=== PATIENT | male | born 1980 | race Caucasian/White ===

== ENCOUNTER 2017-04-15 05:59 | Inpatient (IN) | payer OTHER ==
[~2017-04-15] VITALS: Ht 167.6 cm; Wt 103.4 kg
[2017-04-15] MEDS ORDERED: MAGNESIUM/ALUMINUM HYDROXIDE/SIMETHICONE 30ML UDC PO STA (06:27)
[2017-04-15] MEDS ORDERED: ONDANSETRON HCL 4MG/2ML VIAL IV STA (06:27)
[2017-04-15] MEDS ORDERED: SODIUM CHLORIDE 0.9% 1,000 ML IV ONE ×2 (06:27→07:45)
[2017-04-15] MEDS ORDERED: FAMOTIDINE 20MG/2ML VIAL IV STA (06:27)
[2017-04-15 06:41] LABS: BASOPHILS % 0.5 % (0.0-2.0); EOSINOPHILS % 1.6 % (0.0-5.0); HEMATOCRIT. 51.6 % (42.0-52.0); HEMOGLOBIN. 17.6 g/dL (14.0-18.0); LYMPHOCYTES % 18.1 % (20.0-50.0); MEAN CORPUSCULAR HEMOGLOBIN 28.1 pg (28.0-32.0); MEAN CORPUSCULAR VOLUME 82.2 fL (80.0-94.0); MEAN PLATELET VOLUME 9.5 fl (7.4-10.4); NEUTROPHILS % 73.8 % (40.0-76.0); PLATELET 166 x1000/uL (130-400); RED BLOOD CELL COUNT 6.27 mill/uL (4.7-6.1); RED CELL DISTRIBUTION WIDTH 13.3 % (11.6-14.6)
[2017-04-15 06:47] LABS: INR 1.1; PROTHROMBIN TIME 11.1 sec (9.4-11.6)
[2017-04-15 06:57] LABS: CARBON DIOXIDE 24 mEq/L (21-32); CHLORIDE 101 mEq/L (98-107); ETHANOL BLOOD < 10 mg/dL; TROPONIN I < 0.02 ng/mL (0.00-0.04)
[2017-04-15] MEDS ORDERED: FENTANYL CITRATE/PF 50MCG/ML 2ML VIAL IV ONE (08:30)
[2017-04-15 08:34] LABS: GLUCOSE URINE 3+ (NEGATIVE); KETONES URINE TRACE (NEGATIVE); LEUKOCYTE ESTERASE URINE NEGATIVE (NEGATIVE); NITRITE URINE NEGATIVE (NEGATIVE); OCCULT BLOOD URINE NEGATIVE (NEGATIVE); PH URINE 5.5 (4.5-8.0); PROTEIN URINE TRACE (NEGATIVE); SPECIFIC GRAVITY URINE 1.039 (1.005-1.030); UROBILINOGEN URINE 0.2 E.U./dL (0.2-1.0)
[2017-04-15 08:36] LABS: CLARITY URINE CLEAR (CLEAR); COLOR URINE YELLOW (YELLOW)
[2017-04-15 09:09] LABS: *AMPHETAMINES SCREEN URINE NEGATIVE (NEGATIVE); *BARBITURATES SCREEN URINE NEGATIVE (NEGATIVE); *BENZODIAZEPINES SCREEN URINE NEGATIVE (NEGATIVE); *COCAINE SCREEN URINE NEGATIVE (NEGATIVE); CANNABINOID URINE SCREEN PRESUMTIVE POSITIVE (NEGATIVE); METHADONE URINE SCREEN NEGATIVE (NEGATIVE); OPIATES URINE SCREEN NEGATIVE (NEGATIVE); PHENCYCLIDINE URINE SCREEN NEGATIVE (NEGATIVE)
[2017-04-15 12:00] VITALS: BP 105/59
[2017-04-15] MEDS ORDERED: INSASP SUBCUT (13:33)
[2017-04-15] MEDS ORDERED: HYDR25TA (13:33)
[2017-04-15 13:38] VITALS: BP 105/59
[2017-04-15] MEDS ORDERED: IPRATROPIUM/ALBUTEROL 0.5-3(2.5)MG/3ML NEB INH PRN ×2 (15:45→16:30)
[2017-04-15] MEDS ORDERED: DEXTROSE 50% WATER 50ML SYRINGE IV PRN ×2 (15:45→16:00)
[2017-04-15] MEDS ORDERED: ONDANSETRON HCL 4MG/2ML VIAL IV PRN ×2 (15:45→16:30)
[2017-04-15] MEDS ORDERED: ACETAMINOPHEN 325MG TABLET PO PRN (15:45)
[2017-04-15] MEDS ORDERED: DIPHENHYDRAMINE 50MG/ML VIAL IV PRN (15:45)
[2017-04-15] MEDS ORDERED: CLONIDINE 0.1MG TABLET PO PRN (15:45)
[2017-04-15 16:00] VITALS: BP 123/71
[2017-04-15] MEDS ORDERED: SODIUM CHLORIDE 0.9% 1,000 ML IV SCH (16:08)
[2017-04-15] MEDS: HYDROCODONE/ACETAMINOPHEN 5/325MG TABLET PO PRN ×2 (16:14→20:28)
[2017-04-15] MEDS ORDERED: DOCUSATE SODIUM 100MG CAPSULE PO PRN (16:30)
[2017-04-15] MEDS: BLOOD SUGAR DIAGNOSTIC STRIP TEST SCH ×2 (17:16→20:29)
[2017-04-15] MEDS: ENOXAPARIN 30MG/0.3ML SYR SUBCUT SCH (17:18)
[2017-04-15] MEDS ORDERED: BLOOD SUGAR DIAGNOSTIC STRIP TEST SCH (17:20)
[2017-04-15] MEDS ORDERED: INSULIN LISPRO 100 UNITS/ML SUBCUT SCH (17:50)
[2017-04-15] MEDS ORDERED: MVI, ADULT NO.1 10 ML, FOLIC ACID 1 MG, THIAMINE HCL 100 MG in SODIUM CHLORIDE 0.9% 1,0... IV NR ×4 (18:00)
[2017-04-15] MEDS: INSULIN LISPRO 100 UNITS/ML SUBCUT SCH ×2 (18:20→23:13)
[2017-04-15 20:00] VITALS: BP 119/76
[2017-04-15] MEDS ORDERED: MAGNESIUM 1 G PREMIX 100 ML IV NR (21:00)
[2017-04-15 23:48] LABS: CREATINE KINASE 44 IU/L (39-308); CREATINE KINASE MB FRACTION < 0.5 ng/mL (0.5-3.6); TROPONIN I < 0.02 ng/mL (0.00-0.04)
[2017-04-16] VITALS: BP 116/63
[2017-04-16] MEDS ORDERED: SODIUM CHLORIDE 0.9% 1,000 ML IV SCH (02:00)
[2017-04-16] MEDS: HYDROCODONE/ACETAMINOPHEN 5/325MG TABLET PO PRN ×3 (03:14→13:13)
[2017-04-16 04:00] VITALS: BP 116/66
[2017-04-16 06:25] LABS: BASOPHILS % 0.3 % (0.0-2.0); EOSINOPHILS % 1.9 % (0.0-5.0); HEMATOCRIT. 45.9 % (42.0-52.0); HEMOGLOBIN. 15.7 g/dL (14.0-18.0); LYMPHOCYTES % 29.2 % (20.0-50.0); MEAN CORPUSCULAR HEMOGLOBIN 28.4 pg (28.0-32.0); NEUTROPHILS % 61.6 % (40.0-76.0); RED BLOOD CELL COUNT 5.53 mill/uL (4.7-6.1); RED CELL DISTRIBUTION WIDTH 13.4 % (11.6-14.6)
[2017-04-16] MEDS: BLOOD SUGAR DIAGNOSTIC STRIP TEST SCH ×2 (06:51→12:24)
[2017-04-16] MEDS: ENOXAPARIN 30MG/0.3ML SYR SUBCUT SCH (06:51)
[2017-04-16] MEDS: INSULIN LISPRO 100 UNITS/ML SUBCUT SCH ×2 (06:57→13:16)
[2017-04-16 07:27] LABS: CLARITY URINE CLEAR (CLEAR); COLOR URINE DARK YELLOW (YELLOW); GLUCOSE URINE 3+ (NEGATIVE); KETONES URINE NEGATIVE (NEGATIVE); LEUKOCYTE ESTERASE URINE NEGATIVE (NEGATIVE); NITRITE URINE NEGATIVE (NEGATIVE); OCCULT BLOOD URINE NEGATIVE (NEGATIVE); PH URINE 5.5 (4.5-8.0); PROTEIN URINE 1+ (NEGATIVE); SPECIFIC GRAVITY URINE 1.038 (1.005-1.030)
[2017-04-16 07:44] LABS: CARBON DIOXIDE 26 mEq/L (21-32); CHLORIDE 101 mEq/L (98-107)
[2017-04-16 07:56] LABS: HDL CHOLESTEROL 25 mg/dL (40-59); LDL CHOLESTEROL 81 mg/dL (5-100)
[2017-04-16 08:00] VITALS: BP 135/80
[2017-04-16] MEDS ORDERED: THIAMINE HCL 100MG TABLET PO SCH (09:00)
[2017-04-16] MEDS ORDERED: FOLIC ACID 1MG TABLET PO SCH (09:00)
[2017-04-16] MEDS ORDERED: MULTIVITAMINS,THER W-MINERALS TABLET PO SCH (09:00)
[2017-04-16 10:54] LABS: PLATELET 147 x1000/uL (130-400)
[2017-04-16 12:00] VITALS: BP 131/84
[2017-04-16 15:38] VITALS: BP 131/84
== END 2017-04-16 16:20 | disposition home or self-care (01) | DRG 282 ==
LOC: ER 05:59 → 6EST 07:42 → EDBEDREQ 07:52 → EDBEDREQTM 07:52 → ENRESERV 11:48
PROVIDERS: ADMIT Internal Medicine; ATTEND Internal Medicine
DX: K85.20 Alcohol induced acute pancreatitis without necrosis or infection (principal); E10.65 Type 1 diabetes mellitus with hyperglycemia; K70.30 Alcoholic cirrhosis of liver without ascites; F17.210 Nicotine dependence, cigarettes, uncomplicated; Z79.4 Long term (current) use of insulin
CPT/HCPCS: 36415; 71010; 76700; 80053; 80061; 80305; 81001; 82550; 82553; 82962; 83036; 83690; 83735; 84443; 84484; 85025; 85610; 87040; 87086; 93005; 93970; 96361; 96374; 96375; 99285; G0482; J1650; J1815; J2405; J3010; J3411; J3475; J3490; J7030

== ENCOUNTER 2019-02-10 07:27 | Emergency (ER) | payer SELFPAY ==
[~2019-02-10] VITALS: Ht 167.6 cm; Wt 100.0 kg
[~2019-02-10 07:27] MED LIST: HYDR25TA; INSASP SUBCUT
[2019-02-10] MEDS ORDERED: METOCLOPRAMIDE HCL 10MG/2ML VIAL IV STA (08:38)
[2019-02-10] MEDS ORDERED: MORPHINE SULFATE 4 MG/ML CPJ (NOT FOR IM USE) IV STA (08:38)
[2019-02-10] MEDS ORDERED: ONDANSETRON HCL 4MG/2ML INJ IV STA (08:38)
[2019-02-10] MEDS ORDERED: SODIUM CHLORIDE 0.9% 1,000 ML IV ONE (08:38)
[2019-02-10 09:07] LABS: BASOPHILS % 0.4 % (0.0-2.0); EOSINOPHILS % 1.2 % (0.0-5.0); LYMPHOCYTES % 18.4 % (20.0-50.0); MEAN CORPUSCULAR HEMOGLOBIN 28.4 pg (28.0-32.0); MEAN CORPUSCULAR VOLUME 83.6 fL (80.0-94.0); MEAN PLATELET VOLUME 9.6 fl (7.4-10.4); PLATELET 158 x1000/uL (130-400); RED BLOOD CELL COUNT 5.98 mill/uL (4.7-6.1); RED CELL DISTRIBUTION WIDTH 13.7 % (11.6-14.6)
[2019-02-10 09:11] LABS: CHLORIDE 103 mEq/L (98-107)
[2019-02-10 09:12] LABS: PROTHROMBIN TIME 10.6 sec (9.6-11.0)
[2019-02-10 09:15] LABS: ETHANOL BLOOD < 10 mg/dL
[2019-02-10 11:15] VITALS: BP 145/98
[2019-02-10] MEDS ORDERED: IOHEXOL-300 100 ML BOTTLE ONE (13:47)
== END 2019-02-10 13:15 | disposition home or self-care (01) ==
LOC: ER 07:27 → CANBEDREQ 19:16
DX: R10.12 Left upper quadrant pain (principal); R11.2 Nausea with vomiting, unspecified; R10.84 Generalized abdominal pain; E11.65 Type 2 diabetes mellitus with hyperglycemia; F12.10 Cannabis abuse, uncomplicated; F17.200 Nicotine dependence, unspecified, uncomplicated; Z79.4 Long term (current) use of insulin; Z86.19 Personal history of other infectious and parasitic diseases
CPT/HCPCS: 36415; 71045; 74177; 80053; 80320; 82962; 83690; 84484; 85025; 85610; 93005; 96361; 96374; 96375; 99284; J2270; J2405; J2765; J7030; Q9967; G0480

== ENCOUNTER 2019-02-18 15:48 | Emergency (ER) | payer SELFPAY ==
[~2019-02-18] VITALS: Ht 170.2 cm; Wt 94.5 kg
[2019-02-18] MEDS ORDERED: SODIUM CHLORIDE 0.9% 1,000 ML IV ONE (15:55)
[2019-02-18 16:20] LABS: BASOPHILS % 0.4 % (0.0-2.0); EOSINOPHILS % 0.2 % (0.0-5.0); HEMATOCRIT. 52.4 % (42.0-52.0); HEMOGLOBIN. 17.7 g/dL (14.0-18.0); LYMPHOCYTES % 11.2 % (20.0-50.0); MEAN CORPUSCULAR HEMOGLOBIN 28.3 pg (28.0-32.0); MEAN PLATELET VOLUME 9.7 fl (7.4-10.4); MONOCYTES % 4.3 % (2.0-8.0); NEUTROPHILS % 83.9 % (40.0-76.0); PLATELET 224 x1000/uL (130-400); RED BLOOD CELL COUNT 6.24 mill/uL (4.7-6.1); RED CELL DISTRIBUTION WIDTH 13.8 % (11.6-14.6)
[2019-02-18 16:22] LABS: CHLORIDE 99 mEq/L (98-107)
[2019-02-18 16:23] LABS: INR 1.1
[2019-02-18 19:19] LABS: CLARITY URINE CLEAR (CLEAR); COLOR URINE YELLOW (YELLOW); KETONES URINE 1+ (NEGATIVE); LEUKOCYTE ESTERASE URINE NEGATIVE (NEGATIVE); NITRITE URINE NEGATIVE (NEGATIVE); OCCULT BLOOD URINE NEGATIVE (NEGATIVE); PROTEIN URINE 2+ (NEGATIVE); SPECIFIC GRAVITY URINE 1.048 (1.005-1.030)
[2019-02-18 20:55] VITALS: BP 136/81
== END 2019-02-18 20:58 | disposition home or self-care (01) ==
LOC: ER 15:48
DX: R56.9 Unspecified convulsions (principal); R10.9 Unspecified abdominal pain; E11.9 Type 2 diabetes mellitus without complications; Z79.4 Long term (current) use of insulin
CPT/HCPCS: 36415; 71045; 74176; 80053; 81003; 82962; 83690; 85025; 85610; 99284; J7030

== ENCOUNTER 2019-02-20 13:20 | Emergency (ER) | payer MEDICAID ==
[~2019-02-20] VITALS: Ht 175.3 cm; Wt 95.0 kg
[2019-02-20 15:39] VITALS: BP 154/87
== END 2019-02-20 16:23 | disposition left against medical advice (07) ==
LOC: ER 13:20
DX: R10.9 Unspecified abdominal pain (principal); F12.10 Cannabis abuse, uncomplicated; E11.9 Type 2 diabetes mellitus without complications; I10 Essential (primary) hypertension
CPT/HCPCS: 99283

== ENCOUNTER 2019-04-16 09:22 | Emergency (ER) | payer SELFPAY ==
[~2019-04-16] VITALS: Ht 182.9 cm; Wt 90.0 kg
[2019-04-16] MEDS ORDERED: MORPHINE SULFATE 4 MG/ML CPJ (NOT FOR IM USE) IV STA (10:05)
[2019-04-16] MEDS ORDERED: SODIUM CHLORIDE 0.9% 1,000 ML IV ONE (10:05)
[2019-04-16] MEDS ORDERED: FAMOTIDINE 20MG/2ML VIAL IV STA (10:05)
[2019-04-16] MEDS ORDERED: METOCLOPRAMIDE HCL 10MG/2ML VIAL IV ONE (10:15)
[2019-04-16 10:21] LABS: BASOPHILS % 0.3 % (0.0-2.0); EOSINOPHILS % 0.6 % (0.0-5.0); HEMATOCRIT. 48.5 % (42.0-52.0); HEMOGLOBIN. 16.4 g/dL (14.0-18.0); LYMPHOCYTES % 18.7 % (20.0-50.0); MEAN CORPUSCULAR HEMOGLOBIN 28.3 pg (28.0-32.0); MEAN CORPUSCULAR VOLUME 83.6 fL (80.0-94.0); MEAN PLATELET VOLUME 9.8 fl (7.4-10.4); MONOCYTES % 6.3 % (2.0-8.0); NEUTROPHILS % 74.1 % (40.0-76.0); PLATELET 187 x1000/uL (130-400); RED CELL DISTRIBUTION WIDTH 13.7 % (11.6-14.6)
[2019-04-16 10:25] LABS: CHLORIDE 101 mEq/L (98-107)
[2019-04-16 10:26] LABS: INR 1.1; PROTHROMBIN TIME 11.4 sec (9.6-11.0)
[2019-04-16 12:44] VITALS: BP 112/82
[2019-04-16 12:54] LABS: CLARITY URINE CLEAR (CLEAR); COLOR URINE YELLOW (YELLOW); KETONES URINE 1+ (NEGATIVE); LEUKOCYTE ESTERASE URINE NEGATIVE (NEGATIVE); NITRITE URINE NEGATIVE (NEGATIVE); OCCULT BLOOD URINE NEGATIVE (NEGATIVE); PH URINE 6.5 (4.5-8.0); PROTEIN URINE 2+ (NEGATIVE); SPECIFIC GRAVITY URINE 1.035 (1.005-1.030)
== END 2019-04-16 12:47 | disposition home or self-care (01) ==
LOC: ER 09:22
DX: K31.84 Gastroparesis (principal); R56.9 Unspecified convulsions; E11.9 Type 2 diabetes mellitus without complications; I10 Essential (primary) hypertension; F17.200 Nicotine dependence, unspecified, uncomplicated; Z71.6 Tobacco abuse counseling; Z79.4 Long term (current) use of insulin
CPT/HCPCS: 36415; 70450; 80053; 81003; 83690; 85025; 85610; 96361; 96374; 96375; 99284; 99406; J2270; J2765; J3490; J7030

== ENCOUNTER 2019-04-22 21:28 | Emergency (ER) | payer SELFPAY ==
[~2019-04-22] VITALS: Ht 172.7 cm; Wt 82.0 kg
[2019-04-22] MEDS ORDERED: LORAZEPAM 2MG/ML CPJ ONE (21:58)
[2019-04-22] MEDS ORDERED: SODIUM CHLORIDE 0.9% 1,000 ML IV ONE (22:12)
[2019-04-22] MEDS ORDERED: METOCLOPRAMIDE HCL 10MG/2ML VIAL IV STA (22:12)
[2019-04-22 22:36] LABS: BASOPHILS % 0.3 % (0.0-2.0); EOSINOPHILS % 1.1 % (0.0-5.0); HEMATOCRIT. 48.6 % (42.0-52.0); HEMOGLOBIN. 16.2 g/dL (14.0-18.0); LYMPHOCYTES % 23.6 % (20.0-50.0); MEAN CORPUSCULAR HEMOGLOBIN 27.9 pg (28.0-32.0); MEAN CORPUSCULAR VOLUME 83.7 fL (80.0-94.0); MEAN PLATELET VOLUME 9.2 fl (7.4-10.4); MONOCYTES % 6.8 % (2.0-8.0); NEUTROPHILS % 68.2 % (40.0-76.0); PLATELET 200 x1000/uL (130-400); RED BLOOD CELL COUNT 5.81 mill/uL (4.7-6.1); RED CELL DISTRIBUTION WIDTH 13.9 % (11.6-14.6)
[2019-04-22 22:39] LABS: CHLORIDE 103 mEq/L (98-107)
[2019-04-22 22:43] LABS: ETHANOL BLOOD < 10 mg/dL
[2019-04-23 05:10] LABS: CLARITY URINE CLEAR (CLEAR); COLOR URINE DARK YELLOW (YELLOW); KETONES URINE 1+ (NEGATIVE); LEUKOCYTE ESTERASE URINE NEGATIVE (NEGATIVE); NITRITE URINE NEGATIVE (NEGATIVE); OCCULT BLOOD URINE NEGATIVE (NEGATIVE); PH URINE 6.5 (4.5-8.0); PROTEIN URINE 2+ (NEGATIVE); SPECIFIC GRAVITY URINE 1.025 (1.005-1.030)
[2019-04-23 05:40] VITALS: BP 130/75
[2019-04-23 05:46] LABS: *COCAINE SCREEN URINE NEGATIVE (NEGATIVE)
[2019-04-23 05:47] LABS: *AMPHETAMINES SCREEN URINE NEGATIVE (NEGATIVE); *BARBITURATES SCREEN URINE NEGATIVE (NEGATIVE); CANNABINOID URINE SCREEN PRESUMTIVE POSITIVE (NEGATIVE); METHADONE URINE SCREEN NEGATIVE (NEGATIVE); OPIATES URINE SCREEN NEGATIVE (NEGATIVE); PHENCYCLIDINE URINE SCREEN NEGATIVE (NEGATIVE)
[2019-04-23 05:48] LABS: *BENZODIAZEPINES SCREEN URINE NEGATIVE (NEGATIVE)
== END 2019-04-23 05:40 | disposition home or self-care (01) ==
LOC: ER 21:28
DX: R10.9 Unspecified abdominal pain (principal); G89.29 Other chronic pain; E11.43 Type 2 diabetes mellitus with diabetic autonomic (poly)neuropathy; K31.84 Gastroparesis; I10 Essential (primary) hypertension; F17.200 Nicotine dependence, unspecified, uncomplicated; Z79.4 Long term (current) use of insulin
CPT/HCPCS: 36415; 70450; 71045; 74176; 80053; 80305; 80320; 81003; 83690; 85025; 93005; 96374; 99284; J2060; J2765; J7030; G0480

== ENCOUNTER 2019-06-02 23:59 | Emergency (ER) | payer SELFPAY ==
[~2019-06-02] VITALS: Ht 177.8 cm; Wt 113.0 kg
[2019-06-03 00:06] VITALS: BP 131/76
== END 2019-06-03 01:16 | disposition left against medical advice (07) ==
LOC: ER 23:59
DX: R11.0 Nausea (principal); Z53.21 Procedure and treatment not carried out due to patient leaving prior to being seen by health care provider

== ENCOUNTER 2019-06-04 13:48 | Inpatient (IN) | payer SELFPAY ==
[~2019-06-04] VITALS: Ht 167.6 cm; Wt 103.0 kg
[2019-06-04] MEDS ORDERED: SODIUM CHLORIDE 0.9% 1,000 ML IV ONE ×2 (14:12→15:38)
[2019-06-04] MEDS ORDERED: ACTIVATED CHARCOAL 50 G/240 ML TUBE PO ONE (14:45)
[2019-06-04] MEDS ORDERED: ONDANSETRON HCL 4MG/2ML INJ IV ONE ×3 (14:45→16:15)
[2019-06-04] MEDS ORDERED: ONDANSETRON HCL 4MG/2ML INJ ONE (14:53)
[2019-06-04 15:00] LABS: BASOPHILS % 0.7 % (0.0-2.0); EOSINOPHILS % 0.2 % (0.0-5.0); HEMOGLOBIN. 17.7 g/dL (14.0-18.0); MEAN CORPUSCULAR HEMOGLOBIN 28.1 pg (28.0-32.0); MEAN CORPUSCULAR VOLUME 84.3 fL (80.0-94.0); NEUTROPHILS % 72.1 % (40.0-76.0); PLATELET 273 x1000/uL (130-400); RED BLOOD CELL COUNT 6.29 mill/uL (4.7-6.1); RED CELL DISTRIBUTION WIDTH 14.1 % (11.6-14.6)
[2019-06-04 15:06] LABS: CHLORIDE 102 mEq/L (98-107)
[2019-06-04 15:10] LABS: ETHANOL BLOOD < 10 mg/dL
[2019-06-04 15:18] LABS: BG BASE EXCESS -6.9 mmol/L (-2.0-2.0); BG CARBOXYHEMOGLOBIN 2.5 % (0.5-1.5); BG DEOXYHEMOGLOBIN 2.5 % (0.0-5.0); BG FRACTION INSPIRED OXYGEN 21; BG HCO3 ACT 15.9 mmol/L (22.0-26.0); BG METHEMOGLOBIN 0.3 % (0.0-1.5); BG OXYGEN SATURATION 97.4 % (92.0-98.5); BG OXYHEMOGLOBIN 94.7 % (94.0-97.0); BG PCO2 26.6 mmHg (35.0-45.0); BG PH 7.394 (7.350-7.450); BG PO2 94.3 mmHg (75.0-100.0); BG SAMPLE SITE RIGHT RADIAL; BG TOTAL HEMOGLOBIN 17.4 g/dL (12.0-18.0); BG VENT MODE ROOM AIR
[2019-06-04] MEDS ORDERED: LORAZEPAM 2MG/ML CPJ IV ONE (16:15)
[2019-06-04] MEDS ORDERED: LEVETIRACETAM 500MG PREMIX 100 ML IV ONE (16:15)
[2019-06-04 17:18] LABS: BG BASE EXCESS -3.5 mmol/L (-2.0-2.0); BG CARBOXYHEMOGLOBIN 2.1 % (0.5-1.5); BG DEOXYHEMOGLOBIN 3.6 % (0.0-5.0); BG FRACTION INSPIRED OXYGEN 21; BG HCO3 ACT 20.5 mmol/L (22.0-26.0); BG METHEMOGLOBIN 0.2 % (0.0-1.5); BG OXYGEN SATURATION 96.3 % (92.0-98.5); BG OXYHEMOGLOBIN 94.1 % (94.0-97.0); BG PCO2 34.3 mmHg (35.0-45.0); BG PH 7.394 (7.350-7.450); BG PO2 84.4 mmHg (75.0-100.0); BG SAMPLE SITE RIGHT RADIAL; BG TOTAL HEMOGLOBIN 16.4 g/dL (12.0-18.0); BG VENT MODE ROOM AIR
[2019-06-04 19:48] LABS: CLARITY URINE CLEAR (CLEAR); COLOR URINE YELLOW (YELLOW); KETONES URINE 1+ (NEGATIVE); LEUKOCYTE ESTERASE URINE NEGATIVE (NEGATIVE); NITRITE URINE NEGATIVE (NEGATIVE); OCCULT BLOOD URINE TRACE (NEGATIVE); PROTEIN URINE 3+ (NEGATIVE); SPECIFIC GRAVITY URINE 1.021 (1.005-1.030)
[2019-06-04 20:22] LABS: *AMPHETAMINES SCREEN URINE NEGATIVE (NEGATIVE)
[2019-06-04 20:23] LABS: *BARBITURATES SCREEN URINE NEGATIVE (NEGATIVE); *BENZODIAZEPINES SCREEN URINE NEGATIVE (NEGATIVE); *COCAINE SCREEN URINE NEGATIVE (NEGATIVE); METHADONE URINE SCREEN NEGATIVE (NEGATIVE); OPIATES URINE SCREEN NEGATIVE (NEGATIVE); PHENCYCLIDINE URINE SCREEN NEGATIVE (NEGATIVE)
[2019-06-04 20:24] LABS: CANNABINOID URINE SCREEN PRESUMTIVE POSITIVE (NEGATIVE)
[2019-06-04] MEDS ORDERED: ACETAMINOPHEN 325MG TABLET PO PRN (22:45)
[2019-06-04] MEDS ORDERED: DIPHENHYDRAMINE 50MG/ML VIAL IV PRN (22:45)
[2019-06-04] MEDS ORDERED: DEXTROSE 50% WATER 50ML SYRINGE IV PRN (22:45)
[2019-06-04] MEDS ORDERED: MAGNESIUM/ALUMINUM HYDROXIDE/SIMETHICONE 30ML UDC PO PRN (22:45)
[2019-06-04] MEDS ORDERED: LORAZEPAM 2MG/ML CPJ IV PRN (22:45)
[2019-06-04 23:32] LABS: CHLORIDE 104 mEq/L (98-107)
[2019-06-05] VITALS (8 sets, daily range): BP systolic 106–135; BP diastolic 71–90
[2019-06-05] MEDS: ONDANSETRON HCL 4MG/2ML INJ IV PRN ×4 (03:33→13:36)
[2019-06-05 05:20] LABS: BASOPHILS % 0.4 % (0.0-2.0); EOSINOPHILS % 0.4 % (0.0-5.0); HEMATOCRIT. 43.5 % (42.0-52.0); HEMOGLOBIN. 14.6 g/dL (14.0-18.0); LYMPHOCYTES % 25.6 % (20.0-50.0); MEAN CORPUSCULAR HEMOGLOBIN 28.2 pg (28.0-32.0); MEAN CORPUSCULAR VOLUME 84.2 fL (80.0-94.0); MEAN PLATELET VOLUME 8.7 fl (7.4-10.4); MONOCYTES % 7.6 % (2.0-8.0); PLATELET 183 x1000/uL (130-400); RED BLOOD CELL COUNT 5.17 mill/uL (4.7-6.1)
[2019-06-05 05:27] LABS: CHLORIDE 103 mEq/L (98-107)
[2019-06-05 05:33] LABS: PHOSPHORUS 3.1 mg/dL (2.5-4.9)
[2019-06-05] MEDS: DEXT 5%/0.9% NACL 1,000 ML IV SCH ×3 (07:30→21:42)
[2019-06-05] MEDS ORDERED: METOCLOPRAMIDE HCL 10MG/2ML VIAL IV PRN (07:30)
[2019-06-05] MEDS ORDERED: LEVETIRACETAM 500MG PREMIX 100 ML IV NR (07:30)
[2019-06-05] MEDS ORDERED: PANTOPRAZOLE SODIUM 40 MG/VIAL IV NR (07:30)
[2019-06-05] MEDS: INSULIN LISPRO 100 UNITS/ML SUBCUT SCH ×4 (08:20→21:40)
[2019-06-05] MEDS: BLOOD SUGAR DIAGNOSTIC STRIP TEST SCH ×4 (09:00→21:29)
[2019-06-05] MEDS: SUCRALFATE 1 G/10 ML UDC PO SCH ×2 (18:05→21:29)
[2019-06-05] MEDS ORDERED: LEVETIRACETAM 500 MG in SODIUM CHLORIDE 0.9% 100 ML IV SCH (21:00)
[2019-06-05] MEDS: LEVETIRACETAM 1,000 MG in SODIUM CHLORIDE 0.9% 100 ML IV SCH (21:29)
[2019-06-05] MEDS: PANTOPRAZOLE SODIUM 40 MG/VIAL IV SCH (21:29)
[2019-06-06] VITALS (11 sets, daily range): BP systolic 108–150; BP diastolic 60–91
[2019-06-06] MEDS: SUCRALFATE 1 G/10 ML UDC PO SCH ×3 (07:44→18:21)
[2019-06-06] MEDS: BLOOD SUGAR DIAGNOSTIC STRIP TEST SCH ×3 (07:45→17:30)
[2019-06-06] MEDS: INSULIN LISPRO 100 UNITS/ML SUBCUT SCH ×3 (07:45→18:00)
[2019-06-06] MEDS: LEVETIRACETAM 1,000 MG in SODIUM CHLORIDE 0.9% 100 ML IV SCH (09:55)
[2019-06-06] MEDS: PANTOPRAZOLE SODIUM 40 MG/VIAL IV SCH (09:55)
[2019-06-06] MEDS: DEXT 5%/0.9% NACL 1,000 ML IV SCH ×3 (10:00→15:54)
[2019-06-06] MEDS ORDERED: INFLUENZA VIRUS VACCINE(AFLURIA) 0.5ML SYR IM ONE (15:30)
== END 2019-06-06 23:45 | disposition home or self-care (01) | DRG 812 ==
LOC: ER 13:48 → 5EST 17:45 → EDBEDREQSVC 17:48 → EDBEDREQTM 22:11 → ENRESERV 06-05 07:28
PROVIDERS: ADMIT Internal Medicine; ATTEND Internal Medicine
DX: T38.3X2A Poisoning by insulin and oral hypoglycemic [antidiabetic] drugs, intentional self-harm, initial encounter (principal); E87.2 Acidosis; K31.84 Gastroparesis; E11.43 Type 2 diabetes mellitus with diabetic autonomic (poly)neuropathy; I10 Essential (primary) hypertension; R45.851 Suicidal ideations; G40.909 Epilepsy, unspecified, not intractable, without status epilepticus; Y92.89 Other specified places as the place of occurrence of the external cause; Z83.3 Family history of diabetes mellitus
CPT/HCPCS: 36415; 36600; 71045; 80048; 80305; 80307; 80320; 80329; 81003; 82375; 82805; 82962; 83605; 83735; 84100; 90686; 93005; 99291; C9113; J1200; J1815; J1953; J2060; J2405; J7030; J7042; J7050; G0480

== ENCOUNTER 2019-07-18 03:07 | Emergency (ER) | payer SELFPAY ==
[~2019-07-18] VITALS: Ht 177.8 cm; Wt 80.0 kg
[2019-07-18] MEDS ORDERED: METOCLOPRAMIDE HCL 10MG/2ML VIAL IV STA (06:59)
[2019-07-18] MEDS ORDERED: SODIUM CHLORIDE 0.9% 1,000 ML IV ONE ×2 (06:59→08:00)
[2019-07-18 07:12] LABS: BASOPHILS % 0.4 % (0.0-2.0); EOSINOPHILS % 0.5 % (0.0-5.0); HEMATOCRIT. 45.6 % (42.0-52.0); HEMOGLOBIN. 15.3 g/dL (14.0-18.0); MEAN CORPUSCULAR HEMOGLOBIN 27.9 pg (28.0-32.0); MEAN CORPUSCULAR VOLUME 83.3 fL (80.0-94.0); MEAN PLATELET VOLUME 9.5 fl (7.4-10.4); NEUTROPHILS % 77.1 % (40.0-76.0); PLATELET 220 x1000/uL (130-400); RED BLOOD CELL COUNT 5.47 mill/uL (4.7-6.1); RED CELL DISTRIBUTION WIDTH 14.3 % (11.6-14.6)
[2019-07-18 07:32] LABS: CHLORIDE 102 mEq/L (98-107)
[2019-07-18 08:00] LABS: CLARITY URINE CLEAR (CLEAR); COLOR URINE DK YELLOW (YELLOW); KETONES URINE 2+ (NEGATIVE); LEUKOCYTE ESTERASE URINE NEGATIVE (NEGATIVE); NITRITE URINE NEGATIVE (NEGATIVE); OCCULT BLOOD URINE NEGATIVE (NEGATIVE); PROTEIN URINE 2+ (NEGATIVE); SPECIFIC GRAVITY URINE 1.028 (1.005-1.030)
[2019-07-18] MEDS ORDERED: MORPHINE SULFATE 4 MG/ML CPJ (NOT FOR IM USE) IV ONE (08:00)
[2019-07-18] MEDS ORDERED: ONDANSETRON HCL 4MG/2ML INJ IV ONE (08:00)
[2019-07-18] MEDS ORDERED: IOHEXOL-300 100 ML BOTTLE ONE (12:32)
[2019-07-18 12:46] VITALS: BP 126/73
== END 2019-07-18 13:32 | disposition home or self-care (01) ==
LOC: ER 03:07
DX: R10.9 Unspecified abdominal pain (principal); E11.43 Type 2 diabetes mellitus with diabetic autonomic (poly)neuropathy; K31.84 Gastroparesis; I10 Essential (primary) hypertension; F17.200 Nicotine dependence, unspecified, uncomplicated; Z79.4 Long term (current) use of insulin
CPT/HCPCS: 36415; 74177; 80053; 81003; 83690; 85025; 93005; 96361; 96374; 96375; 99284; J2270; J2405; J2765; J7030; Q9967; Z7610

== ENCOUNTER 2019-07-21 13:22 | Inpatient (IN) | payer MEDICAID, OTHER ==
[~2019-07-21] VITALS: Ht 167.6 cm; Wt 87.1 kg
[2019-07-21] MEDS ORDERED: SODIUM CHLORIDE 0.9% 1,000 ML IV ONE (14:20)
[2019-07-21 14:45] LABS: BASOPHILS % 0.6 % (0.0-2.0); EOSINOPHILS % 1.5 % (0.0-5.0); HEMATOCRIT. 46.6 % (42.0-52.0); HEMOGLOBIN. 15.7 g/dL (14.0-18.0); MEAN CORPUSCULAR VOLUME 83.2 fL (80.0-94.0); MEAN PLATELET VOLUME 8.7 fl (7.4-10.4); MONOCYTES % 6.4 % (2.0-8.0); NEUTROPHILS % 72.5 % (40.0-76.0); PLATELET 209 x1000/uL (130-400)
[2019-07-21 14:50] LABS: INR 1.2; PROTHROMBIN TIME 11.9 sec (9.6-11.0)
[2019-07-21 14:51] LABS: CHLORIDE 106 mEq/L (98-107)
[2019-07-21 14:55] LABS: ETHANOL BLOOD < 10 mg/dL
[2019-07-21 17:32] LABS: CLARITY URINE CLEAR (CLEAR); COLOR URINE YELLOW (YELLOW); KETONES URINE 1+ (NEGATIVE); LEUKOCYTE ESTERASE URINE NEGATIVE (NEGATIVE); NITRITE URINE NEGATIVE (NEGATIVE); OCCULT BLOOD URINE NEGATIVE (NEGATIVE); PH URINE 6.5 (4.5-8.0); PROTEIN URINE 2+ (NEGATIVE); SPECIFIC GRAVITY URINE 1.019 (1.005-1.030)
[2019-07-21 17:43] LABS: *AMPHETAMINES SCREEN URINE NEGATIVE (NEGATIVE); *BARBITURATES SCREEN URINE NEGATIVE (NEGATIVE); *BENZODIAZEPINES SCREEN URINE NEGATIVE (NEGATIVE); *COCAINE SCREEN URINE NEGATIVE (NEGATIVE); METHADONE URINE SCREEN NEGATIVE (NEGATIVE); OPIATES URINE SCREEN NEGATIVE (NEGATIVE)
[2019-07-21 17:44] LABS: CANNABINOID URINE SCREEN PRESUMTIVE POSITIVE (NEGATIVE); PHENCYCLIDINE URINE SCREEN NEGATIVE (NEGATIVE)
[2019-07-21] MEDS: SODIUM CHLORIDE 0.9% 1,000 ML IV SCH (19:07)
[2019-07-21] MEDS: ONDANSETRON HCL 4MG/2ML INJ IV PRN (19:43)
[2019-07-21] MEDS: ACETAMINOPHEN 325MG TABLET PO PRN (19:44)
[2019-07-22] MEDS: FAMOTIDINE 20MG/2ML VIAL IV SCH ×2 (03:20→15:21)
[2019-07-22] MEDS: ACETAMINOPHEN 325MG TABLET PO PRN ×2 (03:20→14:20)
[2019-07-22 06:18] LABS: EOSINOPHILS % 2.8 % (0.0-5.0); HEMATOCRIT. 44.3 % (42.0-52.0); HEMOGLOBIN. 14.7 g/dL (14.0-18.0); LYMPHOCYTES % 30.4 % (20.0-50.0); MEAN CORPUSCULAR HEMOGLOBIN 27.9 pg (28.0-32.0); MEAN CORPUSCULAR VOLUME 84.1 fL (80.0-94.0); MEAN PLATELET VOLUME 8.7 fl (7.4-10.4); MONOCYTES % 7.2 % (2.0-8.0); NEUTROPHILS % 58.6 % (40.0-76.0); PLATELET 181 x1000/uL (130-400); RED BLOOD CELL COUNT 5.28 mill/uL (4.7-6.1); RED CELL DISTRIBUTION WIDTH 13.9 % (11.6-14.6)
[2019-07-22 06:34] LABS: CHLORIDE 107 mEq/L (98-107)
[2019-07-22 08:50] VITALS: BP 140/82
[2019-07-22 09:00] VITALS: BP 140/82
[2019-07-22] MEDS ORDERED: HEPARIN 5000 UNITS/ML VIAL SUBCUT SCH (09:00)
[2019-07-22 09:12] VITALS: BP 123/76
[2019-07-22] MEDS: SODIUM CHLORIDE 0.9% 1,000 ML IV SCH (10:11)
[2019-07-22] MEDS ORDERED: FAMO20TA8 MT (12:03)
[2019-07-22 12:50] VITALS: BP 134/74
[2019-07-22] MEDS: ONDANSETRON HCL 4MG/2ML INJ IV PRN (14:20)
[2019-07-22 16:58] VITALS: BP 150/86
[2019-07-22 17:30] VITALS: BP 145/96
== END 2019-07-22 18:02 | disposition home or self-care (01) | DRG 812 ==
LOC: ER 13:28 → 7WST 17:58 → ENRESERV 07-22 07:15
PROVIDERS: ADMIT Family Medicine Adult Medicine; ATTEND Family Medicine Adult Medicine
DX: T42.6X1A Poisoning by other antiepileptic and sedative-hypnotic drugs, accidental (unintentional), initial encounter (principal); G93.41 Metabolic encephalopathy; I10 Essential (primary) hypertension; E11.65 Type 2 diabetes mellitus with hyperglycemia; F17.200 Nicotine dependence, unspecified, uncomplicated; F32.9 Major depressive disorder, single episode, unspecified; F41.9 Anxiety disorder, unspecified; Z91.5 Personal history of self-harm; Y92.89 Other specified places as the place of occurrence of the external cause
CPT/HCPCS: 36415; 71045; 80053; 80305; 80307; 80320; 80329; 81003; 82962; 83036; 83735; 85025; 93005; 96361; 96372; 96374; 96375; 97161; 99291; J1644; J2405; J3490; J7030; G0480

== ENCOUNTER 2019-08-30 15:19 | Emergency (ER) | payer SELFPAY ==
[~2019-08-30] VITALS: Ht 167.6 cm; Wt 92.0 kg
[~2019-08-30 15:19] MED LIST changes: +FAMO20TA8 MT
[2019-08-30 16:00] VITALS: BP 125/76
== END 2019-08-30 17:32 | disposition left against medical advice (07) ==
LOC: ER 15:19
DX: R10.10 Upper abdominal pain, unspecified (principal); Z53.21 Procedure and treatment not carried out due to patient leaving prior to being seen by health care provider

== ENCOUNTER 2019-09-01 14:33 | Inpatient (IN) | payer MEDICAID, OTHER ==
[~2019-09-01] VITALS: Ht 167.6 cm; Wt 91.2 kg
[2019-09-01] MEDS ORDERED: SODIUM CHLORIDE 0.9% 1,000 ML IV ONE ×2 (15:00→18:17)
[2019-09-01] MEDS ORDERED: KETOROLAC 30MG/ML VIAL IV STA (15:00)
[2019-09-01 15:13] LABS: CHLORIDE 105 mEq/L (98-107)
[2019-09-01 15:16] LABS: BASOPHILS % 0.3 % (0.0-2.0); EOSINOPHILS % 1.1 % (0.0-5.0); HEMOGLOBIN. 16.1 g/dL (14.0-18.0); LYMPHOCYTES % 22.7 % (20.0-50.0); MEAN CORPUSCULAR HEMOGLOBIN 27.9 pg (28.0-32.0); MEAN CORPUSCULAR VOLUME 84.8 fL (80.0-94.0); MEAN PLATELET VOLUME 9.5 fl (7.4-10.4); MONOCYTES % 6.8 % (2.0-8.0); NEUTROPHILS % 69.1 % (40.0-76.0); PLATELET 203 x1000/uL (130-400); RED BLOOD CELL COUNT 5.77 mill/uL (4.7-6.1); RED CELL DISTRIBUTION WIDTH 15.1 % (11.6-14.6)
[2019-09-01 15:20] LABS: ETHANOL BLOOD < 10 mg/dL
[2019-09-01] MEDS ORDERED: LEVETIRACETAM 500MG PREMIX 100 ML IV ONE (16:00)
[2019-09-01 16:50] LABS: CLARITY URINE CLEAR (CLEAR); COLOR URINE YELLOW (YELLOW); KETONES URINE TRACE (NEGATIVE); LEUKOCYTE ESTERASE URINE NEGATIVE (NEGATIVE); NITRITE URINE NEGATIVE (NEGATIVE); OCCULT BLOOD URINE NEGATIVE (NEGATIVE); PH URINE 7.5 (4.5-8.0); PROTEIN URINE 1+ (NEGATIVE); SPECIFIC GRAVITY URINE 1.019 (1.005-1.030)
[2019-09-01 17:18] LABS: *AMPHETAMINES SCREEN URINE NEGATIVE (NEGATIVE); *BARBITURATES SCREEN URINE NEGATIVE (NEGATIVE); *BENZODIAZEPINES SCREEN URINE NEGATIVE (NEGATIVE); *COCAINE SCREEN URINE NEGATIVE (NEGATIVE); CANNABINOID URINE SCREEN PRESUMTIVE POSITIVE (NEGATIVE); METHADONE URINE SCREEN NEGATIVE (NEGATIVE); OPIATES URINE SCREEN NEGATIVE (NEGATIVE); PHENCYCLIDINE URINE SCREEN NEGATIVE (NEGATIVE)
[2019-09-01] MEDS ORDERED: MORPHINE SULFATE 2 MG/ML CPJ (NOT FOR IM USE) IV ONE (18:15)
[2019-09-01] MEDS ORDERED: METRONIDAZOLE 500 MG PREMIX 100 ML IV ONE (18:30)
[2019-09-01] MEDS ORDERED: LEVOFLOXACIN 500MG PREMIX 100 ML IV ONE (18:30)
[2019-09-01] MEDS ORDERED: IOHEXOL-300 100 ML BOTTLE ONE (18:51)
[2019-09-01] MEDS ORDERED: IPRATROPIUM/ALBUTEROL 0.5-3(2.5)MG/3ML NEB NEB PRN (19:15)
[2019-09-01] MEDS ORDERED: LORAZEPAM 2MG/ML CPJ IV PRN (19:15)
[2019-09-01] MEDS ORDERED: DOCUSATE SODIUM 100MG CAPSULE PO PRN (19:15)
[2019-09-01] MEDS ORDERED: ACETAMINOPHEN 325MG TABLET PO PRN (19:15)
[2019-09-01] MEDS ORDERED: CLONIDINE 0.1MG TABLET PO PRN (19:15)
[2019-09-01] MEDS ORDERED: DEXTROSE 50% WATER 50ML SYRINGE IV PRN (19:15)
[2019-09-01] MEDS ORDERED: NA PHOS,M-B/NA PHOS,DI-BA ENEMA 118ML PR PRN (19:15)
[2019-09-01] MEDS ORDERED: HYDRALAZINE 20MG/ML VIAL IV PRN (19:15)
[2019-09-01] MEDS ORDERED: DIPHENHYDRAMINE 50MG/ML VIAL IV PRN (19:15)
[2019-09-01] MEDS ORDERED: GUAIFENESIN 200MG/10ML SUGAR FREE UDC PO PRN (19:15)
[2019-09-01] MEDS ORDERED: MAGNESIUM/ALUMINUM HYDROXIDE/SIMETHICONE 30ML UDC PO PRN (19:15)
[2019-09-01] MEDS ORDERED: HYDROCODONE/ACETAMINOPHEN 10/325MG TABLET PO PRN (19:15)
[2019-09-01 22:30] VITALS: BP 113/72
[2019-09-01] MEDS: INSULIN LISPRO 100 UNITS/ML SUBCUT SCH (22:30)
[2019-09-01] MEDS: BLOOD SUGAR DIAGNOSTIC STRIP TEST SCH (22:59)
[2019-09-01] MEDS: SODIUM CHLORIDE 0.9% INJ 3ML FLUSH IVF SCH (22:59)
[2019-09-01] MEDS: SODIUM CHLORIDE 0.45% 1,000 ML IV SCH (23:46)
[2019-09-01] MEDS: ENOXAPARIN 40MG/0.4ML SYR SUBCUT SCH (23:46)
[2019-09-02] VITALS: BP_SYST 113; BP_SYST 131; BP_DIAS 72; BP_DIAS 81
[2019-09-02] MEDS: ONDANSETRON HCL 4MG/2ML INJ IV PRN ×4 (00:39→21:03)
[2019-09-02] MEDS: MORPHINE SULFATE 2 MG/ML CPJ (NOT FOR IM USE) IV PRN ×5 (00:45→21:01)
[2019-09-02] MEDS ORDERED: TOPUD MT (01:42)
[2019-09-02 01:44] LABS: CREATINE KINASE 48 IU/L (39-308)
[2019-09-02 01:45] LABS: CREATINE KINASE MB FRACTION < 1.0 ng/mL (0.5-3.6)
[2019-09-02 04:00] VITALS: BP 131/79
[2019-09-02] MEDS: METRONIDAZOLE 500 MG PREMIX 100 ML IV SCH ×2 (05:54→13:14)
[2019-09-02] MEDS: SODIUM CHLORIDE 0.9% INJ 3ML FLUSH IVF SCH ×3 (05:54→21:24)
[2019-09-02] MEDS: BLOOD SUGAR DIAGNOSTIC STRIP TEST SCH ×4 (05:55→21:00)
[2019-09-02] MEDS: INSULIN LISPRO 100 UNITS/ML SUBCUT SCH ×4 (05:55→21:25)
[2019-09-02 07:57] LABS: BASOPHILS % 0.6 % (0.0-2.0); EOSINOPHILS % 1.7 % (0.0-5.0); HEMATOCRIT. 41.2 % (42.0-52.0); HEMOGLOBIN. 14.2 g/dL (14.0-18.0); MEAN CORPUSCULAR VOLUME 84.2 fL (80.0-94.0); MEAN PLATELET VOLUME 9.4 fl (7.4-10.4); MONOCYTES % 7.6 % (2.0-8.0); NEUTROPHILS % 54.1 % (40.0-76.0); PLATELET 155 x1000/uL (130-400); RED BLOOD CELL COUNT 4.89 mill/uL (4.7-6.1); RED CELL DISTRIBUTION WIDTH 14.4 % (11.6-14.6)
[2019-09-02 08:00] VITALS: BP 123/84
[2019-09-02 08:13] LABS: CHLORIDE 109 mEq/L (98-107)
[2019-09-02] MEDS: SODIUM CHLORIDE 0.45% 1,000 ML IV SCH ×2 (08:21→21:24)
[2019-09-02 08:31] LABS: CREATINE KINASE MB FRACTION < 1.0 ng/mL (0.5-3.6)
[2019-09-02 11:41] VITALS: BP 131/84
[2019-09-02 16:00] VITALS: BP 132/84
[2019-09-02] MEDS: ENOXAPARIN 40MG/0.4ML SYR SUBCUT SCH (16:39)
[2019-09-02] MEDS ORDERED: LEVOFLOXACIN 500MG PREMIX 100 ML IV SCH (18:00)
[2019-09-02 20:00] VITALS: BP 123/83
[2019-09-02] MEDS: LEVETIRACETAM 500MG TABLET PO SCH (21:24)
[2019-09-03] VITALS: BP 116/86
[2019-09-03] MEDS: METRONIDAZOLE 500 MG PREMIX 100 ML IV SCH ×2 (00:20→08:36)
[2019-09-03] MEDS: INSULIN LISPRO 100 UNITS/ML SUBCUT SCH (06:33)
[2019-09-03] MEDS: BLOOD SUGAR DIAGNOSTIC STRIP TEST SCH (06:33)
[2019-09-03] MEDS: SODIUM CHLORIDE 0.9% INJ 3ML FLUSH IVF SCH (06:34)
[2019-09-03 08:00] VITALS: BP 120/77
[2019-09-03] MEDS: LEVETIRACETAM 500MG TABLET PO SCH (08:36)
[2019-09-03] MEDS: ONDANSETRON HCL 4MG/2ML INJ IV PRN (08:36)
[2019-09-03] MEDS: MORPHINE SULFATE 2 MG/ML CPJ (NOT FOR IM USE) IV PRN (08:37)
[2019-09-03 10:27] VITALS: BP 120/77
== END 2019-09-03 10:55 | disposition home or self-care (01) | DRG 249 ==
LOC: ER 14:33 → 5WST 18:43 → ENRESERV 21:20 → 5WST 09-02 04:20
PROVIDERS: ADMIT Internal Medicine; ATTEND Internal Medicine
DX: K52.9 Noninfective gastroenteritis and colitis, unspecified (principal); K31.84 Gastroparesis; E11.43 Type 2 diabetes mellitus with diabetic autonomic (poly)neuropathy; K76.0 Fatty (change of) liver, not elsewhere classified; F17.210 Nicotine dependence, cigarettes, uncomplicated; I10 Essential (primary) hypertension; Z91.19 Patient's noncompliance with other medical treatment and regimen; Z79.899 Other long term (current) drug therapy; G40.909 Epilepsy, unspecified, not intractable, without status epilepticus
CPT/HCPCS: 36415; 74177; 80053; 80305; 80320; 81003; 82550; 82553; 82962; 83036; 84484; 85025; 93005; 93970; 96365; 99285; J1650; J1815; J1885; J1953; J1956; J2270; J2405; J3490; J7030; Q9967; G0480

== ENCOUNTER 2019-09-06 19:47 | Inpatient (IN) | payer MEDICAID, OTHER ==
[~2019-09-06] VITALS: Ht 167.6 cm; Wt 85.8 kg
[~2019-09-06 19:47] MED LIST changes: +TOPUD MT
[2019-09-06] MEDS ORDERED: ONDANSETRON HCL 4MG/2ML INJ IV STA (20:03)
[2019-09-06] MEDS ORDERED: SODIUM CHLORIDE 0.9% 1,000 ML IV ONE (20:03)
[2019-09-06 20:38] LABS: CHLORIDE 106 mEq/L (98-107)
[2019-09-06 20:42] LABS: ETHANOL BLOOD < 10 mg/dL
[2019-09-06] MEDS ORDERED: LORAZEPAM 2MG/ML CPJ IV ONE (20:45)
[2019-09-06 20:52] LABS: BASOPHILS % 0.4 % (0.0-2.0); EOSINOPHILS % 1.5 % (0.0-5.0); HEMATOCRIT. 50.5 % (42.0-52.0); HEMOGLOBIN. 16.5 g/dL (14.0-18.0); LYMPHOCYTES % 27.8 % (20.0-50.0); MEAN CORPUSCULAR HEMOGLOBIN 28.1 pg (28.0-32.0); MEAN CORPUSCULAR VOLUME 85.8 fL (80.0-94.0); MEAN PLATELET VOLUME 9.7 fl (7.4-10.4); MONOCYTES % 8.5 % (2.0-8.0); NEUTROPHILS % 61.8 % (40.0-76.0); PLATELET 205 x1000/uL (130-400); RED BLOOD CELL COUNT 5.89 mill/uL (4.7-6.1); RED CELL DISTRIBUTION WIDTH 14.9 % (11.6-14.6)
[2019-09-06] MEDS ORDERED: LEVETIRACETAM 1000MG/100ML 100 ML IV ONE (21:00)
[2019-09-06 21:44] LABS: CLARITY URINE CLEAR (CLEAR); COLOR URINE YELLOW (YELLOW); KETONES URINE NEGATIVE (NEGATIVE); LEUKOCYTE ESTERASE URINE NEGATIVE (NEGATIVE); NITRITE URINE NEGATIVE (NEGATIVE); OCCULT BLOOD URINE TRACE (NEGATIVE); PROTEIN URINE 2+ (NEGATIVE); UROBILINOGEN URINE 0.2 E.U./dL (0.2-1.0)
[2019-09-06 21:55] LABS: *BARBITURATES SCREEN URINE NEGATIVE (NEGATIVE)
[2019-09-06 21:56] LABS: *AMPHETAMINES SCREEN URINE NEGATIVE (NEGATIVE); *BENZODIAZEPINES SCREEN URINE NEGATIVE (NEGATIVE); *COCAINE SCREEN URINE NEGATIVE (NEGATIVE); METHADONE URINE SCREEN NEGATIVE (NEGATIVE); PHENCYCLIDINE URINE SCREEN NEGATIVE (NEGATIVE)
[2019-09-06 21:57] LABS: CANNABINOID URINE SCREEN PRESUMTIVE POSITIVE (NEGATIVE)
[2019-09-06] MEDS ORDERED: KETOROLAC 30MG/ML VIAL IV ONE (22:30)
[2019-09-07] MEDS ORDERED: ACETAMINOPHEN 325MG TABLET PO PRN (08:45)
[2019-09-07] MEDS: LEVETIRACETAM 500MG TABLET PO SCH ×2 (09:57→20:58)
[2019-09-07] MEDS: ONDANSETRON HCL 4MG/2ML INJ IV PRN (10:10)
[2019-09-07] MEDS: LORAZEPAM 2MG/ML CPJ IV PRN (10:33)
[2019-09-07] MEDS ORDERED: AMLODIPINE 5MG TABLET PO SCH (12:00)
[2019-09-07] MEDS ORDERED: METOCLOPRAMIDE HCL 5MG TABLET PO SCH (12:00)
[2019-09-07 19:00] LABS: OPIATES URINE SCREEN NEGATIVE (NEGATIVE)
[2019-09-07] MEDS ORDERED: HYDRALAZINE 20MG/ML VIAL IV PRN (19:00)
[2019-09-07 20:00] VITALS: BP 120/70
[2019-09-07] MEDS ORDERED: DEXTROSE 50% WATER 50ML SYRINGE IV PRN (20:30)
[2019-09-07] MEDS ORDERED: MORPHINE SULFATE 2 MG/ML CPJ (NOT FOR IM USE) IV PRN (20:30)
[2019-09-07] MEDS: BLOOD SUGAR DIAGNOSTIC STRIP TEST SCH (20:49)
[2019-09-07] MEDS: INSULIN LISPRO 100 UNITS/ML SUBCUT SCH (20:49)
[2019-09-07] MEDS: METOCLOPRAMIDE HCL 5MG TABLET PO SCH (20:58)
[2019-09-07] MEDS: AMLODIPINE 5MG TABLET PO SCH (20:58)
[2019-09-07 23:31] VITALS: BP 120/70
[2019-09-08] VITALS: BP 110/62
[2019-09-08] MEDS: METOCLOPRAMIDE HCL 5MG TABLET PO SCH ×5 (00:24→23:24)
[2019-09-08] MEDS: KETOROLAC 30MG/ML VIAL IV PRN ×4 (02:33→23:24)
[2019-09-08 04:00] VITALS: BP 115/60
[2019-09-08] MEDS: BLOOD SUGAR DIAGNOSTIC STRIP TEST SCH ×4 (05:47→20:13)
[2019-09-08] MEDS: INSULIN LISPRO 100 UNITS/ML SUBCUT SCH ×4 (06:50→20:14)
[2019-09-08 08:00] VITALS: BP 123/87
[2019-09-08 08:01] LABS: HEMATOCRIT 43.9 % (42.0-52.0); HEMOGLOBIN 14.9 g/dL (14.0-18.0); MEAN CORPUSCULAR HEMOGLOBIN 28.5 pg (28.0-32.0); RED BLOOD CELL COUNT 5.23 mill/uL (4.7-6.1); RED CELL DISTRIBUTION WIDTH 14.7 % (11.6-14.6)
[2019-09-08 08:04] LABS: CHLORIDE 105 mEq/L (98-107)
[2019-09-08 08:36] LABS: HEPATITIS B SURFACE ANTIGEN NEGATIVE
[2019-09-08 08:44] LABS: PLATELET 133 x1000/uL (130-400)
[2019-09-08] MEDS: LEVETIRACETAM 500MG TABLET PO SCH ×2 (08:55→20:19)
[2019-09-08] MEDS: AMLODIPINE 5MG TABLET PO SCH (08:56)
[2019-09-08 09:05] LABS: HEPATITIS A AB IGM NEGATIVE (NEGATIVE)
[2019-09-08 12:00] VITALS: BP 112/74
[2019-09-08] MEDS: PANTOPRAZOLE SODIUM 40 MG/VIAL IV SCH ×2 (14:20→20:19)
[2019-09-08 16:00] VITALS: BP 107/68
[2019-09-08 20:00] VITALS: BP 120/80
[2019-09-08] MEDS: LORAZEPAM 2MG/ML CPJ IV PRN (20:40)
[2019-09-08] MEDS: ONDANSETRON HCL 4MG/2ML INJ IV PRN (22:10)
[2019-09-09] VITALS: BP 115/65
[2019-09-09 04:00] VITALS: BP 119/60
[2019-09-09] MEDS: METOCLOPRAMIDE HCL 5MG TABLET PO SCH (05:17)
[2019-09-09] MEDS: KETOROLAC 30MG/ML VIAL IV PRN ×2 (05:36→11:24)
[2019-09-09] MEDS: BLOOD SUGAR DIAGNOSTIC STRIP TEST SCH ×2 (05:52→11:45)
[2019-09-09 06:18] LABS: HEMATOCRIT 45.6 % (42.0-52.0); HEMOGLOBIN 15.3 g/dL (14.0-18.0); MEAN CORPUSCULAR HEMOGLOBIN 28.4 pg (28.0-32.0); MEAN CORPUSCULAR VOLUME 84.8 fL (80.0-94.0); PLATELET 142 x1000/uL (130-400); RED BLOOD CELL COUNT 5.37 mill/uL (4.7-6.1); RED CELL DISTRIBUTION WIDTH 14.3 % (11.6-14.6)
[2019-09-09 06:26] LABS: INR 1.1; PARTIAL THROMBOPLASTIN TIME 29.3 sec (23.4-31.0); PROTHROMBIN TIME 12.2 sec (9.6-11.0)
[2019-09-09] MEDS: INSULIN LISPRO 100 UNITS/ML SUBCUT SCH ×2 (06:28→12:15)
[2019-09-09 06:41] LABS: CHLORIDE 107 mEq/L (98-107)
[2019-09-09 08:00] VITALS: BP 120/77
[2019-09-09] MEDS: AMLODIPINE 5MG TABLET PO SCH (09:19)
[2019-09-09] MEDS: LEVETIRACETAM 500MG TABLET PO SCH (09:19)
[2019-09-09] MEDS: PANTOPRAZOLE SODIUM 40 MG/VIAL IV SCH (09:19)
[2019-09-09] MEDS ORDERED: METO5TAB2 PO (11:31)
[2019-09-09] MEDS ORDERED: KEPP500 PO (11:31)
[2019-09-09] MEDS ORDERED: METOCLOPRAMIDE HCL 10MG TABLET PO SCH (12:00)
[2019-09-09] MEDS ORDERED: MIDAZOLAM HCL 5 MG/5 ML VIAL ONE ×2 (12:26→12:27)
[2019-09-09] MEDS ORDERED: FENTANYL CITRATE/PF 50MCG/ML 2ML VIAL ONE (12:27)
[2019-09-09] MEDS ORDERED: FENTANYL CITRATE/PF 50MCG/ML 2ML VIAL IV PRN (12:30)
[2019-09-09] MEDS ORDERED: MIDAZOLAM HCL 5 MG/5 ML VIAL IV PRN (12:31)
[2019-09-09] MEDS ORDERED: OMEP20CA14 MT (13:32)
[2019-09-09 16:00] VITALS: BP 109/64
[2019-09-09 16:09] VITALS: BP 109/64
== END 2019-09-09 16:30 | disposition home or self-care (01) | DRG 53 ==
LOC: ER 19:47 → 5WST 09-07 00:45 → ENRESERV 09-07 17:22
PROVIDERS: ADMIT Internal Medicine; ATTEND Internal Medicine
PROC: 0DB68ZX Excision of Stomach, Via Natural or Artificial Opening Endoscopic, Diagnostic (ICD-10-PCS; principal; 2019-09-09)
DX: G40.909 Epilepsy, unspecified, not intractable, without status epilepticus (principal); K29.51 Unspecified chronic gastritis with bleeding; K76.0 Fatty (change of) liver, not elsewhere classified; E11.9 Type 2 diabetes mellitus without complications; F17.210 Nicotine dependence, cigarettes, uncomplicated; F32.9 Major depressive disorder, single episode, unspecified; K29.60 Other gastritis without bleeding; G89.29 Other chronic pain; I10 Essential (primary) hypertension; Z79.4 Long term (current) use of insulin; Z80.1 Family history of malignant neoplasm of trachea, bronchus and lung; Z82.49 Family history of ischemic heart disease and other diseases of the circulatory system; Z83.3 Family history of diabetes mellitus; Z91.5 Personal history of self-harm; Z79.899 Other long term (current) drug therapy
CPT/HCPCS: 36415; 74176; 80048; 80053; 80076; 80305; 80307; 80320; 80329; 81003; 82270; 82962; 85025; 85027; 86677; 86705; 86709; 86803; 87340; 88305; 88313; 93005; 99285; C9113; J1815; J1885; J1953; J2060; J2250; J2270; J2405; J3010; J7030; J8597; G0480

== ENCOUNTER 2019-10-06 10:14 | Emergency (ER) | payer MEDICAID ==
[~2019-10-06] VITALS: Ht 165.1 cm; Wt 90.0 kg
[~2019-10-06 10:14] MED LIST changes: -FAMO20TA8 MT; -HYDR25TA; -INSASP SUBCUT; +KEPP500 PO; +METO5TAB2 PO; +OMEP20CA14 MT; -TOPUD MT
[2019-10-06] MEDS ORDERED: LORAZEPAM 2MG/ML CPJ ONE ×2 (10:21→10:36)
[2019-10-06] MEDS ORDERED: LEVETIRACETAM 500MG PREMIX 100 ML IV ONE (10:45)
[2019-10-06] MEDS ORDERED: LORAZEPAM 2MG/ML CPJ IV ONE ×2 (10:45)
[2019-10-06 11:11] LABS: BASOPHILS % 0.4 % (0.0-2.0); EOSINOPHILS % 0.7 % (0.0-5.0); HEMOGLOBIN. 15.7 g/dL (14.0-18.0); LYMPHOCYTES % 11.6 % (20.0-50.0); MEAN CORPUSCULAR HEMOGLOBIN 28.6 pg (28.0-32.0); MEAN CORPUSCULAR VOLUME 83.7 fL (80.0-94.0); MEAN PLATELET VOLUME 9.5 fl (7.4-10.4); MONOCYTES % 4.1 % (2.0-8.0); NEUTROPHILS % 83.2 % (40.0-76.0); PLATELET 142 x1000/uL (130-400); RED BLOOD CELL COUNT 5.49 mill/uL (4.7-6.1); RED CELL DISTRIBUTION WIDTH 14.3 % (11.6-14.6)
[2019-10-06 11:15] LABS: CLARITY URINE CLEAR (CLEAR); COLOR URINE YELLOW (YELLOW); KETONES URINE TRACE (NEGATIVE); LEUKOCYTE ESTERASE URINE NEGATIVE (NEGATIVE); NITRITE URINE NEGATIVE (NEGATIVE); OCCULT BLOOD URINE NEGATIVE (NEGATIVE); PROTEIN URINE 2+ (NEGATIVE); SPECIFIC GRAVITY URINE 1.022 (1.005-1.030)
[2019-10-06 11:19] LABS: CHLORIDE 101 mEq/L (98-107)
[2019-10-06 11:22] LABS: ETHANOL BLOOD < 10 mg/dL
[2019-10-06 11:25] LABS: *AMPHETAMINES SCREEN URINE NEGATIVE (NEGATIVE); *BARBITURATES SCREEN URINE NEGATIVE (NEGATIVE); *BENZODIAZEPINES SCREEN URINE NEGATIVE (NEGATIVE); *COCAINE SCREEN URINE NEGATIVE (NEGATIVE); METHADONE URINE SCREEN NEGATIVE (NEGATIVE); OPIATES URINE SCREEN NEGATIVE (NEGATIVE)
[2019-10-06 11:26] LABS: CANNABINOID URINE SCREEN PRESUMTIVE POSITIVE (NEGATIVE); PHENCYCLIDINE URINE SCREEN NEGATIVE (NEGATIVE)
[2019-10-06 11:47] LABS: CARBAMAZEPINE < 0.5 ug/mL (4-12); PHENOBARBITAL < 2.1 ug/mL (15.0-40.0); VALPROIC ACID < 3.0 ug/mL (50-100)
[2019-10-06 14:47] VITALS: BP 133/88
== END 2019-10-06 14:50 | disposition home or self-care (01) ==
LOC: ER 10:14
DX: Z03.818 Encounter for observation for suspected exposure to other biological agents ruled out (principal); G40.909 Epilepsy, unspecified, not intractable, without status epilepticus; R06.02 Shortness of breath; E11.9 Type 2 diabetes mellitus without complications; R11.2 Nausea with vomiting, unspecified; I10 Essential (primary) hypertension; F12.10 Cannabis abuse, uncomplicated; Z79.899 Other long term (current) drug therapy
CPT/HCPCS: 36415; 71045; 80053; 80156; 80165; 80184; 80185; 80305; 80320; 81003; 82962; 83690; 85025; 87420; 87635; 87804; 93005; 96374; 96375; 99285; J1953; J2060; G0480

== ENCOUNTER 2019-10-20 17:43 | Emergency (ER) | payer MEDICAID ==
[~2019-10-20] VITALS: Ht 180.3 cm; Wt 100.0 kg
[2019-10-20] MEDS ORDERED: MAGNESIUM/ALUMINUM HYDROXIDE/SIMETHICONE 30ML UDC PO STA (18:00)
[2019-10-20] MEDS ORDERED: ONDANSETRON HCL 4MG/2ML INJ IV STA (18:00)
[2019-10-20] MEDS ORDERED: KETOROLAC 30MG/ML VIAL IV STA (18:00)
[2019-10-20] MEDS ORDERED: SODIUM CHLORIDE 0.9% 1,000 ML IV ONE (18:00)
[2019-10-20 18:25] LABS: BASOPHILS % 0.4 % (0.0-2.0); EOSINOPHILS % 1.6 % (0.0-5.0); HEMATOCRIT. 46.1 % (42.0-52.0); HEMOGLOBIN. 15.5 g/dL (14.0-18.0); LYMPHOCYTES % 30.7 % (20.0-50.0); MEAN CORPUSCULAR HEMOGLOBIN 28.5 pg (28.0-32.0); MEAN CORPUSCULAR VOLUME 84.7 fL (80.0-94.0); MEAN PLATELET VOLUME 9.3 fl (7.4-10.4); MONOCYTES % 7.6 % (2.0-8.0); NEUTROPHILS % 59.7 % (40.0-76.0); PLATELET 160 x1000/uL (130-400); RED BLOOD CELL COUNT 5.44 mill/uL (4.7-6.1); RED CELL DISTRIBUTION WIDTH 13.9 % (11.6-14.6)
[2019-10-20 18:32] LABS: CHLORIDE 106 mEq/L (98-107)
[2019-10-20 18:36] LABS: ETHANOL BLOOD < 10 mg/dL
[2019-10-20 18:44] LABS: INR 1.1; PROTHROMBIN TIME 11.4 sec (9.6-11.0)
[2019-10-20] MEDS ORDERED: VISCOUS LIDOCAINE 2% 15 ML UDC PO STA (18:52)
[2019-10-20] MEDS ORDERED: DICYCLOMINE 10 MG/5 ML ORAL SYR PO STA (18:52)
[2019-10-20] MEDS ORDERED: LORAZEPAM 1MG TABLET PO ONE (20:00)
[2019-10-20] MEDS ORDERED: MORPHINE SULFATE 10 MG/ML CPJ IM ONE (20:00)
[2019-10-20 20:39] VITALS: BP 120/85
== END 2019-10-20 20:41 | disposition home or self-care (01) ==
LOC: ER 17:43
DX: R10.9 Unspecified abdominal pain (principal); R11.2 Nausea with vomiting, unspecified; E11.9 Type 2 diabetes mellitus without complications; I10 Essential (primary) hypertension; Z79.899 Other long term (current) drug therapy
CPT/HCPCS: 36415; 74176; 80053; 80320; 83690; 85025; 85610; 93005; 99285; J1885; J2405; J7030; G0480

== ENCOUNTER 2019-11-17 00:41 | Emergency (ER) | payer MEDICAID ==
[~2019-11-17] VITALS: Ht 167.6 cm; Wt 90.0 kg
[2019-11-17] MEDS ORDERED: FAMOTIDINE 20MG/2ML VIAL IV STA (02:05)
[2019-11-17] MEDS ORDERED: SODIUM CHLORIDE 0.9% 1,000 ML IV ONE (02:05)
[2019-11-17] MEDS ORDERED: METOCLOPRAMIDE HCL 10MG/2ML VIAL IV STA (02:05)
[2019-11-17] MEDS ORDERED: MORPHINE SULFATE 4 MG/ML CPJ (NOT FOR IM USE) IV STA (02:05)
[2019-11-17 02:55] LABS: BASOPHILS % 0.2 % (0.0-2.0); EOSINOPHILS % 0.6 % (0.0-5.0); HEMATOCRIT. 47.7 % (42.0-52.0); LYMPHOCYTES % 11.9 % (20.0-50.0); MEAN CORPUSCULAR HEMOGLOBIN 28.2 pg (28.0-32.0); MEAN CORPUSCULAR VOLUME 84.1 fL (80.0-94.0); MEAN PLATELET VOLUME 9.7 fl (7.4-10.4); MONOCYTES % 3.9 % (2.0-8.0); NEUTROPHILS % 83.4 % (40.0-76.0); PLATELET 220 x1000/uL (130-400); RED BLOOD CELL COUNT 5.67 mill/uL (4.7-6.1); RED CELL DISTRIBUTION WIDTH 14.4 % (11.6-14.6)
[2019-11-17 03:01] LABS: CHLORIDE 104 mEq/L (98-107)
[2019-11-17 03:08] LABS: ETHANOL BLOOD < 10 mg/dL
[2019-11-17] MEDS ORDERED: METOCLOPRAMIDE HCL 10MG/2ML VIAL IV ONE (05:45)
[2019-11-17 07:08] VITALS: BP 135/78
== END 2019-11-17 07:15 | disposition home or self-care (01) ==
LOC: ER 00:41
DX: E11.43 Type 2 diabetes mellitus with diabetic autonomic (poly)neuropathy (principal); K31.84 Gastroparesis; E11.9 Type 2 diabetes mellitus without complications; I10 Essential (primary) hypertension; Z79.899 Other long term (current) drug therapy
CPT/HCPCS: 36415; 80053; 80320; 83690; 85025; 96361; 96374; 96375; 96376; 99285; J2270; J2765; J3490; J7030; G0480

== ENCOUNTER 2019-11-19 06:28 | Emergency (ER) | payer MEDICAID ==
[~2019-11-19] VITALS: Ht 170.2 cm; Wt 91.0 kg
[2019-11-19] MEDS ORDERED: LORAZEPAM 2MG/ML CPJ IM ONE (06:45)
[2019-11-19] MEDS ORDERED: SODIUM CHLORIDE 0.9% 1,000 ML IV ONE (06:47)
[2019-11-19] MEDS ORDERED: KETOROLAC 30MG/ML VIAL IV STA (06:47)
[2019-11-19] MEDS ORDERED: LORAZEPAM 2MG/ML CPJ ONE (06:49)
[2019-11-19] MEDS ORDERED: METOCLOPRAMIDE HCL 10MG/2ML VIAL IV ONE ×2 (07:00)
[2019-11-19 07:03] LABS: BASOPHILS % 0.4 % (0.0-2.0); EOSINOPHILS % 0.4 % (0.0-5.0); HEMATOCRIT. 49.5 % (42.0-52.0); HEMOGLOBIN. 16.8 g/dL (14.0-18.0); LYMPHOCYTES % 26.4 % (20.0-50.0); MEAN CORPUSCULAR HEMOGLOBIN 28.7 pg (28.0-32.0); MEAN CORPUSCULAR VOLUME 84.6 fL (80.0-94.0); MEAN PLATELET VOLUME 9.1 fl (7.4-10.4); MONOCYTES % 9.4 % (2.0-8.0); NEUTROPHILS % 63.4 % (40.0-76.0); PLATELET 241 x1000/uL (130-400); RED BLOOD CELL COUNT 5.85 mill/uL (4.7-6.1)
[2019-11-19 07:05] LABS: CLARITY URINE CLEAR (CLEAR); COLOR URINE DARK YELLOW (YELLOW); KETONES URINE 2+ (NEGATIVE); LEUKOCYTE ESTERASE URINE NEGATIVE (NEGATIVE); NITRITE URINE NEGATIVE (NEGATIVE); OCCULT BLOOD URINE NEGATIVE (NEGATIVE); PH URINE 5.5 (4.5-8.0); PROTEIN URINE 2+ (NEGATIVE); SPECIFIC GRAVITY URINE 1.036 (1.005-1.030)
[2019-11-19 07:10] LABS: PROTHROMBIN TIME 11.3 sec (9.6-11.0)
[2019-11-19 07:12] LABS: CHLORIDE 100 mEq/L (98-107)
[2019-11-19 07:15] LABS: ETHANOL BLOOD < 10 mg/dL
[2019-11-19] MEDS ORDERED: LEVETIRACETAM 500MG PREMIX 100 ML IV ONE (09:15)
[2019-11-19 11:06] VITALS: BP 116/72
== END 2019-11-19 11:18 | disposition home or self-care (01) ==
LOC: ER 06:28
DX: R10.13 Epigastric pain (principal); K31.84 Gastroparesis; G40.909 Epilepsy, unspecified, not intractable, without status epilepticus; I10 Essential (primary) hypertension; E11.9 Type 2 diabetes mellitus without complications
CPT/HCPCS: 36415; 80053; 80320; 81003; 82962; 83690; 85025; 85610; 96361; 96365; 96375; 99285; J1885; J1953; J2060; J2765; J7030; G0480

== ENCOUNTER 2019-11-20 19:04 | Emergency (ER) | payer MEDICAID ==
[~2019-11-20] VITALS: Ht 177.8 cm; Wt 85.0 kg
[2019-11-20] MEDS ORDERED: SODIUM CHLORIDE 0.9% 1,000 ML IV ONE (19:26)
[2019-11-20] MEDS ORDERED: METOCLOPRAMIDE HCL 10MG/2ML VIAL IV ONE (19:30)
[2019-11-20] MEDS ORDERED: LORAZEPAM 2MG/ML CPJ IV ONE (19:30)
[2019-11-20] MEDS ORDERED: LEVETIRACETAM 500MG PREMIX 100 ML IV ONE (19:30)
[2019-11-20 19:56] LABS: BASOPHILS % 0.2 % (0.0-2.0); CHLORIDE 105 mEq/L (98-107); EOSINOPHILS % 0.8 % (0.0-5.0); HEMATOCRIT. 46.4 % (42.0-52.0); HEMOGLOBIN. 15.4 g/dL (14.0-18.0); LYMPHOCYTES % 26.7 % (20.0-50.0); MEAN CORPUSCULAR HEMOGLOBIN 28.4 pg (28.0-32.0); MEAN CORPUSCULAR VOLUME 85.5 fL (80.0-94.0); MEAN PLATELET VOLUME 8.9 fl (7.4-10.4); MONOCYTES % 7.6 % (2.0-8.0); NEUTROPHILS % 64.7 % (40.0-76.0); PLATELET 218 x1000/uL (130-400); RED BLOOD CELL COUNT 5.43 mill/uL (4.7-6.1); RED CELL DISTRIBUTION WIDTH 14.1 % (11.6-14.6)
[2019-11-20 20:00] LABS: ETHANOL BLOOD < 10 mg/dL
[2019-11-20 21:33] LABS: CLARITY URINE CLEAR (CLEAR); COLOR URINE YELLOW (YELLOW); KETONES URINE NEGATIVE (NEGATIVE); LEUKOCYTE ESTERASE URINE NEGATIVE (NEGATIVE); NITRITE URINE NEGATIVE (NEGATIVE); OCCULT BLOOD URINE NEGATIVE (NEGATIVE); PH URINE 5.5 (4.5-8.0); PROTEIN URINE 1+ (NEGATIVE); SPECIFIC GRAVITY URINE 1.024 (1.005-1.030); UROBILINOGEN URINE 0.2 E.U./dL (0.2-1.0)
[2019-11-20 21:46] LABS: *AMPHETAMINES SCREEN URINE NEGATIVE (NEGATIVE); *BARBITURATES SCREEN URINE NEGATIVE (NEGATIVE); *BENZODIAZEPINES SCREEN URINE NEGATIVE (NEGATIVE); *COCAINE SCREEN URINE NEGATIVE (NEGATIVE); METHADONE URINE SCREEN NEGATIVE (NEGATIVE); OPIATES URINE SCREEN NEGATIVE (NEGATIVE)
[2019-11-20 21:47] LABS: CANNABINOID URINE SCREEN PRESUMTIVE POSITIVE (NEGATIVE); PHENCYCLIDINE URINE SCREEN NEGATIVE (NEGATIVE)
[2019-11-20 23:18] VITALS: BP 144/85
== END 2019-11-20 23:37 | disposition home or self-care (01) ==
LOC: ER 19:04
DX: R56.9 Unspecified convulsions (principal); F17.290 Nicotine dependence, other tobacco product, uncomplicated; E11.9 Type 2 diabetes mellitus without complications; I10 Essential (primary) hypertension; Z79.899 Other long term (current) drug therapy
CPT/HCPCS: 36415; 70450; 71045; 80053; 80305; 80320; 81003; 82962; 85025; 93005; 96365; 96375; 99285; 99406; J1953; J2060; J2765; J7030; G0480

== ENCOUNTER 2019-12-05 11:25 | Emergency (ER) | payer MEDICAID ==
[~2019-12-05] VITALS: Ht 167.6 cm; Wt 91.0 kg
[2019-12-05] MEDS ORDERED: ONDANSETRON HCL 4MG/2ML INJ IV STA (12:17)
[2019-12-05] MEDS ORDERED: KETOROLAC 30MG/ML VIAL IV STA (12:17)
[2019-12-05] MEDS ORDERED: MAGNESIUM/ALUMINUM HYDROXIDE/SIMETHICONE 30ML UDC PO STA (12:17)
[2019-12-05] MEDS ORDERED: SODIUM CHLORIDE 0.9% 1,000 ML IV ONE (12:17)
[2019-12-05] MEDS ORDERED: LEVETIRACETAM 500MG PREMIX 100 ML IV ONE (12:30)
[2019-12-05 12:31] LABS: BASOPHILS % 0.3 % (0.0-2.0); EOSINOPHILS % 0.3 % (0.0-5.0); HEMATOCRIT. 44.6 % (42.0-52.0); LYMPHOCYTES % 9.7 % (20.0-50.0); MEAN CORPUSCULAR HEMOGLOBIN 28.4 pg (28.0-32.0); MEAN CORPUSCULAR VOLUME 84.4 fL (80.0-94.0); MONOCYTES % 2.9 % (2.0-8.0); NEUTROPHILS % 86.8 % (40.0-76.0); RED BLOOD CELL COUNT 5.29 mill/uL (4.7-6.1); RED CELL DISTRIBUTION WIDTH 13.9 % (11.6-14.6)
[2019-12-05 12:38] LABS: PROTHROMBIN TIME 11.2 sec (9.6-11.0)
[2019-12-05 13:24] LABS: PLATELET 202 x1000/uL (130-400)
[2019-12-05 14:11] LABS: CLARITY URINE CLEAR (CLEAR); COLOR URINE YELLOW (YELLOW); KETONES URINE TRACE (NEGATIVE); LEUKOCYTE ESTERASE URINE NEGATIVE (NEGATIVE); NITRITE URINE NEGATIVE (NEGATIVE); OCCULT BLOOD URINE NEGATIVE (NEGATIVE); PROTEIN URINE 2+ (NEGATIVE); UROBILINOGEN URINE 0.2 E.U./dL (0.2-1.0)
[2019-12-05 14:47] LABS: *BARBITURATES SCREEN URINE NEGATIVE (NEGATIVE); *BENZODIAZEPINES SCREEN URINE NEGATIVE (NEGATIVE); METHADONE URINE SCREEN NEGATIVE (NEGATIVE); OPIATES URINE SCREEN NEGATIVE (NEGATIVE)
[2019-12-05 14:48] LABS: PHENCYCLIDINE URINE SCREEN NEGATIVE (NEGATIVE)
[2019-12-05 14:49] LABS: *AMPHETAMINES SCREEN URINE NEGATIVE (NEGATIVE); *COCAINE SCREEN URINE NEGATIVE (NEGATIVE); CANNABINOID URINE SCREEN PRESUMTIVE POSITIVE (NEGATIVE)
[2019-12-05 15:39] LABS: CHLORIDE 104 mEq/L (98-107)
[2019-12-05 15:42] LABS: ETHANOL BLOOD < 10 mg/dL
[2019-12-05 17:15] VITALS: BP 125/51
== END 2019-12-05 17:38 | disposition home or self-care (01) ==
LOC: ER 11:25
DX: R10.33 Periumbilical pain (principal); G40.909 Epilepsy, unspecified, not intractable, without status epilepticus
CPT/HCPCS: 36415; 74176; 80053; 80305; 80320; 81003; 83690; 85025; 85610; 93005; 96365; 96366; 96375; 99285; J1885; J1953; J2405; J7030; G0480

== ENCOUNTER 2020-08-07 15:26 | Emergency (ER) | payer MEDICARE ==
[~2020-08-07] VITALS: Ht 177.8 cm; Wt 82.0 kg
[2020-08-07 17:27] LABS: BASOPHILS % 0.2 % (0.0-2.0); EOSINOPHILS % 0.6 % (0.0-5.0); HEMATOCRIT. 43.2 % (42.0-52.0); HEMOGLOBIN. 14.2 g/dL (14.0-18.0); LYMPHOCYTES % 12.6 % (20.0-50.0); MEAN CORPUSCULAR VOLUME 82.3 fL (80.0-94.0); MEAN PLATELET VOLUME 8.4 fl (7.4-10.4); MONOCYTES % 5.2 % (2.0-8.0); NEUTROPHILS % 81.4 % (40.0-76.0); PLATELET 193 x1000/uL (130-400); RED BLOOD CELL COUNT 5.24 mill/uL (4.7-6.1); RED CELL DISTRIBUTION WIDTH 15.5 % (11.6-14.6)
[2020-08-07 17:28] LABS: CLARITY URINE CLEAR (CLEAR); COLOR URINE YELLOW (YELLOW); KETONES URINE TRACE (NEGATIVE); LEUKOCYTE ESTERASE URINE NEGATIVE (NEGATIVE); NITRITE URINE NEGATIVE (NEGATIVE); OCCULT BLOOD URINE NEGATIVE (NEGATIVE); PROTEIN URINE TRACE (NEGATIVE); SPECIFIC GRAVITY URINE 1.022 (1.005-1.030)
[2020-08-07 17:39] LABS: CHLORIDE 106 mEq/L (98-107)
[2020-08-07 18:36] VITALS: BP 116/72
[2020-08-08] MEDS ORDERED: ONDA4TAB5 MT (14:40)
== END 2020-08-07 18:58 | disposition home or self-care (01) ==
LOC: ER 15:26
DX: R56.9 Unspecified convulsions (principal); F10.229 Alcohol dependence with intoxication, unspecified; Y90.0 Blood alcohol level of less than 20 mg/100 ml; Z79.899 Other long term (current) drug therapy
CPT/HCPCS: 36415; 80053; 81003; 85025; 93005; 99284

== ENCOUNTER 2020-08-08 09:33 | Emergency (ER) | payer MEDICARE ==
[~2020-08-08] VITALS: Ht 170.2 cm; Wt 88.0 kg
[2020-08-08 09:34] VITALS: BP 165/75
[2020-08-08] MEDS ORDERED: FAMOTIDINE 20MG/2ML VIAL IV STA (10:20)
[2020-08-08] MEDS ORDERED: SODIUM CHLORIDE 0.9% 1,000 ML IV ONE (10:30)
[2020-08-08 10:40] LABS: BASOPHILS % 0.4 % (0.0-2.0); EOSINOPHILS % 0.6 % (0.0-5.0); HEMATOCRIT. 47.1 % (42.0-52.0); HEMOGLOBIN. 15.5 g/dL (14.0-18.0); LYMPHOCYTES % 15.5 % (20.0-50.0); MEAN CORPUSCULAR HEMOGLOBIN 27.1 pg (28.0-32.0); MEAN CORPUSCULAR VOLUME 82.5 fL (80.0-94.0); MEAN PLATELET VOLUME 8.4 fl (7.4-10.4); MONOCYTES % 4.4 % (2.0-8.0); NEUTROPHILS % 79.1 % (40.0-76.0); PLATELET 235 x1000/uL (130-400); RED BLOOD CELL COUNT 5.71 mill/uL (4.7-6.1); RED CELL DISTRIBUTION WIDTH 15.9 % (11.6-14.6)
[2020-08-08 10:42] LABS: CHLORIDE 104 mEq/L (98-107)
[2020-08-08 10:46] LABS: ETHANOL BLOOD < 10 mg/dL; INR 1.1; PROTHROMBIN TIME 11.6 sec (9.6-11.0)
[2020-08-08] MEDS ORDERED: LEVETIRACETAM 500MG PREMIX 100 ML IV ONE (12:30)
[2020-08-08] MEDS ORDERED: ONDANSETRON HCL 4MG/2ML INJ IV ONE ×2 (12:30→14:00)
[2020-08-08] MEDS ORDERED: KETOROLAC 30MG/ML VIAL IV ONE (14:00)
[2020-08-08] MEDS ORDERED: ONDA4TAB5 MT (14:40)
== END 2020-08-08 14:20 | disposition left against medical advice (07) ==
LOC: ER 09:33
DX: R10.13 Epigastric pain (principal); R11.2 Nausea with vomiting, unspecified; G40.909 Epilepsy, unspecified, not intractable, without status epilepticus; R45.1 Restlessness and agitation
CPT/HCPCS: 36415; 80053; 80165; 80320; 83690; 85025; 85610; 93005; 96361; 96365; 96375; 99284; J1953; J2405; J3490; J7030; G0480

== ENCOUNTER 2020-08-08 14:28 | Emergency (ER) | payer MEDICARE ==
[~2020-08-08] VITALS: Ht 167.6 cm; Wt 91.0 kg
[2020-08-08 14:35] VITALS: BP 107/90
[2020-08-08] MEDS ORDERED: ONDA4TAB5 MT (14:40)
[2020-08-08] MEDS ORDERED: CLONIDINE 0.2MG TABLET PO NR (14:45)
[2020-08-08] MEDS ORDERED: ONDANSETRON 4MG ODT PO NR (14:45)
== END 2020-08-08 16:15 | disposition home or self-care (01) ==
LOC: ER 14:36
DX: G40.909 Epilepsy, unspecified, not intractable, without status epilepticus (principal)
CPT/HCPCS: 99281

== ENCOUNTER 2020-08-22 14:36 | Emergency (ER) | payer MEDICARE ==
[~2020-08-22] VITALS: Ht 167.6 cm; Wt 78.0 kg
[~2020-08-22 14:36] MED LIST changes: +ONDA4TAB5 MT
[2020-08-22 14:40] VITALS: BP 142/71
[2020-09-09] MEDS ORDERED: METO5TAB86 MT (22:37)
[2020-09-11] MEDS ORDERED: KEPP500 PO (12:17)
== END 2020-08-22 14:53 | disposition left against medical advice (07) ==
LOC: ER 14:36
DX: Z53.21 Procedure and treatment not carried out due to patient leaving prior to being seen by health care provider (principal)
CPT/HCPCS: 93005

== ENCOUNTER 2020-08-23 18:17 | Emergency (ER) | payer MEDICARE ==
[~2020-08-23] VITALS: Ht 165.1 cm; Wt 73.0 kg
[2020-08-23] MEDS ORDERED: LEVETIRACETAM 1000MG PREMIX 100 ML IV ONE (19:00)
[2020-08-23] MEDS ORDERED: LORAZEPAM 2MG/ML CPJ IV ONE (19:00)
[2020-08-23 19:15] LABS: BASOPHILS % 0.5 % (0.0-2.0); EOSINOPHILS % 1.3 % (0.0-5.0); HEMATOCRIT. 44.9 % (42.0-52.0); HEMOGLOBIN. 14.4 g/dL (14.0-18.0); LYMPHOCYTES % 18.4 % (20.0-50.0); MEAN CORPUSCULAR HEMOGLOBIN 27.2 pg (28.0-32.0); MEAN CORPUSCULAR VOLUME 84.8 fL (80.0-94.0); MEAN PLATELET VOLUME 7.9 fl (7.4-10.4); MONOCYTES % 6.9 % (2.0-8.0); NEUTROPHILS % 72.9 % (40.0-76.0); PLATELET 212 x1000/uL (130-400); RED BLOOD CELL COUNT 5.29 mill/uL (4.7-6.1); RED CELL DISTRIBUTION WIDTH 15.8 % (11.6-14.6)
[2020-08-23 19:23] LABS: CHLORIDE 103 mEq/L (98-107)
[2020-08-24 00:35] VITALS: BP 105/63
[2020-09-09] MEDS ORDERED: METO5TAB86 MT (22:37)
[2020-09-11] MEDS ORDERED: KEPP500 PO (12:17)
== END 2020-08-24 01:01 | disposition home or self-care (01) ==
LOC: ER 18:17
DX: G40.909 Epilepsy, unspecified, not intractable, without status epilepticus (principal)
CPT/HCPCS: 36415; 70450; 80053; 85025; 93005; 96365; 96375; 99285; J1953; J2060

== ENCOUNTER 2020-09-07 23:29 | Emergency (ER) | payer MEDICARE ==
[~2020-09-07] VITALS: Ht 172.7 cm; Wt 75.0 kg
[2020-09-08] MEDS ORDERED: LEVETIRACETAM 500MG PREMIX 100 ML IV ONE (00:15)
[2020-09-08] MEDS ORDERED: SODIUM CHLORIDE 0.9% 1,000 ML IV ONE (00:15)
[2020-09-08 00:33] LABS: BASOPHILS % 0.9 % (0.0-2.0); EOSINOPHILS % 0.9 % (0.0-5.0); HEMATOCRIT. 41.8 % (42.0-52.0); HEMOGLOBIN. 14.1 g/dL (14.0-18.0); LYMPHOCYTES % 21.6 % (20.0-50.0); MEAN CORPUSCULAR HEMOGLOBIN 27.3 pg (28.0-32.0); MEAN CORPUSCULAR VOLUME 81.2 fL (80.0-94.0); MEAN PLATELET VOLUME 8.3 fl (7.4-10.4); NEUTROPHILS % 68.6 % (40.0-76.0); PLATELET 187 x1000/uL (130-400); RED BLOOD CELL COUNT 5.15 mill/uL (4.7-6.1); RED CELL DISTRIBUTION WIDTH 15.2 % (11.6-14.6)
[2020-09-08 00:41] LABS: CHLORIDE 104 mEq/L (98-107)
[2020-09-08 04:00] VITALS: BP 127/86
[2020-09-09] MEDS ORDERED: METO5TAB86 MT (22:37)
[2020-09-11] MEDS ORDERED: KEPP500 PO (12:17)
== END 2020-09-08 04:37 | disposition home or self-care (01) ==
LOC: ER 23:29
DX: G40.909 Epilepsy, unspecified, not intractable, without status epilepticus (principal); Z91.14 Patient's other noncompliance with medication regimen
CPT/HCPCS: 36415; 80053; 85025; 93005; 96365; 99284; J1953; J7030

== ENCOUNTER 2020-09-27 12:31 | Emergency (ER) | payer MEDICARE ==
[~2020-09-27] VITALS: Ht 177.8 cm; Wt 90.0 kg
[~2020-09-27 12:31] MED LIST changes: +METO5TAB86 MT
[2020-09-27] MEDS ORDERED: ACETAMINOPHEN 325MG TABLET PO STA (12:45)
[2020-09-27] MEDS ORDERED: ONDANSETRON 4MG ODT PO STA (12:45)
[2020-09-27] MEDS ORDERED: SODIUM CHLORIDE 0.9% 1,000 ML IV ONE (13:00)
[2020-09-27] MEDS ORDERED: MORPHINE SULFATE 4 MG/ML CPJ (NOT FOR IM USE) IV ONE (14:00)
[2020-09-27 14:33] LABS: BASOPHILS % 0.4 % (0.0-2.0); EOSINOPHILS % 0.5 % (0.0-5.0); HEMOGLOBIN. 13.5 g/dL (14.0-18.0); LYMPHOCYTES % 14.1 % (20.0-50.0); MEAN CORPUSCULAR HEMOGLOBIN 26.9 pg (28.0-32.0); MEAN CORPUSCULAR VOLUME 81.9 fL (80.0-94.0); MEAN PLATELET VOLUME 8.8 fl (7.4-10.4); MONOCYTES % 4.8 % (2.0-8.0); NEUTROPHILS % 80.2 % (40.0-76.0); PLATELET 162 x1000/uL (130-400); RED BLOOD CELL COUNT 5.01 mill/uL (4.7-6.1)
[2020-09-27 14:37] LABS: CHLORIDE 107 mEq/L (98-107)
[2020-09-27 14:41] LABS: ETHANOL BLOOD < 10 mg/dL
[2020-09-27 14:44] LABS: PROTHROMBIN TIME 11.1 sec (9.6-11.0)
[2020-09-27 17:46] VITALS: BP 146/88
== END 2020-09-27 17:47 | disposition home or self-care (01) ==
LOC: ER 12:31
DX: R10.11 Right upper quadrant pain (principal); F10.229 Alcohol dependence with intoxication, unspecified; F17.290 Nicotine dependence, other tobacco product, uncomplicated; Y90.0 Blood alcohol level of less than 20 mg/100 ml; Z79.899 Other long term (current) drug therapy
CPT/HCPCS: 36415; 71045; 76700; 80053; 80320; 83605; 83690; 84484; 85025; 85610; 86850; 86900; 86901; 93005; 96361; 96374; 99285; J2270; J7030; Q0162; Z7610; G0480

== ENCOUNTER 2020-09-30 12:50 | Emergency (ER) | payer MEDICARE ==
[~2020-09-30] VITALS: Ht 172.7 cm; Wt 78.0 kg
[2020-09-30] MEDS ORDERED: ONDANSETRON HCL 4MG/2ML INJ IV STA (13:13)
[2020-09-30] MEDS ORDERED: MORPHINE SULFATE 4 MG/ML CPJ (NOT FOR IM USE) IV STA (13:13)
[2020-09-30] MEDS ORDERED: SODIUM CHLORIDE 0.9% 1,000 ML IV ONE (13:15)
[2020-09-30] MEDS ORDERED: LEVETIRACETAM 500MG PREMIX 100 ML IV ONE (13:15)
[2020-09-30 13:29] VITALS: BP 135/79
[2020-09-30 13:47] LABS: BASOPHILS % 0.4 % (0.0-2.0); EOSINOPHILS % 0.7 % (0.0-5.0); HEMATOCRIT. 43.3 % (42.0-52.0); HEMOGLOBIN. 14.3 g/dL (14.0-18.0); LYMPHOCYTES % 17.6 % (20.0-50.0); MEAN CORPUSCULAR HEMOGLOBIN 26.7 pg (28.0-32.0); MEAN CORPUSCULAR VOLUME 81.1 fL (80.0-94.0); MEAN PLATELET VOLUME 8.6 fl (7.4-10.4); MONOCYTES % 6.1 % (2.0-8.0); NEUTROPHILS % 75.2 % (40.0-76.0); PLATELET 183 x1000/uL (130-400); RED BLOOD CELL COUNT 5.34 mill/uL (4.7-6.1); RED CELL DISTRIBUTION WIDTH 15.3 % (11.6-14.6)
[2020-09-30 13:51] LABS: CHLORIDE 103 mEq/L (98-107)
[2020-09-30 13:54] LABS: ETHANOL BLOOD < 10 mg/dL
[2020-09-30] MEDS ORDERED: IBUP-2028 MT (16:38)
[2020-09-30] MEDS ORDERED: LEVE1000 MT (16:38)
== END 2020-09-30 17:10 | disposition home or self-care (01) ==
LOC: ER 13:03
DX: R10.13 Epigastric pain (principal); R56.9 Unspecified convulsions; Z79.899 Other long term (current) drug therapy
CPT/HCPCS: 36415; 71045; 74176; 80053; 80320; 83690; 85025; 93005; 96365; 96375; 99285; J1953; J2270; J2405; J7030; Z7610; G0480

== ENCOUNTER 2020-10-05 13:57 | Emergency (ER) | payer MEDICARE ==
[~2020-10-05] VITALS: Ht 172.7 cm; Wt 88.0 kg
[~2020-10-05 13:57] MED LIST changes: +IBUP-2028 MT; +LEVE1000 MT
[2020-10-05 14:45] LABS: BASOPHILS % 0.9 % (0.0-2.0); EOSINOPHILS % 0.4 % (0.0-5.0); HEMATOCRIT. 43.1 % (42.0-52.0); HEMOGLOBIN. 14.5 g/dL (14.0-18.0); LYMPHOCYTES % 17.5 % (20.0-50.0); MEAN CORPUSCULAR VOLUME 80.2 fL (80.0-94.0); MONOCYTES % 6.9 % (2.0-8.0); NEUTROPHILS % 74.3 % (40.0-76.0); PLATELET 194 x1000/uL (130-400); RED BLOOD CELL COUNT 5.38 mill/uL (4.7-6.1); RED CELL DISTRIBUTION WIDTH 15.8 % (11.6-14.6)
[2020-10-05] MEDS ORDERED: ONDANSETRON HCL 4MG/2ML INJ IV ONE (14:45)
[2020-10-05] MEDS ORDERED: FAMOTIDINE 20MG TABLET PO SCH (14:45)
[2020-10-05 14:52] LABS: CHLORIDE 102 mEq/L (98-107)
[2020-10-05 14:58] LABS: ETHANOL BLOOD < 10 mg/dL
[2020-10-05] MEDS ORDERED: ONDANSETRON 4MG ODT PO ONE (15:00)
[2020-10-05 17:04] VITALS: BP 140/90
[2020-10-05] MEDS ORDERED: OMEP20TA2 MT (18:10)
== END 2020-10-05 18:19 | disposition home or self-care (01) ==
LOC: ER 13:57
DX: R10.13 Epigastric pain (principal); R11.0 Nausea; R45.851 Suicidal ideations; R56.9 Unspecified convulsions
CPT/HCPCS: 36415; 80053; 80307; 80320; 80329; 83690; 85025; 99284; Q0162; G0480

== ENCOUNTER 2020-10-08 12:06 | Emergency (ER) | payer MEDICARE ==
[~2020-10-08] VITALS: Ht 172.7 cm; Wt 110.0 kg
[~2020-10-08 12:06] MED LIST changes: +OMEP20TA2 MT
[2020-10-08] MEDS ORDERED: FAMOTIDINE 20MG/2ML VIAL IV ONE (12:45)
[2020-10-08] MEDS ORDERED: ONDANSETRON HCL 4MG/2ML INJ IV ONE (12:45)
[2020-10-08] MEDS ORDERED: SODIUM CHLORIDE 0.9% 1,000 ML IV ONE (12:45)
[2020-10-08] MEDS ORDERED: PANTOPRAZOLE SODIUM 40 MG/VIAL IV ONE (12:45)
[2020-10-08 13:01] LABS: EOSINOPHILS % 0.7 % (0.0-5.0); HEMATOCRIT. 45.6 % (42.0-52.0); HEMOGLOBIN. 14.9 g/dL (14.0-18.0); LYMPHOCYTES % 16.8 % (20.0-50.0); MEAN CORPUSCULAR HEMOGLOBIN 26.5 pg (28.0-32.0); MEAN CORPUSCULAR VOLUME 81.4 fL (80.0-94.0); MEAN PLATELET VOLUME 8.1 fl (7.4-10.4); MONOCYTES % 6.8 % (2.0-8.0); NEUTROPHILS % 74.7 % (40.0-76.0); PLATELET 198 x1000/uL (130-400); RED CELL DISTRIBUTION WIDTH 15.9 % (11.6-14.6)
[2020-10-08 13:06] LABS: CHLORIDE 103 mEq/L (98-107)
[2020-10-08 13:10] LABS: ETHANOL BLOOD < 10 mg/dL
[2020-10-08 13:30] VITALS: BP 135/94
== END 2020-10-08 14:29 | disposition left against medical advice (07) ==
LOC: ER 12:15
DX: R56.9 Unspecified convulsions (principal); F17.200 Nicotine dependence, unspecified, uncomplicated
CPT/HCPCS: 36415; 80053; 80320; 83690; 85025; 93005; 96361; 96374; 96375; 99284; C9113; J2405; J3490; J7030; Z7610; G0480

== ENCOUNTER 2020-10-12 18:56 | Emergency (ER) | payer MEDICARE ==
[~2020-10-12] VITALS: Ht 172.7 cm; Wt 100.0 kg
[2020-10-12] MEDS ORDERED: HALOPERIDOL LACTATE 5MG/ML VIAL IM ONE ×2 (19:30→20:30)
[2020-10-12] MEDS ORDERED: LEVETIRACETAM 1000MG PREMIX 100 ML IV ONE (19:30)
[2020-10-12] MEDS ORDERED: FAMOTIDINE 20MG/2ML VIAL IV ONE (19:45)
[2020-10-12 20:19] LABS: BASOPHILS % 0.5 % (0.0-2.0); EOSINOPHILS % 1.4 % (0.0-5.0); HEMATOCRIT. 44.8 % (42.0-52.0); HEMOGLOBIN. 14.9 g/dL (14.0-18.0); LYMPHOCYTES % 39.6 % (20.0-50.0); MEAN CORPUSCULAR HEMOGLOBIN 27.5 pg (28.0-32.0); MONOCYTES % 8.3 % (2.0-8.0); NEUTROPHILS % 50.2 % (40.0-76.0); PLATELET 266 x1000/uL (130-400); RED CELL DISTRIBUTION WIDTH 16.2 % (11.6-14.6)
[2020-10-12 20:24] LABS: CHLORIDE 102 mEq/L (98-107)
[2020-10-12] MEDS ORDERED: MORPHINE SULFATE 2 MG/ML CPJ (NOT FOR IM USE) IV ONE (20:30)
[2020-10-12] MEDS ORDERED: METOCLOPRAMIDE HCL 10MG/2ML VIAL IV ONE (21:45)
[2020-10-12] MEDS ORDERED: KETOROLAC 15MG/ML VIAL IV ONE (21:45)
[2020-10-12] MEDS ORDERED: MAGNESIUM/ALUMINUM HYDROXIDE/SIMETHICONE 30ML UDC PO ONE (22:00)
[2020-10-13] MEDS ORDERED: ONDA4TAB5 MT (00:35)
[2020-10-13 01:15] VITALS: BP 163/84
[2020-10-14] MEDS ORDERED: METO-293 MT (11:43)
[2020-10-14] MEDS ORDERED: ONDA4TAB11 PO (11:43)
== END 2020-10-13 01:15 | disposition home or self-care (01) ==
LOC: ER 18:56
DX: R10.9 Unspecified abdominal pain (principal); G89.29 Other chronic pain; E11.9 Type 2 diabetes mellitus without complications; R56.9 Unspecified convulsions
CPT/HCPCS: 36415; 80053; 83690; 85025; 96372; 96374; 96375; 99285; J1630; J1885; J1953; J2270; J2765; J3490; Z7610

== ENCOUNTER 2020-10-14 08:46 | Emergency (ER) | payer MEDICARE ==
[~2020-10-14] VITALS: Ht 172.7 cm; Wt 100.0 kg
[2020-10-14 09:29] LABS: BASOPHILS % 0.2 % (0.0-2.0); EOSINOPHILS % 0.3 % (0.0-5.0); HEMATOCRIT. 48.1 % (42.0-52.0); HEMOGLOBIN. 15.6 g/dL (14.0-18.0); LYMPHOCYTES % 16.8 % (20.0-50.0); MEAN CORPUSCULAR HEMOGLOBIN 26.6 pg (28.0-32.0); MEAN CORPUSCULAR VOLUME 81.9 fL (80.0-94.0); MEAN PLATELET VOLUME 8.3 fl (7.4-10.4); MONOCYTES % 5.6 % (2.0-8.0); NEUTROPHILS % 77.1 % (40.0-76.0); PLATELET 260 x1000/uL (130-400); RED BLOOD CELL COUNT 5.87 mill/uL (4.7-6.1); RED CELL DISTRIBUTION WIDTH 16.4 % (11.6-14.6)
[2020-10-14] MEDS ORDERED: SODIUM CHLORIDE 0.9% 1,000 ML IV ONE (09:30)
[2020-10-14] MEDS ORDERED: HALOPERIDOL LACTATE 5MG/ML VIAL IM SCH (09:30)
[2020-10-14] MEDS ORDERED: HYDROMORPHONE HCL/PF 2MG/ML CPJ IV PRN (09:30)
[2020-10-14 09:33] LABS: CHLORIDE 99 mEq/L (98-107)
[2020-10-14 09:42] LABS: INR 1.1; PROTHROMBIN TIME 11.6 sec (9.6-11.0)
[2020-10-14] MEDS ORDERED: METO-293 MT (11:43)
[2020-10-14] MEDS ORDERED: ONDA4TAB11 PO (11:43)
[2020-10-14 11:56] VITALS: BP 112/68
== END 2020-10-14 11:57 | disposition home or self-care (01) ==
LOC: ER 08:46
DX: E11.43 Type 2 diabetes mellitus with diabetic autonomic (poly)neuropathy (principal); K31.84 Gastroparesis; R11.2 Nausea with vomiting, unspecified; Z79.899 Other long term (current) drug therapy; Z98.890 Other specified postprocedural states; Z86.59 Personal history of other mental and behavioral disorders
CPT/HCPCS: 36415; 74018; 80053; 83690; 85025; 85610; 93005; 96361; 96372; 96374; 99285; J1630

== ENCOUNTER 2020-10-14 18:03 | Emergency (ER) | payer MEDICARE ==
[~2020-10-14] VITALS: Ht 172.7 cm; Wt 100.0 kg
[~2020-10-14 18:03] MED LIST changes: +METO-293 MT; +ONDA4TAB11 PO
[2020-10-14] MEDS ORDERED: ONDANSETRON HCL 4MG/2ML INJ IV ONE (19:00)
[2020-10-14] MEDS ORDERED: FENTANYL CITRATE/PF 50MCG/ML 2ML VIAL IV ONE (19:00)
[2020-10-14 19:14] LABS: BASOPHILS % 0.4 % (0.0-2.0); EOSINOPHILS % 0.1 % (0.0-5.0); HEMATOCRIT. 46.3 % (42.0-52.0); HEMOGLOBIN. 15.5 g/dL (14.0-18.0); LYMPHOCYTES % 17.7 % (20.0-50.0); MEAN CORPUSCULAR HEMOGLOBIN 27.3 pg (28.0-32.0); MEAN CORPUSCULAR VOLUME 81.5 fL (80.0-94.0); MEAN PLATELET VOLUME 8.7 fl (7.4-10.4); MONOCYTES % 6.9 % (2.0-8.0); NEUTROPHILS % 74.9 % (40.0-76.0); PLATELET 268 x1000/uL (130-400); RED BLOOD CELL COUNT 5.68 mill/uL (4.7-6.1); RED CELL DISTRIBUTION WIDTH 15.9 % (11.6-14.6)
[2020-10-14 19:22] LABS: CHLORIDE 99 mEq/L (98-107)
[2020-10-14 19:26] LABS: ETHANOL BLOOD < 10 mg/dL
[2020-10-14 19:40] LABS: INR 1.1; PROTHROMBIN TIME 11.4 sec (9.6-11.0)
[2020-10-14] MEDS ORDERED: SODIUM CHLORIDE 0.9% 1,000 ML IV ONE (19:45)
[2020-10-14] MEDS ORDERED: FAMOTIDINE 20MG TABLET PO ONE (20:45)
[2020-10-14 22:09] VITALS: BP 164/88
[2020-10-14 22:52] LABS: CLARITY URINE CLEAR (CLEAR); COLOR URINE YELLOW (YELLOW); KETONES URINE 1+ (NEGATIVE); LEUKOCYTE ESTERASE URINE NEGATIVE (NEGATIVE); NITRITE URINE NEGATIVE (NEGATIVE); OCCULT BLOOD URINE NEGATIVE (NEGATIVE); PH URINE 7.5 (4.5-8.0); PROTEIN URINE TRACE (NEGATIVE); SPECIFIC GRAVITY URINE 1.045 (1.005-1.030)
[2020-10-14 23:06] LABS: *AMPHETAMINES SCREEN URINE NEGATIVE (NEGATIVE); *BARBITURATES SCREEN URINE NEGATIVE (NEGATIVE)
[2020-10-14 23:07] LABS: *BENZODIAZEPINES SCREEN URINE NEGATIVE (NEGATIVE); *COCAINE SCREEN URINE NEGATIVE (NEGATIVE); METHADONE URINE SCREEN NEGATIVE (NEGATIVE); OPIATES URINE SCREEN PRESUMTIVE POSITIVE (NEGATIVE); PHENCYCLIDINE URINE SCREEN NEGATIVE (NEGATIVE)
[2020-10-14 23:08] LABS: CANNABINOID URINE SCREEN PRESUMTIVE POSITIVE (NEGATIVE)
== END 2020-10-14 23:00 | disposition home or self-care (01) ==
LOC: ER 18:03
DX: R10.84 Generalized abdominal pain (principal); R11.2 Nausea with vomiting, unspecified; E11.9 Type 2 diabetes mellitus without complications; Z79.899 Other long term (current) drug therapy
CPT/HCPCS: 36415; 71045; 74174; 80053; 80305; 80320; 81003; 83605; 83690; 84484; 85025; 85610; 86850; 86900; 86901; 93005; 96361; 96374; 96375; 99285; J2405; J3010; J7030; Z7610; G0480

== ENCOUNTER 2020-10-21 03:09 | Emergency (ER) | payer MEDICARE ==
[~2020-10-21] VITALS: Ht 167.6 cm; Wt 77.0 kg
[2020-10-21] MEDS ORDERED: METOCLOPRAMIDE HCL 10MG/2ML VIAL IV STA (03:32)
[2020-10-21] MEDS ORDERED: VISCOUS LIDOCAINE 2% 15 ML UDC PO STA (03:32)
[2020-10-21] MEDS ORDERED: KETOROLAC 30MG/ML VIAL IV STA (03:32)
[2020-10-21] MEDS ORDERED: MAGNESIUM/ALUMINUM HYDROXIDE/SIMETHICONE 30ML UDC PO STA (03:32)
[2020-10-21 04:12] LABS: BASOPHILS % 0.2 % (0.0-2.0); EOSINOPHILS % 0.3 % (0.0-5.0); HEMATOCRIT. 40.8 % (42.0-52.0); HEMOGLOBIN. 13.2 g/dL (14.0-18.0); LYMPHOCYTES % 9.1 % (20.0-50.0); MEAN CORPUSCULAR HEMOGLOBIN 26.5 pg (28.0-32.0); MEAN CORPUSCULAR VOLUME 81.8 fL (80.0-94.0); MEAN PLATELET VOLUME 8.4 fl (7.4-10.4); MONOCYTES % 5.5 % (2.0-8.0); NEUTROPHILS % 84.9 % (40.0-76.0); PLATELET 181 x1000/uL (130-400); RED BLOOD CELL COUNT 4.99 mill/uL (4.7-6.1); RED CELL DISTRIBUTION WIDTH 16.3 % (11.6-14.6)
[2020-10-21 04:22] LABS: CHLORIDE 101 mEq/L (98-107)
[2020-10-21 04:28] LABS: ETHANOL BLOOD < 10 mg/dL
[2020-10-21 05:13] LABS: CLARITY URINE CLEAR (CLEAR); COLOR URINE YELLOW (YELLOW); KETONES URINE NEGATIVE (NEGATIVE); LEUKOCYTE ESTERASE URINE NEGATIVE (NEGATIVE); NITRITE URINE NEGATIVE (NEGATIVE); OCCULT BLOOD URINE NEGATIVE (NEGATIVE); PH URINE 6.5 (4.5-8.0); PROTEIN URINE TRACE (NEGATIVE)
[2020-10-21 05:34] LABS: *AMPHETAMINES SCREEN URINE NEGATIVE (NEGATIVE); *BARBITURATES SCREEN URINE NEGATIVE (NEGATIVE); *BENZODIAZEPINES SCREEN URINE NEGATIVE (NEGATIVE); *COCAINE SCREEN URINE NEGATIVE (NEGATIVE); METHADONE URINE SCREEN NEGATIVE (NEGATIVE); OPIATES URINE SCREEN NEGATIVE (NEGATIVE)
[2020-10-21 05:35] LABS: CANNABINOID URINE SCREEN PRESUMTIVE POSITIVE (NEGATIVE); PHENCYCLIDINE URINE SCREEN NEGATIVE (NEGATIVE)
[2020-10-21 06:09] VITALS: BP 132/95
== END 2020-10-21 06:10 | disposition home or self-care (01) ==
LOC: ER 03:09
DX: K86.1 Other chronic pancreatitis (principal); F12.10 Cannabis abuse, uncomplicated; Z79.899 Other long term (current) drug therapy; Z86.59 Personal history of other mental and behavioral disorders
CPT/HCPCS: 36415; 80053; 80305; 80320; 81003; 83690; 85025; 93005; 96374; 96375; 99284; J1885; J2765; Z7610; G0480

== ENCOUNTER 2020-12-20 08:02 | Inpatient (IN) | payer MEDICARE ==
[~2020-12-20] VITALS: Ht 172.7 cm; Wt 81.0 kg
[2020-12-20] MEDS ORDERED: LEVETIRACETAM 1000MG PREMIX 100 ML IV ONE (08:15)
[2020-12-20 08:42] LABS: BASOPHILS % 0.6 % (0.0-2.0); EOSINOPHILS % 0.8 % (0.0-5.0); HEMATOCRIT. 44.8 % (42.0-52.0); HEMOGLOBIN. 14.9 g/dL (14.0-18.0); LYMPHOCYTES % 14.9 % (20.0-50.0); MEAN CORPUSCULAR HEMOGLOBIN 27.4 pg (28.0-32.0); MEAN CORPUSCULAR VOLUME 82.6 fL (80.0-94.0); MEAN PLATELET VOLUME 9.2 fl (7.4-10.4); MONOCYTES % 6.1 % (2.0-8.0); NEUTROPHILS % 77.6 % (40.0-76.0); PLATELET 185 x1000/uL (130-400); RED BLOOD CELL COUNT 5.43 mill/uL (4.7-6.1)
[2020-12-20 08:43] LABS: CHLORIDE 105 mEq/L (98-107)
[2020-12-20 08:47] LABS: ETHANOL BLOOD < 10 mg/dL
[2020-12-20] MEDS ORDERED: LORAZEPAM 2MG/ML CPJ IM STA (10:35)
[2020-12-20 16:03] VITALS: BP 125/80
[2020-12-20 16:04] LABS: CLARITY URINE CLEAR (CLEAR); COLOR URINE YELLOW (YELLOW); KETONES URINE TRACE (NEGATIVE); LEUKOCYTE ESTERASE URINE NEGATIVE (NEGATIVE); NITRITE URINE NEGATIVE (NEGATIVE); OCCULT BLOOD URINE NEGATIVE (NEGATIVE); PROTEIN URINE 1+ (NEGATIVE); SPECIFIC GRAVITY URINE 1.027 (1.005-1.030)
[2020-12-20 16:13] LABS: *BENZODIAZEPINES SCREEN URINE NEGATIVE (NEGATIVE); *COCAINE SCREEN URINE NEGATIVE (NEGATIVE); METHADONE URINE SCREEN NEGATIVE (NEGATIVE); OPIATES URINE SCREEN NEGATIVE (NEGATIVE)
[2020-12-20 16:14] LABS: *AMPHETAMINES SCREEN URINE NEGATIVE (NEGATIVE); *BARBITURATES SCREEN URINE NEGATIVE (NEGATIVE); CANNABINOID URINE SCREEN PRESUMTIVE POSITIVE (NEGATIVE); PHENCYCLIDINE URINE SCREEN NEGATIVE (NEGATIVE)
== END 2020-12-21 00:15 | disposition left against medical advice (07) | DRG 53 ==
LOC: ER 08:02 → 8WST 10:22 → EDBEDREQ 10:24 → EDBEDREQTM 10:24 → ENRESERV 19:07
PROVIDERS: ADMIT Internal Medicine; ATTEND Internal Medicine
DX: R56.9 Unspecified convulsions (principal); Z53.29 Procedure and treatment not carried out because of patient's decision for other reasons; Z79.1 Long term (current) use of non-steroidal anti-inflammatories (NSAID); Z79.899 Other long term (current) drug therapy
CPT/HCPCS: 36415; 71045; 80053; 80305; 80320; 81003; 84484; 85025; 99285; J1953; J2060; G0480

== ENCOUNTER 2022-02-02 09:52 | Emergency (ER) | payer MEDICAID ==
[~2022-02-02] VITALS: Ht 167.6 cm; Wt 106.0 kg
[~2022-02-02 09:52] MED LIST changes: -OMEP20TA2 MT; +OMEP20TA23 MT
[2022-02-02] MEDS ORDERED: ONDANSETRON HCL 4MG/2ML INJ IV STA (10:28)
[2022-02-02] MEDS ORDERED: KETOROLAC 30MG/ML VIAL IV ONE (10:30)
[2022-02-02] MEDS ORDERED: SODIUM CHLORIDE 0.9% 1,000 ML IV ONE ×2 (10:30→14:00)
[2022-02-02 10:31] LABS: BASOPHILS % 0.6 % (0.0-2.0); HEMATOCRIT. 43.7 % (42.0-52.0); HEMOGLOBIN. 14.5 g/dL (14.0-18.0); LYMPHOCYTES % 22.5 % (20.0-50.0); MEAN CORPUSCULAR HEMOGLOBIN 27.3 pg (28.0-32.0); MEAN PLATELET VOLUME 8.5 fl (7.4-10.4); MONOCYTES % 6.1 % (2.0-8.0); NEUTROPHILS % 68.8 % (40.0-76.0); PLATELET 205 x1000/uL (130-400); RED BLOOD CELL COUNT 5.33 mill/uL (4.7-6.1); RED CELL DISTRIBUTION WIDTH 15.8 % (11.6-14.6)
[2022-02-02 10:36] LABS: CHLORIDE 105 mEq/L (98-107)
[2022-02-02 10:43] LABS: ETHANOL BLOOD < 10 mg/dL
[2022-02-02] MEDS ORDERED: MORPHINE SULFATE 2 MG/ML CPJ (NOT FOR IM USE) IV ONE (11:30)
[2022-02-02 15:00] VITALS: BP 112/64
[2022-02-02] MEDS ORDERED: MORPHINE SULFATE 2 MG/ML CPJ (NOT FOR IM USE) IV PRN (16:45)
== END 2022-02-02 17:15 | disposition left against medical advice (07) ==
LOC: ER 10:14 → EDBEDREQ 14:48 → CANBEDREQ 17:13 → ER 17:15
DX: K85.90 Acute pancreatitis without necrosis or infection, unspecified (principal); Z79.899 Other long term (current) drug therapy; Z98.890 Other specified postprocedural states
CPT/HCPCS: 36415; 80053; 80320; 83690; 85025; 96361; 96374; 96375; 99284; J1885; J2270; J2405; J7030; G0480

== ENCOUNTER 2023-04-30 11:07 | Inpatient (IN) | payer MEDICAID ==
[~2023-04-30] VITALS: Ht 167.6 cm; Wt 99.8 kg
[~2023-04-30 11:07] MED LIST changes: +AMLO10TA80 MT; +ASPI-1160 PO; +ATOR-2 PO; +DICY20TA2 MT; +DIVA500T3 MT; +ESCI10TA MT; +FAMO-135 MT; +FAMO20TA8 PO; +HYDR25TA PO; +KEPP250 MT; +LEVE10006 PO; +LEVE250T2 PO; +MAG355OR21 MT; +METO10TA3 PO; +NICO-789 TP; +ONDA4TAB50 MT; +ONDA4TAB50 PO; +ONDA8TAB13 PO; +PANT40TA51 PO; +PROT40 MT; +TOPUD PO
[2023-04-30 12:01] LABS: BASOPHILS % 0.5 % (0.0-2.0); EOSINOPHILS % 0.9 % (0.0-5.0); HEMATOCRIT. 41.9 % (42.0-52.0); HEMOGLOBIN. 13.8 g/dL (14.0-18.0); LYMPHOCYTES % 13.8 % (20.0-50.0); MEAN CORPUSCULAR VOLUME 84.9 fL (80.0-94.0); MEAN PLATELET VOLUME 8.3 fl (7.4-10.4); MONOCYTES % 5.4 % (2.0-8.0); NEUTROPHILS % 79.4 % (40.0-76.0); PLATELET 190 x1000/uL (130-400); RED BLOOD CELL COUNT 4.94 mill/uL (4.7-6.1); RED CELL DISTRIBUTION WIDTH 14.7 % (11.6-14.6); WHITE BLOOD COUNT 8.8 x1000/uL (4.5-11.0)
[2023-04-30 12:04] LABS: CHLORIDE 104 mEq/L (98-107); INDEX HEMOLYSI 1 (1-3); INDEX ICTERIC 1 (1-4); INDEX LIPEMIC 1 (1-3); POTASSIUM 3.9 mEq/L (3.5-5.1); SODIUM 137 mEq/L (136-145)
[2023-04-30 12:11] LABS: ALANINE AMINOTRANSFERASE 28 IU/L (13-61); ALBUMIN 3.6 g/dL (3.4-5.0); ASPARTATE AMINOTRANSFERASE 18 IU/L (15-37); BILIRUBIN TOTAL 0.4 mg/dL (0.1-1.0); CALCIUM 8.9 mg/dL (8.5-10.1); CARBON DIOXIDE 26 mEq/L (21-32); CREATININE 0.8 mg/dL (0.6-1.3); ETHANOL BLOOD < 10 mg/dL (<10); GLUCOSE 184 mg/dL (70-105); PROTEIN TOTAL 7.4 g/dL (6.0-8.3); UREA NITROGEN BLOOD 14 mg/dL (7-21)
[2023-04-30] MEDS ORDERED: KETOROLAC 30MG/ML VIAL IV ONE (12:15)
[2023-04-30] MEDS ORDERED: ONDANSETRON HCL 4MG/2ML INJ IV ONE (12:15)
[2023-04-30] MEDS ORDERED: SODIUM CHLORIDE 0.9% 1,000 ML IV ONE (12:15)
[2023-04-30] MEDS ORDERED: ONDANSETRON HCL 4MG/2ML INJ ONE (23:28)
[2023-04-30] MEDS ORDERED: MORPHINE SULFATE 2 MG/ML CPJ (NOT FOR IM USE) IV ONE (23:29)
[2023-04-30] MEDS ORDERED: HYDRALAZINE 20MG/ML VIAL ONE ×2 (23:31→23:41)
[2023-04-30] MEDS ORDERED: MORPHINE SULFATE 2 MG/ML CPJ (NOT FOR IM USE) IV PRN (23:45)
[2023-04-30] MEDS ORDERED: HYDRALAZINE 20MG/ML VIAL IV PRN (23:45)
[2023-04-30] MEDS ORDERED: ONDANSETRON HCL 4MG/2ML INJ IV PRN (23:45)
[2023-05-01 02:40] VITALS: BP 198/112; PULSE 94; RESP 16; TEMP 97.7
[2023-05-01] MEDS ORDERED: LORAZEPAM 2MG/ML CPJ IV PRN (03:15)
[2023-05-01] MEDS ORDERED: LEVETIRACETAM 1,000 MG in SODIUM CHLORIDE 0.9% 100 ML IV SCH (03:15)
[2023-05-01] MEDS ORDERED: ONDANSETRON HCL 4MG/2ML INJ IV PRN ×2 (03:15→21:00)
[2023-05-01] MEDS ORDERED: HYDRALAZINE 20MG/ML VIAL IV PRN ×2 (03:15→17:15)
[2023-05-01] MEDS ORDERED: HYDRALAZINE 10 MG in SODIUM CHLORIDE 0.9% 49.5 ML IV PRN (04:00)
[2023-05-01] MEDS: MORPHINE SULFATE 2 MG/ML CPJ (NOT FOR IM USE) IV PRN ×3 (04:15→21:21)
[2023-05-01] MEDS: FOLIC ACID 1 MG, THIAMINE HCL 100 MG, MVI, ADULT NO.1 10 ML in DEXTROSE 5% WATER 1,000 ML IV NR ×8 (04:39→23:35)
[2023-05-01] MEDS ORDERED: DEXT 5%/0.45% NACL KCL 20MEQ/L 1,000 ML IV SCH (06:00)
[2023-05-01] MEDS ORDERED: LEVETIRACETAM 1000MG PREMIX 100 ML IV SCH (06:00)
[2023-05-01 08:00] VITALS: BP 155/88; PULSE 103; RESP 20; TEMP 100
[2023-05-01 08:58] LABS: BASOPHILS % 0.3 % (0.0-2.0); EOSINOPHILS % 0.6 % (0.0-5.0); HEMATOCRIT. 42.5 % (42.0-52.0); HEMOGLOBIN. 13.9 g/dL (14.0-18.0); LYMPHOCYTES % 19.4 % (20.0-50.0); MEAN CORPUSCULAR HEMOGLOBIN 27.5 pg (28.0-32.0); MEAN CORPUSCULAR HGB CONC 32.6 g/dL (31.0-37.0); MEAN CORPUSCULAR VOLUME 84.4 fL (80.0-94.0); MEAN PLATELET VOLUME 8.5 fl (7.4-10.4); MONOCYTES % 6.1 % (2.0-8.0); NEUTROPHILS % 73.6 % (40.0-76.0); PLATELET 222 x1000/uL (130-400); RED BLOOD CELL COUNT 5.04 mill/uL (4.7-6.1); RED CELL DISTRIBUTION WIDTH 14.3 % (11.6-14.6); WHITE BLOOD COUNT 9.4 x1000/uL (4.5-11.0)
[2023-05-01 09:13] LABS: CHLORIDE 102 mEq/L (98-107); INDEX HEMOLYSI 1 (1-3); INDEX ICTERIC 1 (1-4); INDEX LIPEMIC 1 (1-3); POTASSIUM 3.9 mEq/L (3.5-5.1); SODIUM 133 mEq/L (136-145)
[2023-05-01 09:20] LABS: ALANINE AMINOTRANSFERASE 37 IU/L (13-61); ALBUMIN 3.6 g/dL (3.4-5.0); AMYLASE 152 IU/L (25-115); ASPARTATE AMINOTRANSFERASE 20 IU/L (15-37); BILIRUBIN TOTAL 0.7 mg/dL (0.1-1.0); CALCIUM 8.8 mg/dL (8.5-10.1); CARBON DIOXIDE 24 mEq/L (21-32); CREATININE 0.7 mg/dL (0.6-1.3); GLUCOSE 162 mg/dL (70-105); PROTEIN TOTAL 7.4 g/dL (6.0-8.3); UREA NITROGEN BLOOD 14 mg/dL (7-21)
[2023-05-01] MEDS ORDERED: NALOXONE HCL 0.4MG/ML VIAL IV PRN (10:00)
[2023-05-01 10:30] VITALS: BP 186/101; PULSE 124; RESP 18; TEMP 97
[2023-05-01 10:50] LABS: BG BASE EXCESS 0.6 mmol/L (-2.0-2.0); BG CARBOXYHEMOGLOBIN 0.5 % (0.5-1.5); BG DEOXYHEMOGLOBIN 3.5 % (0.0-5.0); BG FRACTION INSPIRED OXYGEN 28; BG METHEMOGLOBIN 0.2 % (0.0-1.5); BG OXYGEN SATURATION 96.5 % (92.0-98.5); BG OXYHEMOGLOBIN 95.8 % (94.0-97.0); BG PCO2 34.8 mmHg (35.0-45.0); BG PH 7.456 (7.350-7.450); BG PO2 83.6 mmHg (75.0-100.0); BG SAMPLE SITE RIGHT RADIAL; BG VENT MODE NASAL CANNULA
[2023-05-01 12:00] VITALS: BP 165/105; PULSE 97; RESP 18; TEMP 97.7
[2023-05-01 16:00] VITALS: BP_SYST 172; BP_SYST 174; BP_DIAS 114; BP_DIAS 78; PULSE 88; PULSE 99; RESP 18; TEMP 97.5; TEMP 98.1
[2023-05-01 20:00] VITALS: BP 160/93; PULSE 87; RESP 18; TEMP 99.3
[2023-05-01] MEDS: THIAMINE HCL 100MG TABLET PO SCH (21:00)
[2023-05-01] MEDS ORDERED: ENOXAPARIN 40MG/0.4ML SYR SUBCUT SCH (21:21)
[2023-05-01] MEDS: LEVETIRACETAM 1,000 MG in SODIUM CHLORIDE 0.9% 100 ML IV SCH (21:46)
[2023-05-01 23:49] LABS: CLARITY URINE CLEAR (CLEAR); COLOR URINE YELLOW (YELLOW); GLUCOSE URINE NEGATIVE (NEGATIVE); KETONES URINE TRACE (NEGATIVE); LEUKOCYTE ESTERASE URINE NEGATIVE (NEGATIVE); NITRITE URINE NEGATIVE (NEGATIVE); OCCULT BLOOD URINE NEGATIVE (NEGATIVE); PROTEIN URINE 3+ (NEGATIVE); SPECIFIC GRAVITY URINE 1.016 (1.005-1.030); UROBILINOGEN URINE 0.2 E.U./dL (0.2-1.0)
[2023-05-01 23:52] LABS: BACTERIA URINE NONE SEEN; SQUAMOUS EPITHELIAL CELL URINE NONE SEEN /lpf (RARE/1+); WBC URINE NONE SEEN /hpf (0-2); YEAST URINE NONE SEEN
[2023-05-02] VITALS: BP 139/88; PULSE 90; RESP 18; TEMP 98.4
[2023-05-02 04:00] VITALS: BP 138/91; PULSE 91; RESP 19; TEMP 97.9
[2023-05-02] MEDS: MORPHINE SULFATE 2 MG/ML CPJ (NOT FOR IM USE) IV PRN ×2 (05:08→10:19)
[2023-05-02 08:00] VITALS: BP 133/84; PULSE 79; RESP 20; TEMP 97.5
[2023-05-02] MEDS: PANTOPRAZOLE SODIUM 40 MG/VIAL IV SCH ×2 (09:00→10:06)
[2023-05-02] MEDS: THIAMINE HCL 100MG TABLET PO SCH (10:06)
[2023-05-02] MEDS: LEVETIRACETAM 1,000 MG in SODIUM CHLORIDE 0.9% 100 ML IV SCH (10:06)
[2023-05-02 12:00] VITALS: BP 127/91; PULSE 77; RESP 20; TEMP 97.6
[2023-05-02] MEDS ORDERED: KEPP500 MT (13:14)
[2023-05-02 14:23] VITALS: BP 127/91; PULSE 77; TEMP 97.6; O2SAT 97
== END 2023-05-02 15:00 | disposition home or self-care (01) | DRG 282 ==
LOC: ER 11:09 → MERGE 14:39 → 6EST 14:39 → 8WST 05-01 09:45
PROVIDERS: ADMIT Internal Medicine; ATTEND Internal Medicine
DX: K85.90 Acute pancreatitis without necrosis or infection, unspecified (principal); G93.41 Metabolic encephalopathy; G40.909 Epilepsy, unspecified, not intractable, without status epilepticus; F10.229 Alcohol dependence with intoxication, unspecified; Z91.199 Patient's noncompliance with other medical treatment and regimen due to unspecified reason; Z79.899 Other long term (current) drug therapy
CPT/HCPCS: 36415; 36600; 80053; 80320; 81003; 82150; 82375; 82805; 82962; 85025; 99285; C9113; J0360; J1650; J1885; J1953; J2060; J2270; J2405; J3411; J3490; J7030; J7050; J7070; G0480

== ENCOUNTER 2023-05-21 11:09 | Emergency (ER) | payer MEDICAID ==
[~2023-05-21] VITALS: Ht 172.7 cm; Wt 100.0 kg
[~2023-05-21 11:09] MED LIST changes: -KEPP250 MT; +KEPP500 MT; -ONDA4TAB50 MT
[2023-05-21 11:17] VITALS: BP 149/98; PULSE 100; RESP 16; TEMP 98.2; O2SAT 98
[2023-05-21 12:05] LABS: BASOPHILS % 0.4 % (0.0-2.0); EOSINOPHILS % 0.6 % (0.0-5.0); HEMATOCRIT. 42.1 % (42.0-52.0); HEMOGLOBIN. 13.8 g/dL (14.0-18.0); LYMPHOCYTES % 12.5 % (20.0-50.0); MEAN CORPUSCULAR HEMOGLOBIN 27.5 pg (28.0-32.0); MEAN CORPUSCULAR HGB CONC 32.7 g/dL (31.0-37.0); MEAN PLATELET VOLUME 8.4 fl (7.4-10.4); MONOCYTES % 5.6 % (2.0-8.0); NEUTROPHILS % 80.9 % (40.0-76.0); PLATELET 213 x1000/uL (130-400); RED BLOOD CELL COUNT 5.01 mill/uL (4.7-6.1); RED CELL DISTRIBUTION WIDTH 14.4 % (11.6-14.6); WHITE BLOOD COUNT 9.6 x1000/uL (4.5-11.0)
[2023-05-21 12:11] LABS: ALANINE AMINOTRANSFERASE 37 IU/L (10-49); ALBUMIN 4.4 g/dL (3.2-4.8); ASPARTATE AMINOTRANSFERASE 26 IU/L (<34); BILIRUBIN TOTAL 0.4 mg/dL (0.1-1.0); CALCIUM 9.7 mg/dL (8.7-10.4); CARBON DIOXIDE 27 mEq/L (21-32); CHLORIDE 102 mEq/L (98-107); CREATININE 0.8 mg/dL (0.6-1.3); GLUCOSE 185 mg/dL (70-105); POTASSIUM 4.2 mEq/L (3.5-5.1); SODIUM 136 mEq/L (136-145); UREA NITROGEN BLOOD 11 mg/dL (9-23)
[2023-05-21 12:21] LABS: ETHANOL BLOOD < 10 mg/dL (<10)
== END 2023-05-21 15:57 | disposition left against medical advice (07) ==
LOC: ER 11:09
DX: R10.9 Unspecified abdominal pain (principal); Z53.21 Procedure and treatment not carried out due to patient leaving prior to being seen by health care provider
CPT/HCPCS: 80053; 80320; 83690; 85025; 36415; 99281; Z7610; G0480

== ENCOUNTER 2023-05-24 09:44 | Emergency (ER) | payer MEDICAID ==
[~2023-05-24] VITALS: Ht 170.2 cm; Wt 79.0 kg
[2023-05-24 10:00] VITALS: O2SAT 98
[2023-05-24] MEDS ORDERED: ACETAMINOPHEN 325MG TABLET PO STA (11:57)
[2023-05-24] MEDS ORDERED: ONDANSETRON 4MG ODT PO STA (11:57)
[2023-05-24] MEDS ORDERED: FAMOTIDINE 20MG TABLET PO ONE (12:00)
[2023-05-24 13:22] LABS: BASOPHILS % 0.4 % (0.0-2.0); EOSINOPHILS % 0.9 % (0.0-5.0); HEMATOCRIT. 41.3 % (42.0-52.0); HEMOGLOBIN. 13.5 g/dL (14.0-18.0); LYMPHOCYTES % 21.6 % (20.0-50.0); MEAN CORPUSCULAR HEMOGLOBIN 27.2 pg (28.0-32.0); MEAN CORPUSCULAR HGB CONC 32.7 g/dL (31.0-37.0); MEAN CORPUSCULAR VOLUME 83.3 fL (80.0-94.0); MEAN PLATELET VOLUME 8.5 fl (7.4-10.4); MONOCYTES % 6.8 % (2.0-8.0); NEUTROPHILS % 70.3 % (40.0-76.0); PLATELET 218 x1000/uL (130-400); RED BLOOD CELL COUNT 4.96 mill/uL (4.7-6.1); RED CELL DISTRIBUTION WIDTH 14.2 % (11.6-14.6); WHITE BLOOD COUNT 7.6 x1000/uL (4.5-11.0)
[2023-05-24 13:34] LABS: PROTHROMBIN TIME 10.6 sec (9.6-11.0)
[2023-05-24 13:42] LABS: ALANINE AMINOTRANSFERASE 37 IU/L (10-49); ALBUMIN 4.3 g/dL (3.2-4.8); ASPARTATE AMINOTRANSFERASE 19 IU/L (<34); BILIRUBIN TOTAL 0.5 mg/dL (0.1-1.0); CALCIUM 9.3 mg/dL (8.7-10.4); CARBON DIOXIDE 23 mEq/L (21-32); CHLORIDE 105 mEq/L (98-107); CREATININE 0.9 mg/dL (0.6-1.3); GLUCOSE 196 mg/dL (70-105); POTASSIUM 4.1 mEq/L (3.5-5.1); PROTEIN TOTAL 7.4 g/dL (6.0-8.3); SODIUM 137 mEq/L (136-145); UREA NITROGEN BLOOD 14 mg/dL (9-23)
[2023-05-24 14:02] LABS: ETHANOL BLOOD < 10 mg/dL (<10)
[2023-05-24] MEDS ORDERED: FAMOTIDINE 20MG TABLET PO NR (15:15)
[2023-05-24] MEDS ORDERED: ACETAMINOPHEN 325MG TABLET PO NR (15:15)
[2023-05-24] MEDS ORDERED: ONDANSETRON 4MG ODT PO NR (15:15)
[2023-05-24 16:09] VITALS: BP 148/100; PULSE 79; RESP 14; TEMP 98.7
== END 2023-05-24 16:39 | disposition home or self-care (01) ==
LOC: ER 09:44
DX: R10.10 Upper abdominal pain, unspecified (principal); F12.10 Cannabis abuse, uncomplicated; Z79.899 Other long term (current) drug therapy; Z86.59 Personal history of other mental and behavioral disorders
CPT/HCPCS: 80053; 80320; 83690; 85025; 85610; 36415; 99284; Q0162; Z7610; G0480

== ENCOUNTER 2023-05-25 07:18 | Emergency (ER) | payer MEDICAID ==
[~2023-05-25] VITALS: Ht 170.2 cm; Wt 104.0 kg
[2023-05-25 07:36] VITALS: BP 184/86; PULSE 100; RESP 16; TEMP 98.3; O2SAT 98
[2023-05-25] MEDS ORDERED: ONDANSETRON HCL 4MG/2ML INJ IV STA (07:47)
[2023-05-25] MEDS ORDERED: SODIUM CHLORIDE 0.9% 1,000 ML IV ONE (08:00)
[2023-05-25 08:37] LABS: BASOPHILS % 0.3 % (0.0-2.0); EOSINOPHILS % 0.9 % (0.0-5.0); HEMOGLOBIN. 13.2 g/dL (14.0-18.0); LYMPHOCYTES % 12.2 % (20.0-50.0); MEAN CORPUSCULAR HEMOGLOBIN 27.6 pg (28.0-32.0); MEAN CORPUSCULAR HGB CONC 32.2 g/dL (31.0-37.0); MEAN CORPUSCULAR VOLUME 85.7 fL (80.0-94.0); MEAN PLATELET VOLUME 8.3 fl (7.4-10.4); MONOCYTES % 5.4 % (2.0-8.0); NEUTROPHILS % 81.2 % (40.0-76.0); PLATELET 215 x1000/uL (130-400); RED BLOOD CELL COUNT 4.79 mill/uL (4.7-6.1); RED CELL DISTRIBUTION WIDTH 14.5 % (11.6-14.6); WHITE BLOOD COUNT 8.7 x1000/uL (4.5-11.0)
[2023-05-25 08:48] LABS: ALANINE AMINOTRANSFERASE 36 IU/L (10-49); ALBUMIN 4.1 g/dL (3.2-4.8); ASPARTATE AMINOTRANSFERASE 22 IU/L (<34); BILIRUBIN TOTAL 0.8 mg/dL (0.1-1.0); CALCIUM 9.3 mg/dL (8.7-10.4); CARBON DIOXIDE 25 mEq/L (21-32); CHLORIDE 105 mEq/L (98-107); CREATININE 0.8 mg/dL (0.6-1.3); GLUCOSE 151 mg/dL (70-105); POTASSIUM 3.7 mEq/L (3.5-5.1); PROTEIN TOTAL 7.1 g/dL (6.0-8.3); SODIUM 137 mEq/L (136-145); UREA NITROGEN BLOOD 13 mg/dL (9-23)
[2023-05-25 08:57] LABS: ETHANOL BLOOD < 10 mg/dL (<10)
[2023-05-25 10:05] LABS: INR 1.1; PROTHROMBIN TIME 11.3 sec (9.6-11.0)
== END 2023-05-25 11:57 ==
LOC: ER 07:30
DX: R10.9 Unspecified abdominal pain (principal); F12.10 Cannabis abuse, uncomplicated; Z79.899 Other long term (current) drug therapy; Z86.59 Personal history of other mental and behavioral disorders
CPT/HCPCS: 80053; 80320; 83690; 85025; 85610; 36415; 71045; 99284; J7030; G0480

== ENCOUNTER 2023-05-31 10:11 | Emergency (ER) | payer MEDICAID ==
[~2023-05-31] VITALS: Ht 170.2 cm; Wt 91.0 kg
[2023-05-31 10:18] VITALS: BP 186/103; PULSE 104; RESP 16; TEMP 98.9; O2SAT 100
[2023-05-31] MEDS ORDERED: SODIUM CHLORIDE 0.9% 1,000 ML IV ONE (11:30)
[2023-05-31] MEDS ORDERED: ONDANSETRON HCL 4MG/2ML INJ IV STA (11:30)
[2023-05-31 12:55] LABS: BASOPHILS % 0.3 % (0.0-2.0); EOSINOPHILS % 0.3 % (0.0-5.0); HEMATOCRIT. 42.8 % (42.0-52.0); HEMOGLOBIN. 14.1 g/dL (14.0-18.0); LYMPHOCYTES % 11.3 % (20.0-50.0); MEAN CORPUSCULAR HEMOGLOBIN 27.7 pg (28.0-32.0); MEAN PLATELET VOLUME 8.8 fl (7.4-10.4); NEUTROPHILS % 83.1 % (40.0-76.0); PLATELET 201 x1000/uL (130-400); RED CELL DISTRIBUTION WIDTH 14.6 % (11.6-14.6); WHITE BLOOD COUNT 9.9 x1000/uL (4.5-11.0)
[2023-05-31 13:19] LABS: ALANINE AMINOTRANSFERASE 23 IU/L (10-49); ALBUMIN 4.2 g/dL (3.2-4.8); ASPARTATE AMINOTRANSFERASE 18 IU/L (<34); BILIRUBIN TOTAL 0.6 mg/dL (0.1-1.0); CARBON DIOXIDE 22 mEq/L (21-32); CHLORIDE 106 mEq/L (98-107); CREATININE 0.7 mg/dL (0.6-1.3); GLUCOSE 173 mg/dL (70-105); POTASSIUM 3.8 mEq/L (3.5-5.1); PROTEIN TOTAL 7.1 g/dL (6.0-8.3); SODIUM 138 mEq/L (136-145); UREA NITROGEN BLOOD 9 mg/dL (9-23)
[2023-05-31 13:41] LABS: ETHANOL BLOOD < 10 mg/dL (<10)
[2023-06-01] MEDS ORDERED: PROT20 MT (13:52)
[2023-06-01] MEDS ORDERED: TRAM50TA3 MT ×2 (13:52→13:58)
[2023-06-01] MEDS ORDERED: METO-293 MT (13:52)
== END 2023-05-31 15:38 | disposition home or self-care (01) ==
LOC: ER 10:11
DX: R10.33 Periumbilical pain (principal); R56.9 Unspecified convulsions; F12.10 Cannabis abuse, uncomplicated; Z79.899 Other long term (current) drug therapy
CPT/HCPCS: 80053; 80320; 83690; 85025; 36415; 96361; 96374; 99283; J2405; J7030; Z7610 ×2; G0480

== ENCOUNTER 2023-06-01 07:17 | Emergency (ER) | payer MEDICAID ==
[~2023-06-01] VITALS: Ht 167.6 cm; Wt 100.0 kg
[2023-06-01 07:24] VITALS: O2SAT 99
[2023-06-01] MEDS ORDERED: METOCLOPRAMIDE HCL 10MG/2ML VIAL IV STA (08:40)
[2023-06-01] MEDS ORDERED: PANTOPRAZOLE SODIUM 40 MG/VIAL IV STA (08:40)
[2023-06-01] MEDS ORDERED: FAMOTIDINE 20MG/2ML VIAL IV STA (08:40)
[2023-06-01] MEDS ORDERED: MORPHINE SULFATE 4 MG/ML CPJ (NOT FOR IM USE) IV ONE (08:45)
[2023-06-01] MEDS ORDERED: SODIUM CHLORIDE 0.9% 2,000 ML IV ONE (08:45)
[2023-06-01 10:38] LABS: BASOPHILS % 0.2 % (0.0-2.0); HEMATOCRIT. 38.2 % (42.0-52.0); HEMOGLOBIN. 12.9 g/dL (14.0-18.0); LYMPHOCYTES % 8.6 % (20.0-50.0); MEAN CORPUSCULAR HEMOGLOBIN 27.7 pg (28.0-32.0); MEAN CORPUSCULAR HGB CONC 33.7 g/dL (31.0-37.0); MEAN CORPUSCULAR VOLUME 82.2 fL (80.0-94.0); MEAN PLATELET VOLUME 8.4 fl (7.4-10.4); MONOCYTES % 3.4 % (2.0-8.0); NEUTROPHILS % 87.8 % (40.0-76.0); PLATELET 200 x1000/uL (130-400); RED BLOOD CELL COUNT 4.64 mill/uL (4.7-6.1); RED CELL DISTRIBUTION WIDTH 14.4 % (11.6-14.6); WHITE BLOOD COUNT 9.1 x1000/uL (4.5-11.0)
[2023-06-01 10:50] LABS: INR 1.1; PROTHROMBIN TIME 11.5 sec (9.6-11.0)
[2023-06-01 12:22] LABS: ALANINE AMINOTRANSFERASE 29 IU/L (10-49); ALBUMIN 4.2 g/dL (3.2-4.8); ASPARTATE AMINOTRANSFERASE 25 IU/L (<34); BILIRUBIN TOTAL 0.8 mg/dL (0.1-1.0); CALCIUM 9.1 mg/dL (8.7-10.4); CARBON DIOXIDE 22 mEq/L (21-32); CHLORIDE 103 mEq/L (98-107); CREATININE 0.8 mg/dL (0.6-1.3); GLUCOSE 162 mg/dL (70-105); SODIUM 136 mEq/L (136-145); UREA NITROGEN BLOOD 12 mg/dL (9-23)
[2023-06-01] MEDS ORDERED: PROT20 MT (13:52)
[2023-06-01] MEDS ORDERED: METO-293 MT (13:52)
[2023-06-01] MEDS ORDERED: TRAM50TA3 MT ×2 (13:52→13:58)
[2023-06-01 14:28] VITALS: BP 128/77; PULSE 74; RESP 18; TEMP 98.6
[2023-06-02] MEDS ORDERED: FAMO10TA41 MT (11:13)
== END 2023-06-01 14:31 | disposition home or self-care (01) ==
LOC: ER 07:17
DX: K29.70 Gastritis, unspecified, without bleeding (principal); E86.0 Dehydration
CPT/HCPCS: 80053; 83690; 85025; 85610; 36415; 96365; 96366; 96375; 99284; J3490; J2765; C9113; J2270; J7030; Z7610 ×6

== ENCOUNTER 2023-06-02 08:02 | Emergency (ER) | payer MEDICAID ==
[~2023-06-02] VITALS: Ht 170.2 cm; Wt 82.0 kg
[~2023-06-02 08:02] MED LIST changes: +PROT20 MT; +TRAM50TA3 MT
[2023-06-02 08:03] VITALS: O2SAT 100
[2023-06-02] MEDS ORDERED: MAGNESIUM/ALUMINUM HYDROXIDE/SIMETHICONE 30ML UDC PO STA (08:11)
[2023-06-02] MEDS ORDERED: FAMOTIDINE 20MG TABLET PO ONE (08:15)
[2023-06-02] MEDS ORDERED: ONDANSETRON 4MG ODT PO ONE (08:15)
[2023-06-02 10:07] LABS: BASOPHILS % 0.2 % (0.0-2.0); EOSINOPHILS % 0.4 % (0.0-5.0); HEMATOCRIT. 39.4 % (42.0-52.0); HEMOGLOBIN. 12.8 g/dL (14.0-18.0); LYMPHOCYTES % 9.3 % (20.0-50.0); MEAN CORPUSCULAR HEMOGLOBIN 27.2 pg (28.0-32.0); MEAN CORPUSCULAR HGB CONC 32.5 g/dL (31.0-37.0); MEAN CORPUSCULAR VOLUME 83.8 fL (80.0-94.0); MEAN PLATELET VOLUME 8.3 fl (7.4-10.4); MONOCYTES % 4.2 % (2.0-8.0); NEUTROPHILS % 85.9 % (40.0-76.0); PLATELET 215 x1000/uL (130-400); RED BLOOD CELL COUNT 4.71 mill/uL (4.7-6.1); RED CELL DISTRIBUTION WIDTH 14.4 % (11.6-14.6); WHITE BLOOD COUNT 9.5 x1000/uL (4.5-11.0)
[2023-06-02 10:28] LABS: ALANINE AMINOTRANSFERASE 29 IU/L (10-49); ALBUMIN 4.3 g/dL (3.2-4.8); ASPARTATE AMINOTRANSFERASE 23 IU/L (<34); BILIRUBIN TOTAL 0.7 mg/dL (0.1-1.0); CALCIUM 9.3 mg/dL (8.7-10.4); CARBON DIOXIDE 27 mEq/L (21-32); CHLORIDE 104 mEq/L (98-107); CREATININE 0.9 mg/dL (0.6-1.3); GLUCOSE 162 mg/dL (70-105); POTASSIUM 3.9 mEq/L (3.5-5.1); PROTEIN TOTAL 7.1 g/dL (6.0-8.3); SODIUM 138 mEq/L (136-145); UREA NITROGEN BLOOD 10 mg/dL (9-23)
[2023-06-02 10:50] LABS: ETHANOL BLOOD < 10 mg/dL (<10)
[2023-06-02] MEDS ORDERED: FAMO10TA41 MT (11:13)
[2023-06-02 11:28] VITALS: BP 128/101; PULSE 114; RESP 20; TEMP 98.1
== END 2023-06-02 11:30 | disposition home or self-care (01) ==
LOC: ER 08:10
DX: G89.29 Other chronic pain (principal); R10.9 Unspecified abdominal pain; R11.2 Nausea with vomiting, unspecified; F12.10 Cannabis abuse, uncomplicated
CPT/HCPCS: 80053; 80320; 83690; 85025; 36415; 71045; 99284; Q0162; G0480

== ENCOUNTER 2023-07-11 08:34 | Emergency (ER) | payer MEDICAID ==
[~2023-07-11] VITALS: Ht 175.3 cm; Wt 85.0 kg
[~2023-07-11 08:34] MED LIST changes: +FAMO10TA41 MT
[2023-07-11 08:36] VITALS: BP 132/78; PULSE 82; RESP 16; TEMP 98.6; O2SAT 97
[2023-07-11] MEDS ORDERED: ONDANSETRON 4MG ODT PO STA (08:36)
== END 2023-07-11 10:03 | disposition left against medical advice (07) ==
LOC: ER 08:34
DX: R10.84 Generalized abdominal pain (principal); R56.9 Unspecified convulsions; F12.10 Cannabis abuse, uncomplicated; Z79.899 Other long term (current) drug therapy
CPT/HCPCS: 99283

== ENCOUNTER 2023-08-01 10:26 | Emergency (ER) | payer MEDICAID ==
[~2023-08-01] VITALS: Ht 167.6 cm; Wt 100.0 kg
[2023-08-01] MEDS ORDERED: ONDANSETRON 4MG ODT PO STA (10:32)
[2023-08-01] MEDS ORDERED: ONDANSETRON HCL 4MG/2ML INJ IV STA (10:32)
[2023-08-01 10:33] VITALS: TEMP 98.7; O2SAT 98
[2023-08-01 10:45] VITALS: BP 145/88; PULSE 94; RESP 18
[2023-08-01] MEDS ORDERED: SODIUM CHLORIDE 0.9% 1,000 ML IV ONE (10:45)
[2023-08-01] MEDS ORDERED: KETOROLAC 30MG/ML VIAL IV ONE (10:45)
[2023-08-01 11:54] LABS: CLARITY URINE CLEAR (CLEAR); COLOR URINE YELLOW (YELLOW); PROTEIN URINE 2+ (NEGATIVE); SPECIFIC GRAVITY URINE 1.023 (1.005-1.030)
[2023-08-01 11:55] LABS: GLUCOSE URINE 2+ (NEGATIVE); KETONES URINE TRACE (NEGATIVE); LEUKOCYTE ESTERASE URINE NEGATIVE (NEGATIVE); NITRITE URINE NEGATIVE (NEGATIVE); OCCULT BLOOD URINE 1+ (NEGATIVE); UROBILINOGEN URINE 0.2 E.U./dL (0.2-1.0)
[2023-08-01 12:43] LABS: BACTERIA URINE NONE SEEN; RBC URINE 0-2 /hpf (0-2); SQUAMOUS EPITHELIAL CELL URINE NONE SEEN /lpf (RARE/1+); WBC URINE NONE SEEN /hpf (0-2); YEAST URINE NONE SEEN
== END 2023-08-01 11:57 | disposition left against medical advice (07) ==
LOC: ER 10:26
DX: R10.13 Epigastric pain (principal); Z87.19 Personal history of other diseases of the digestive system; Z79.899 Other long term (current) drug therapy; Z86.59 Personal history of other mental and behavioral disorders
CPT/HCPCS: 81003; 96374; 99283; Q0162; J1885; J2405; J7030; Z7610 ×3; C1893; L1830

== ENCOUNTER 2023-08-03 21:40 | Emergency (ER) | payer MEDICAID ==
[~2023-08-03] VITALS: Ht 175.3 cm; Wt 91.0 kg
[2023-08-03 21:54] VITALS: BP 165/95; PULSE 103; RESP 18; TEMP 97.8; O2SAT 99
[2023-08-03] MEDS: HALOPERIDOL LACTATE 5MG/ML VIAL IM ONE (22:02)
[2023-08-03 22:36] LABS: BASOPHILS % 0.3 % (0.0-2.0); EOSINOPHILS % 0.4 % (0.0-5.0); HEMATOCRIT. 40.1 % (42.0-52.0); HEMOGLOBIN. 12.7 g/dL (14.0-18.0); LYMPHOCYTES % 10.1 % (20.0-50.0); MEAN CORPUSCULAR HEMOGLOBIN 26.4 pg (28.0-32.0); MEAN CORPUSCULAR HGB CONC 31.7 g/dL (31.0-37.0); MEAN CORPUSCULAR VOLUME 83.1 fL (80.0-94.0); MEAN PLATELET VOLUME 8.3 fl (7.4-10.4); MONOCYTES % 4.7 % (2.0-8.0); NEUTROPHILS % 84.5 % (40.0-76.0); PLATELET 225 x1000/uL (130-400); RED BLOOD CELL COUNT 4.83 mill/uL (4.7-6.1)
[2023-08-03 22:47] LABS: PROTHROMBIN TIME 11.1 sec (9.6-11.0)
[2023-08-03 22:50] LABS: ALANINE AMINOTRANSFERASE 31 IU/L (10-49); ALBUMIN 4.6 g/dL (3.2-4.8); ASPARTATE AMINOTRANSFERASE 21 IU/L (<34); BILIRUBIN TOTAL 0.7 mg/dL (0.1-1.0); CALCIUM 9.6 mg/dL (8.7-10.4); CARBON DIOXIDE 24 mEq/L (21-32); CHLORIDE 102 mEq/L (98-107); CREATININE 0.9 mg/dL (0.6-1.3); GLUCOSE 185 mg/dL (70-105); POTASSIUM 3.7 mEq/L (3.5-5.1); PROTEIN TOTAL 7.4 g/dL (6.0-8.3); SODIUM 137 mEq/L (136-145); UREA NITROGEN BLOOD 13 mg/dL (9-23)
[2023-08-03 22:51] LABS: ETHANOL BLOOD < 10 mg/dL (<10)
[2023-08-04] MEDS ORDERED: METO-293 MT (01:34)
[2023-08-04] MEDS: SODIUM CHLORIDE 0.9% 1,000 ML IV ONE (03:35)
[2023-08-04] MEDS: PANTOPRAZOLE SODIUM 40 MG/VIAL IV STA (03:44)
[2023-08-04] MEDS: DIPHENHYDRAMINE 50MG/ML VIAL IM ONE (03:44)
[2023-08-04] MEDS ORDERED: DIPHENHYDRAMINE 50MG/ML VIAL IM NR (03:45)
[2023-08-04] MEDS ORDERED: PANTOPRAZOLE SODIUM 40 MG/VIAL IV NR (03:45)
== END 2023-08-04 04:22 | disposition home or self-care (01) ==
LOC: ER 21:40
DX: R10.9 Unspecified abdominal pain (principal); R11.2 Nausea with vomiting, unspecified; F12.90 Cannabis use, unspecified, uncomplicated; Z68.29 Body mass index [BMI] 29.0-29.9, adult; Z79.899 Other long term (current) drug therapy
CPT/HCPCS: 80053; 80320; 83690; 85025; 85610; 36415; 96372 ×2; 99284; 96361; 96374; J1630; J7030; Z7610 ×2; J1200; C9113; G0480

== ENCOUNTER 2023-09-26 16:36 | Emergency (ER) | payer MEDICAID ==
[~2023-09-26] VITALS: Ht 170.2 cm; Wt 88.0 kg
[2023-09-26 16:38] VITALS: BP 126/67; PULSE 130; RESP 22; O2SAT 98
== END 2023-09-26 21:28 | disposition home or self-care (01) ==
LOC: ER 16:36
DX: R10.84 Generalized abdominal pain (principal); F44.5 Conversion disorder with seizures or convulsions; E11.9 Type 2 diabetes mellitus without complications; I10 Essential (primary) hypertension; F12.10 Cannabis abuse, uncomplicated; Z79.899 Other long term (current) drug therapy
CPT/HCPCS: 99283; Z7610 ×2

== ENCOUNTER 2023-09-26 21:52 | Emergency (ER) | payer MEDICAID | END 2023-09-26 23:52 | disposition home or self-care (01) | LOC: ER 21:52 | DX: G89.29 Other chronic pain (principal); R10.9 Unspecified abdominal pain; E11.9 Type 2 diabetes mellitus without complications; I10 Essential (primary) hypertension; F12.10 Cannabis abuse, uncomplicated; Z79.899 Other long term (current) drug therapy | CPT/HCPCS: 99281 ==

== ENCOUNTER 2023-11-05 12:44 | Emergency (ER) | payer MEDICAID ==
[~2023-11-05] VITALS: Ht 167.6 cm; Wt 109.0 kg
[2023-11-05 12:47] VITALS: O2SAT 100
[2023-11-05] MEDS ORDERED: KETOROLAC 30MG/ML VIAL IV STA (12:59)
[2023-11-05] MEDS ORDERED: ONDANSETRON HCL 4MG/2ML INJ IV STA (12:59)
[2023-11-05] MEDS: SODIUM CHLORIDE 0.9% 1,000 ML IV ONE (13:00)
[2023-11-05 13:43] LABS: BASOPHILS % 0.5 % (0.0-2.0); EOSINOPHILS % 0.3 % (0.0-5.0); HEMATOCRIT. 45.2 % (42.0-52.0); HEMOGLOBIN. 14.9 g/dL (14.0-18.0); LYMPHOCYTES % 11.7 % (20.0-50.0); MEAN CORPUSCULAR HEMOGLOBIN 27.2 pg (28.0-32.0); MEAN CORPUSCULAR VOLUME 82.6 fL (80.0-94.0); MEAN PLATELET VOLUME 8.6 fl (7.4-10.4); MONOCYTES % 4.9 % (2.0-8.0); NEUTROPHILS % 82.6 % (40.0-76.0); PLATELET 221 x1000/uL (130-400); RED BLOOD CELL COUNT 5.47 mill/uL (4.7-6.1); RED CELL DISTRIBUTION WIDTH 15.8 % (11.6-14.6); WHITE BLOOD COUNT 8.3 x1000/uL (4.5-11.0)
[2023-11-05 13:51] LABS: CHLORIDE 103 mEq/L (98-107); SODIUM 136 mEq/L (136-145)
[2023-11-05 13:52] LABS: CALCIUM 10.3 mg/dL (8.7-10.4); CARBON DIOXIDE 24 mEq/L (21-32)
[2023-11-05 13:55] LABS: PROTHROMBIN TIME 10.9 sec (9.6-11.0)
[2023-11-05 13:57] LABS: CREATININE 1.2 mg/dL (0.6-1.3); GLUCOSE 238 mg/dL (70-105); TROPONIN I HIGH SENSITIVITY 11 ng/L (3.0-53); UREA NITROGEN BLOOD 14 mg/dL (9-23)
[2023-11-05 13:59] LABS: ALANINE AMINOTRANSFERASE 43 IU/L (10-49); ALBUMIN 4.6 g/dL (3.2-4.8); ASPARTATE AMINOTRANSFERASE 28 IU/L (<34); BILIRUBIN DIRECT 0.2 mg/dL (<=3.0); BILIRUBIN TOTAL 0.5 mg/dL (0.1-1.0); PROTEIN TOTAL 7.3 g/dL (6.0-8.3)
[2023-11-05 14:05] LABS: ETHANOL BLOOD < 10 mg/dL (<10)
[2023-11-05] MEDS: ONDANSETRON HCL 4MG/2ML INJ IV NR (15:15)
[2023-11-05] MEDS: KETOROLAC 30MG/ML VIAL IV NR (15:15)
[2023-11-05] MEDS ORDERED: FAMO-135 MT (16:11)
[2023-11-05 17:21] VITALS: BP 130/70; PULSE 80; RESP 15; TEMP 97.5
== END 2023-11-05 17:24 | disposition home or self-care (01) ==
LOC: ER 12:44
DX: K29.60 Other gastritis without bleeding (principal); R07.89 Other chest pain; E11.9 Type 2 diabetes mellitus without complications; I10 Essential (primary) hypertension; F12.90 Cannabis use, unspecified, uncomplicated; Z79.899 Other long term (current) drug therapy
CPT/HCPCS: 80076; 80048; 80320; 83690; 85025; 85610; 84484; 36415; 71045; 93005; 96361; 96374; 96375; 99284; J1885; J2405; J7030; Z7610 ×3; G0480

== ENCOUNTER 2023-11-05 18:07 | Emergency (ER) | payer MEDICAID ==
[~2023-11-05] VITALS: Ht 167.6 cm; Wt 99.0 kg
[2023-11-05 18:08] VITALS: BP 161/114; PULSE 126; RESP 20; TEMP 98.5; O2SAT 98
== END 2023-11-05 19:00 | disposition left against medical advice (07) ==
LOC: ER 18:07
DX: R11.2 Nausea with vomiting, unspecified (principal); Z53.21 Procedure and treatment not carried out due to patient leaving prior to being seen by health care provider

== ENCOUNTER 2023-11-14 06:32 | Emergency (ER) | payer MEDICAID ==
[~2023-11-14] VITALS: Ht 167.6 cm; Wt 84.0 kg
[2023-11-14 06:37] VITALS: TEMP 98.3; O2SAT 98
[2023-11-14] MEDS ORDERED: MAGNESIUM/ALUMINUM HYDROXIDE/SIMETHICONE 30ML UDC PO STA (06:38)
[2023-11-14] MEDS ORDERED: KETOROLAC 30MG/ML VIAL IV STA (06:38)
[2023-11-14] MEDS ORDERED: ONDANSETRON 4MG ODT PO STA (06:38)
[2023-11-14] MEDS ORDERED: DICYCLOMINE 10 MG/5 ML ORAL SYR PO STA (06:38)
[2023-11-14 07:11] LABS: BASOPHILS % 0.5 % (0.0-2.0); EOSINOPHILS % 1.3 % (0.0-5.0); HEMATOCRIT. 44.5 % (42.0-52.0); HEMOGLOBIN. 14.8 g/dL (14.0-18.0); LYMPHOCYTES % 14.3 % (20.0-50.0); MEAN CORPUSCULAR HEMOGLOBIN 27.2 pg (28.0-32.0); MEAN CORPUSCULAR HGB CONC 33.4 g/dL (31.0-37.0); MEAN CORPUSCULAR VOLUME 81.6 fL (80.0-94.0); MEAN PLATELET VOLUME 8.3 fl (7.4-10.4); MONOCYTES % 8.4 % (2.0-8.0); NEUTROPHILS % 75.5 % (40.0-76.0); PLATELET 184 x1000/uL (130-400); RED BLOOD CELL COUNT 5.45 mill/uL (4.7-6.1); RED CELL DISTRIBUTION WIDTH 15.6 % (11.6-14.6); WHITE BLOOD COUNT 6.8 x1000/uL (4.5-11.0)
[2023-11-14 07:17] LABS: PROTHROMBIN TIME 11.3 sec (9.6-11.0)
[2023-11-14 07:29] LABS: CHLORIDE 103 mEq/L (98-107); POTASSIUM 3.5 mEq/L (3.5-5.1); SODIUM 137 mEq/L (136-145)
[2023-11-14 07:30] LABS: CALCIUM 9.8 mg/dL (8.7-10.4); CARBON DIOXIDE 23 mEq/L (21-32)
[2023-11-14 07:35] LABS: CREATININE 0.9 mg/dL (0.6-1.3); ETHANOL BLOOD < 10 mg/dL (<10); GLUCOSE 171 mg/dL (70-105); UREA NITROGEN BLOOD 12 mg/dL (9-23)
[2023-11-14 07:36] LABS: ALANINE AMINOTRANSFERASE 44 IU/L (10-49)
[2023-11-14 07:37] LABS: ALBUMIN 4.6 g/dL (3.2-4.8); ASPARTATE AMINOTRANSFERASE 29 IU/L (<34); BILIRUBIN DIRECT 0.3 mg/dL (<=3.0); BILIRUBIN TOTAL 0.8 mg/dL (0.1-1.0); PROTEIN TOTAL 7.4 g/dL (6.0-8.3)
[2023-11-14] MEDS: DICYCLOMINE HCL 10MG CAPSULE PO NR (07:49)
[2023-11-14] MEDS: KETOROLAC 30MG/ML VIAL IV NR (07:49)
[2023-11-14] MEDS: ONDANSETRON 4MG ODT PO NR (07:49)
[2023-11-14] MEDS: MAGNESIUM/ALUMINUM HYDROXIDE/SIMETHICONE 30ML UDC PO NR (07:49)
[2023-11-14] MEDS: SODIUM CHLORIDE 0.9% 1,000 ML IV ONE (09:51)
[2023-11-14] MEDS: MORPHINE SULFATE 4 MG/ML INJ (FOR IV/IM USE) IV ONE (09:52)
[2023-11-14 10:44] VITALS: BP 127/75; PULSE 71; RESP 16
== END 2023-11-14 11:22 | disposition home or self-care (01) ==
LOC: ER 07:07
DX: R10.9 Unspecified abdominal pain (principal); F12.10 Cannabis abuse, uncomplicated; I10 Essential (primary) hypertension; Z79.899 Other long term (current) drug therapy; Z98.890 Other specified postprocedural states; Z87.19 Personal history of other diseases of the digestive system
CPT/HCPCS: 80076; 80048; 80320; 83605; 83690; 85025; 85610; 36415; 96361; 96374; 96375; 99284; Q0162; J1885; J2270; J7030; Z7610 ×2; G0480

== ENCOUNTER 2023-12-13 06:32 | Emergency (ER) | payer MEDICAID ==
[~2023-12-13] VITALS: Ht 167.6 cm; Wt 95.0 kg
[2023-12-13 06:38] VITALS: O2SAT 96
[2023-12-13] MEDS: ONDANSETRON HCL 4MG/2ML INJ IM ONE (06:45)
[2023-12-13 07:40] LABS: BASOPHILS % 0.4 % (0.0-2.0); EOSINOPHILS % 0.7 % (0.0-5.0); HEMATOCRIT. 42.9 % (42.0-52.0); HEMOGLOBIN. 13.9 g/dL (14.0-18.0); LYMPHOCYTES % 10.7 % (20.0-50.0); MEAN CORPUSCULAR HEMOGLOBIN 27.2 pg (28.0-32.0); MEAN CORPUSCULAR HGB CONC 32.4 g/dL (31.0-37.0); MEAN PLATELET VOLUME 8.6 fl (7.4-10.4); MONOCYTES % 4.2 % (2.0-8.0); PLATELET 215 x1000/uL (130-400); RED BLOOD CELL COUNT 5.11 mill/uL (4.7-6.1); RED CELL DISTRIBUTION WIDTH 15.8 % (11.6-14.6); WHITE BLOOD COUNT 11.6 x1000/uL (4.5-11.0)
[2023-12-13 07:46] LABS: CHLORIDE 103 mEq/L (98-107); POTASSIUM 3.9 mEq/L (3.5-5.1); SODIUM 135 mEq/L (136-145)
[2023-12-13 07:47] LABS: CALCIUM 10.6 mg/dL (8.7-10.4); CARBON DIOXIDE 24 mEq/L (21-32)
[2023-12-13 07:52] LABS: CREATININE 0.9 mg/dL (0.6-1.3); GLUCOSE 188 mg/dL (70-105); UREA NITROGEN BLOOD 10 mg/dL (9-23)
[2023-12-13 07:54] LABS: ALANINE AMINOTRANSFERASE 43 IU/L (10-49); ALBUMIN 4.8 g/dL (3.2-4.8); ASPARTATE AMINOTRANSFERASE 33 IU/L (<34); BILIRUBIN DIRECT 0.2 mg/dL (<=3.0); BILIRUBIN TOTAL 0.7 mg/dL (0.1-1.0); PROTEIN TOTAL 7.2 g/dL (6.0-8.3)
[2023-12-13 07:55] LABS: ETHANOL BLOOD < 10 mg/dL (<10)
[2023-12-13 08:00] VITALS: BP 155/67; PULSE 93; RESP 16; TEMP 98.2
[2023-12-13] MEDS ORDERED: ONDANSETRON HCL 4MG/2ML INJ IM NR (08:00)
[2023-12-13] MEDS ORDERED: ONDANSETRON HCL 4MG/2ML INJ IV NR (08:30)
[2023-12-13] MEDS: DICYCLOMINE HCL 10MG/ML 2ML VIAL IM ONE (08:31)
[2023-12-13] MEDS: ONDANSETRON INJ 8 MG in DEXTROSE 5% WATER 50 ML IV NR (08:37)
[2023-12-13] MEDS ORDERED: DICY20TA2 MT (08:47)
[2023-12-13] MEDS ORDERED: ONDA4TAB50 MT (08:47)
== END 2023-12-13 09:36 | disposition home or self-care (01) ==
LOC: ER 06:32
DX: R10.9 Unspecified abdominal pain (principal); I10 Essential (primary) hypertension; Z79.899 Other long term (current) drug therapy
CPT/HCPCS: 80076; 80048; 80320; 83690; 85025; 36415; 96365; 96372; 99284; J0500; J2405; J7060; Z7610 ×3; G0480

== ENCOUNTER 2023-12-17 06:25 | Emergency (ER) | payer MEDICAID ==
[~2023-12-17] VITALS: Ht 177.8 cm; Wt 105.0 kg
[~2023-12-17 06:25] MED LIST changes: +ONDA4TAB50 MT
[2023-12-17 06:34] VITALS: O2SAT 95
[2023-12-17 12:22] VITALS: BP 148/87; PULSE 84; RESP 14; TEMP 97.8
== END 2023-12-17 16:06 | disposition home or self-care (01) ==
LOC: ER 06:25
DX: F10.129 Alcohol abuse with intoxication, unspecified (principal); I10 Essential (primary) hypertension; Z79.899 Other long term (current) drug therapy; Y90.9 Presence of alcohol in blood, level not specified
CPT/HCPCS: 99283; Z7610

== ENCOUNTER 2023-12-28 10:52 | Emergency (ER) | payer MEDICAID ==
[~2023-12-28] VITALS: Ht 175.3 cm; Wt 80.0 kg
[2023-12-28 10:56] VITALS: O2SAT 100
[2023-12-28 11:15] VITALS: BP 151/96; PULSE 87; RESP 12; TEMP 98.3
[2023-12-28] MEDS: MAGNESIUM/ALUMINUM HYDROXIDE/SIMETHICONE 30ML UDC PO STA (11:31)
[2023-12-28] MEDS ORDERED: ESOM40CA MT (11:35)
[2023-12-28] MEDS ORDERED: FAMO40TA70 MT (11:35)
== END 2023-12-28 11:48 | disposition home or self-care (01) ==
LOC: ER 10:52
DX: R10.13 Epigastric pain (principal); F17.200 Nicotine dependence, unspecified, uncomplicated; I10 Essential (primary) hypertension; Z79.899 Other long term (current) drug therapy
CPT/HCPCS: 99283; Z7610

== ENCOUNTER 2023-12-31 07:51 | Emergency (ER) | payer MEDICAID ==
[~2023-12-31] VITALS: Ht 175.3 cm; Wt 80.0 kg
[~2023-12-31 07:51] MED LIST changes: +ESOM40CA MT; +FAMO40TA70 MT
[2023-12-31 07:53] VITALS: O2SAT 95
[2023-12-31] MEDS ORDERED: PANTOPRAZOLE SODIUM 40 MG/VIAL IV STA (08:21)
[2023-12-31] MEDS ORDERED: ONDANSETRON HCL 4MG/2ML INJ IV STA (08:21)
[2023-12-31 08:48] LABS: BASOPHILS % 0.6 % (0.0-2.0); EOSINOPHILS % 1.2 % (0.0-5.0); HEMATOCRIT. 39.8 % (42.0-52.0); LYMPHOCYTES % 15.2 % (20.0-50.0); MEAN CORPUSCULAR HEMOGLOBIN 27.1 pg (28.0-32.0); MEAN CORPUSCULAR HGB CONC 32.6 g/dL (31.0-37.0); MEAN CORPUSCULAR VOLUME 83.1 fL (80.0-94.0); MEAN PLATELET VOLUME 8.5 fl (7.4-10.4); MONOCYTES % 5.1 % (2.0-8.0); NEUTROPHILS % 77.9 % (40.0-76.0); PLATELET 198 x1000/uL (130-400); RED BLOOD CELL COUNT 4.79 mill/uL (4.7-6.1); RED CELL DISTRIBUTION WIDTH 16.2 % (11.6-14.6); WHITE BLOOD COUNT 8.5 x1000/uL (4.5-11.0)
[2023-12-31 09:01] LABS: INR 0.9; PROTHROMBIN TIME 10.5 sec (9.6-11.0)
[2023-12-31 09:13] LABS: CHLORIDE 105 mEq/L (98-107); SODIUM 137 mEq/L (136-145)
[2023-12-31 09:14] LABS: CALCIUM 9.2 mg/dL (8.7-10.4); CARBON DIOXIDE 25 mEq/L (21-32)
[2023-12-31 09:19] LABS: GLUCOSE 157 mg/dL (70-105)
[2023-12-31 09:20] LABS: ETHANOL BLOOD < 10 mg/dL (<10); UREA NITROGEN BLOOD 15 mg/dL (9-23)
[2023-12-31 09:21] LABS: ALANINE AMINOTRANSFERASE 41 IU/L (10-49); ALBUMIN 4.4 g/dL (3.2-4.8); ASPARTATE AMINOTRANSFERASE 28 IU/L (<34); BILIRUBIN DIRECT 0.2 mg/dL (<=3.0)
[2023-12-31 09:22] LABS: BILIRUBIN TOTAL 0.4 mg/dL (0.1-1.0); PROTEIN TOTAL 6.8 g/dL (6.0-8.3)
[2023-12-31] MEDS: MAGNESIUM/ALUMINUM HYDROXIDE/SIMETHICONE 30ML UDC PO STA (09:34)
[2023-12-31] MEDS: PANTOPRAZOLE SODIUM 40 MG/VIAL IV NR (09:35)
[2023-12-31] MEDS: ONDANSETRON HCL 4MG/2ML INJ IV NR (09:35)
[2023-12-31 11:07] LABS: CLARITY URINE CLEAR (CLEAR); COLOR URINE YELLOW (YELLOW); GLUCOSE URINE NEGATIVE (NEGATIVE); KETONES URINE NEGATIVE (NEGATIVE); LEUKOCYTE ESTERASE URINE NEGATIVE (NEGATIVE); NITRITE URINE NEGATIVE (NEGATIVE); OCCULT BLOOD URINE TRACE (NEGATIVE); PROTEIN URINE 2+ (NEGATIVE); SPECIFIC GRAVITY URINE 1.014 (1.005-1.030); UROBILINOGEN URINE 0.2 E.U./dL (0.2-1.0)
[2023-12-31 11:20] LABS: *AMPHETAMINES SCREEN URINE NEGATIVE (NEGATIVE); *BARBITURATES SCREEN URINE NEGATIVE (NEGATIVE); *BENZODIAZEPINES SCREEN URINE NEGATIVE (NEGATIVE); *COCAINE SCREEN URINE NEGATIVE (NEGATIVE); CANNABINOID URINE SCREEN PRESUMPTIVE POSITIVE (NEGATIVE); METHADONE URINE SCREEN NEGATIVE (NEGATIVE); OPIATES URINE SCREEN NEGATIVE (NEGATIVE); PHENCYCLIDINE URINE SCREEN NEGATIVE (NEGATIVE)
[2023-12-31 11:21] LABS: ECSTASY MDMA SCREEN URINE NEGATIVE (NEGATIVE)
[2023-12-31 11:37] LABS: RBC URINE 0-2 /hpf (0-2); SQUAMOUS EPITHELIAL CELL URINE NONE SEEN /lpf (RARE/1+)
[2023-12-31 11:38] LABS: BACTERIA URINE NONE SEEN; WBC URINE 0-2 /hpf (0-2)
[2023-12-31] MEDS ORDERED: PANT40TA51 MT (11:45)
[2023-12-31] MEDS ORDERED: MAG-55 MT (11:45)
[2023-12-31] MEDS: ACETAMINOPHEN 1000MG/100ML 100 ML IV ONE (11:59)
[2023-12-31 12:38] VITALS: TEMP 97.8
[2023-12-31 13:11] VITALS: BP 130/70; PULSE 68; RESP 18
[2023-12-31] MEDS: KETOROLAC 30MG/ML VIAL IV ONE (13:11)
== END 2023-12-31 12:53 | disposition home or self-care (01) ==
LOC: ER 07:51
DX: R10.9 Unspecified abdominal pain (principal); G89.29 Other chronic pain; I10 Essential (primary) hypertension; F10.20 Alcohol dependence, uncomplicated; Z79.899 Other long term (current) drug therapy
CPT/HCPCS: 80076; 80305; 80048; 81003; 80320; 83690; 85025; 85610; 36415; 96365; 96375; 99284; J2405; G0480; J0131

== ENCOUNTER 2024-01-03 08:54 | Emergency (ER) | payer MEDICAID ==
[~2024-01-03] VITALS: Ht 172.7 cm; Wt 79.0 kg
[~2024-01-03 08:54] MED LIST changes: +MAG-55 MT; +PANT40TA51 MT
[2024-01-03 09:01] VITALS: O2SAT 95
[2024-01-03] MEDS: METOCLOPRAMIDE HCL 10MG/2ML VIAL IV STA (09:35)
[2024-01-03] MEDS: ACETAMINOPHEN 1000MG/100ML 100 ML IV ONE (09:45)
[2024-01-03 09:54] LABS: BASOPHILS % 0.6 % (0.0-2.0); EOSINOPHILS % 1.5 % (0.0-5.0); HEMATOCRIT. 40.6 % (42.0-52.0); HEMOGLOBIN. 13.2 g/dL (14.0-18.0); LYMPHOCYTES % 20.9 % (20.0-50.0); MEAN CORPUSCULAR HGB CONC 32.4 g/dL (31.0-37.0); MEAN CORPUSCULAR VOLUME 83.2 fL (80.0-94.0); MEAN PLATELET VOLUME 8.2 fl (7.4-10.4); MONOCYTES % 7.3 % (2.0-8.0); NEUTROPHILS % 69.7 % (40.0-76.0); PLATELET 222 x1000/uL (130-400); RED BLOOD CELL COUNT 4.88 mill/uL (4.7-6.1); RED CELL DISTRIBUTION WIDTH 16.1 % (11.6-14.6); WHITE BLOOD COUNT 7.4 x1000/uL (4.5-11.0)
[2024-01-03 10:02] LABS: CHLORIDE 105 mEq/L (98-107); POTASSIUM 3.9 mEq/L (3.5-5.1); SODIUM 136 mEq/L (136-145)
[2024-01-03 10:03] LABS: CARBON DIOXIDE 26 mEq/L (21-32)
[2024-01-03 10:04] LABS: INR 0.9; PROTHROMBIN TIME 10.6 sec (9.6-11.0)
[2024-01-03 10:08] LABS: GLUCOSE 178 mg/dL (70-105)
[2024-01-03 10:09] LABS: UREA NITROGEN BLOOD 18 mg/dL (9-23)
[2024-01-03] MEDS: MAGNESIUM/ALUMINUM HYDROXIDE/SIMETHICONE 30ML UDC PO STA (10:34)
[2024-01-03 13:34] VITALS: BP 132/80; PULSE 97; RESP 18; TEMP 98.7
== END 2024-01-03 13:36 | disposition home or self-care (01) ==
LOC: ER 08:54
DX: G89.29 Other chronic pain (principal); R10.9 Unspecified abdominal pain; I10 Essential (primary) hypertension; Z79.899 Other long term (current) drug therapy; Z79.82 Long term (current) use of aspirin; Z86.59 Personal history of other mental and behavioral disorders
CPT/HCPCS: 80048; 83690; 85025; 85610; 36415; 96365; 96375; 99284; J2765; Z7610 ×4; J0131

== ENCOUNTER 2024-01-04 06:36 | Emergency (ER) | payer MEDICAID ==
[~2024-01-04] VITALS: Ht 170.2 cm; Wt 90.0 kg
[2024-01-04 06:41] VITALS: BP 157/84; PULSE 92; RESP 18; TEMP 97.7; O2SAT 96
[2024-01-04] MEDS ORDERED: DICYCLOMINE HCL 10MG/ML 2ML VIAL IM ONE (06:45)
[2024-01-04] MEDS ORDERED: ONDANSETRON HCL 4MG/2ML INJ IM ONE (06:45)
== END 2024-01-04 08:27 | disposition home or self-care (01) ==
LOC: ER 06:45
DX: G89.29 Other chronic pain (principal); R10.84 Generalized abdominal pain; I10 Essential (primary) hypertension; Z79.899 Other long term (current) drug therapy; Z86.59 Personal history of other mental and behavioral disorders
CPT/HCPCS: 99283; J0500

== ENCOUNTER 2024-01-05 05:14 | Emergency (ER) | payer MEDICAID ==
[~2024-01-05] VITALS: Ht 167.6 cm; Wt 96.0 kg
[2024-01-05] MEDS: MAGNESIUM/ALUMINUM HYDROXIDE/SIMETHICONE 30ML UDC PO STA (05:23)
[2024-01-05 05:25] VITALS: BP 143/96; PULSE 94; RESP 18; TEMP 97.9; O2SAT 98
[2024-01-05] MEDS ORDERED: MAGNESIUM/ALUMINUM HYDROXIDE/SIMETHICONE 30ML UDC PO NR (06:00)
[2024-01-05] MEDS ORDERED: ONDANSETRON HCL 4MG/2ML INJ IM NR (06:00)
[2024-01-05] MEDS: ONDANSETRON HCL 4MG/2ML INJ IM ONE (06:13)
[2024-01-05] MEDS: DICYCLOMINE HCL 10MG/ML 2ML VIAL IM ONE (06:14)
== END 2024-01-05 06:30 | disposition home or self-care (01) ==
LOC: ER 05:14
DX: G89.29 Other chronic pain (principal); R10.9 Unspecified abdominal pain; I10 Essential (primary) hypertension; F10.20 Alcohol dependence, uncomplicated; Z79.899 Other long term (current) drug therapy; Y90.9 Presence of alcohol in blood, level not specified
CPT/HCPCS: 96372; 99284; J0500; J2405; Z7610

== ENCOUNTER 2024-01-21 06:56 | Emergency (ER) | payer MEDICAID ==
[~2024-01-21] VITALS: Ht 167.6 cm; Wt 91.0 kg
[2024-01-21 07:14] VITALS: O2SAT 98
[2024-01-21 07:51] LABS: BASOPHILS % 0.4 % (0.0-2.0); EOSINOPHILS % 1.8 % (0.0-5.0); HEMATOCRIT. 40.9 % (42.0-52.0); HEMOGLOBIN. 13.2 g/dL (14.0-18.0); LYMPHOCYTES % 19.7 % (20.0-50.0); MEAN CORPUSCULAR HEMOGLOBIN 27.3 pg (28.0-32.0); MEAN CORPUSCULAR HGB CONC 32.4 g/dL (31.0-37.0); MEAN CORPUSCULAR VOLUME 84.3 fL (80.0-94.0); MEAN PLATELET VOLUME 8.2 fl (7.4-10.4); NEUTROPHILS % 70.1 % (40.0-76.0); PLATELET 178 x1000/uL (130-400); RED BLOOD CELL COUNT 4.85 mill/uL (4.7-6.1); RED CELL DISTRIBUTION WIDTH 16.2 % (11.6-14.6); WHITE BLOOD COUNT 8.2 x1000/uL (4.5-11.0)
[2024-01-21] MEDS: SODIUM CHLORIDE 0.9% 1,000 ML IV ONE (07:56)
[2024-01-21] MEDS: KETOROLAC 30MG/ML VIAL IV STA (07:56)
[2024-01-21] MEDS: ONDANSETRON HCL 4MG/2ML INJ IV STA (07:56)
[2024-01-21 07:58] LABS: CARBON DIOXIDE 24 mEq/L (21-32); CHLORIDE 107 mEq/L (98-107); POTASSIUM 3.9 mEq/L (3.5-5.1); SODIUM 138 mEq/L (136-145)
[2024-01-21 07:59] LABS: CALCIUM 9.4 mg/dL (8.7-10.4)
[2024-01-21 08:04] LABS: CREATININE 0.8 mg/dL (0.6-1.3); GLUCOSE 146 mg/dL (70-105); UREA NITROGEN BLOOD 10 mg/dL (9-23)
[2024-01-21 08:05] LABS: ALANINE AMINOTRANSFERASE 30 IU/L (10-49)
[2024-01-21 08:06] LABS: ALBUMIN 4.4 g/dL (3.2-4.8); ASPARTATE AMINOTRANSFERASE 21 IU/L (<34); BILIRUBIN TOTAL 0.2 mg/dL (0.1-1.0); PROTEIN TOTAL 6.7 g/dL (6.0-8.3)
[2024-01-21 08:09] LABS: BILIRUBIN DIRECT < 0.1 mg/dL (<=3.0); ETHANOL BLOOD < 10 mg/dL (<10)
[2024-01-21 08:18] LABS: PROTHROMBIN TIME 10.8 sec (9.6-11.0)
[2024-01-21 09:58] VITALS: BP 145/67; PULSE 65; RESP 15; TEMP 98.6
[2024-01-21] MEDS ORDERED: ACETAMINOPHEN 1000MG/100ML 100 ML IV ONE (10:00)
[2024-01-21] MEDS ORDERED: METOCLOPRAMIDE HCL 10MG/2ML VIAL IV ONE (10:00)
== END 2024-01-21 10:02 | disposition home or self-care (01) ==
LOC: ER 06:56
DX: G89.29 Other chronic pain (principal); R10.13 Epigastric pain; I10 Essential (primary) hypertension; Z79.899 Other long term (current) drug therapy; Z86.59 Personal history of other mental and behavioral disorders
CPT/HCPCS: 80076; 80048; 80320; 83690; 85025; 85610; 36415; 96374; 96375; 99284; J1885; J2405; J7030; G0480; J0131

== ENCOUNTER 2024-01-25 05:56 | Emergency (ER) | payer MEDICAID ==
[~2024-01-25] VITALS: Ht 170.2 cm; Wt 82.0 kg
[2024-01-25 05:59] VITALS: O2SAT 100
[2024-01-25] MEDS ORDERED: ONDANSETRON HCL 4MG/2ML INJ IV STA (06:15)
[2024-01-25] MEDS ORDERED: MORPHINE SULFATE 4 MG/ML INJ (FOR IV/IM USE) IV STA (06:15)
[2024-01-25 06:39] LABS: BASOPHILS % 0.7 % (0.0-2.0); EOSINOPHILS % 1.7 % (0.0-5.0); HEMOGLOBIN. 14.3 g/dL (14.0-18.0); LYMPHOCYTES % 28.1 % (20.0-50.0); MEAN CORPUSCULAR HEMOGLOBIN 27.6 pg (28.0-32.0); MEAN CORPUSCULAR HGB CONC 32.6 g/dL (31.0-37.0); MEAN CORPUSCULAR VOLUME 84.6 fL (80.0-94.0); MEAN PLATELET VOLUME 8.5 fl (7.4-10.4); NEUTROPHILS % 62.5 % (40.0-76.0); PLATELET 197 x1000/uL (130-400); RED CELL DISTRIBUTION WIDTH 16.6 % (11.6-14.6); WHITE BLOOD COUNT 7.1 x1000/uL (4.5-11.0)
[2024-01-25 06:48] LABS: CHLORIDE 108 mEq/L (98-107); POTASSIUM 3.9 mEq/L (3.5-5.1); SODIUM 139 mEq/L (136-145)
[2024-01-25 06:49] LABS: CALCIUM 9.4 mg/dL (8.7-10.4); CARBON DIOXIDE 23 mEq/L (21-32)
[2024-01-25 06:50] LABS: PROTHROMBIN TIME 11.1 sec (9.6-11.0)
[2024-01-25 06:54] LABS: CREATININE 1.1 mg/dL (0.6-1.3); GLUCOSE 151 mg/dL (70-105); UREA NITROGEN BLOOD 14 mg/dL (9-23)
[2024-01-25 06:56] LABS: ALANINE AMINOTRANSFERASE 49 IU/L (10-49); ALBUMIN 4.6 g/dL (3.2-4.8); ASPARTATE AMINOTRANSFERASE 30 IU/L (<34); BILIRUBIN TOTAL 0.4 mg/dL (0.1-1.0); PROTEIN TOTAL 7.2 g/dL (6.0-8.3)
[2024-01-25] MEDS: SODIUM CHLORIDE 0.9% 1,000 ML IV ONE (09:54)
[2024-01-25] MEDS: ONDANSETRON HCL 4MG/2ML INJ IV NR (10:02)
[2024-01-25] MEDS: MORPHINE SULFATE 4 MG/ML INJ (FOR IV/IM USE) IV NR (10:03)
[2024-01-25 12:40] VITALS: BP 136/96; PULSE 72; RESP 18; TEMP 98
== END 2024-01-25 12:46 | disposition home or self-care (01) ==
LOC: ER 05:56
DX: R10.32 Left lower quadrant pain (principal); Z79.899 Other long term (current) drug therapy; Z86.59 Personal history of other mental and behavioral disorders
CPT/HCPCS: 80053; 83690; 85025; 85610; 36415; 74176; 96361; 96374; 96375; 99285; J2405; J2270; J7030; Z7610; C1893

== ENCOUNTER 2024-01-26 01:00 | Emergency (ER) | payer MEDICAID ==
[~2024-01-26] VITALS: Ht 170.2 cm; Wt 91.0 kg
[2024-01-26 01:02] VITALS: TEMP 98.6; O2SAT 98
[2024-01-26] MEDS: SODIUM CHLORIDE 0.9% 1,000 ML IV ONE (01:45)
[2024-01-26] MEDS ORDERED: HALOPERIDOL LACTATE 5MG/ML VIAL IM ONE (01:45)
[2024-01-26] MEDS ORDERED: ONDANSETRON HCL 4MG/2ML INJ IV ONE (01:45)
[2024-01-26 02:14] LABS: BASOPHILS % 0.6 % (0.0-2.0); EOSINOPHILS % 1.3 % (0.0-5.0); HEMATOCRIT. 40.3 % (42.0-52.0); HEMOGLOBIN. 13.3 g/dL (14.0-18.0); LYMPHOCYTES % 16.9 % (20.0-50.0); MEAN CORPUSCULAR HEMOGLOBIN 27.4 pg (28.0-32.0); MEAN CORPUSCULAR VOLUME 83.3 fL (80.0-94.0); MEAN PLATELET VOLUME 8.3 fl (7.4-10.4); MONOCYTES % 5.7 % (2.0-8.0); NEUTROPHILS % 75.5 % (40.0-76.0); PLATELET 192 x1000/uL (130-400); RED BLOOD CELL COUNT 4.84 mill/uL (4.7-6.1); RED CELL DISTRIBUTION WIDTH 16.2 % (11.6-14.6); WHITE BLOOD COUNT 8.5 x1000/uL (4.5-11.0)
[2024-01-26 02:18] LABS: CHLORIDE 107 mEq/L (98-107); POTASSIUM 3.6 mEq/L (3.5-5.1); SODIUM 138 mEq/L (136-145)
[2024-01-26 02:19] LABS: CALCIUM 9.1 mg/dL (8.7-10.4); CARBON DIOXIDE 24 mEq/L (21-32)
[2024-01-26 02:24] LABS: CREATININE 0.9 mg/dL (0.6-1.3); GLUCOSE 125 mg/dL (70-105); UREA NITROGEN BLOOD 14 mg/dL (9-23)
[2024-01-26 02:26] LABS: ALANINE AMINOTRANSFERASE 45 IU/L (10-49); ALBUMIN 4.3 g/dL (3.2-4.8); ASPARTATE AMINOTRANSFERASE 28 IU/L (<34); BILIRUBIN DIRECT 0.2 mg/dL (<=3.0)
[2024-01-26 02:27] LABS: BILIRUBIN TOTAL 0.7 mg/dL (0.1-1.0); PROTEIN TOTAL 6.8 g/dL (6.0-8.3)
[2024-01-26] MEDS: ONDANSETRON HCL 4MG/2ML INJ IV NR (04:36)
[2024-01-26] MEDS: HALOPERIDOL LACTATE 5MG/ML VIAL IM NR (04:36)
[2024-01-26] MEDS: KETOROLAC 30MG/ML VIAL IM ONE (05:17)
[2024-01-26 05:19] VITALS: BP 144/72; PULSE 107; RESP 25
== END 2024-01-26 05:57 | disposition home or self-care (01) ==
LOC: ER 01:07
DX: G89.29 Other chronic pain (principal); R10.13 Epigastric pain; Z86.59 Personal history of other mental and behavioral disorders; Z79.899 Other long term (current) drug therapy
CPT/HCPCS: 80076; 80048; 83605; 83690; 85025; 36415; 96372; 96374; 99284; J1630; J1885; J2405; J7030; Z7610 ×3; C1893

== ENCOUNTER 2024-04-25 09:40 | Emergency (ER) | payer BC, MEDICAID ==
[~2024-04-25] VITALS: Ht 177.8 cm; Wt 90.0 kg
[~2024-04-25 09:40] MED LIST changes: +ONDA-239 PO; +ONDA-241 PO; -ONDA4TAB11 PO; -ONDA8TAB13 PO
[2024-04-25 09:41] VITALS: O2SAT 96
[2024-04-25 10:14] LABS: BASOPHILS % 0.5 % (0.0-2.0); EOSINOPHILS % 1.5 % (0.0-5.0); HEMATOCRIT. 40.6 % (42.0-52.0); HEMOGLOBIN. 13.4 g/dL (14.0-18.0); MEAN CORPUSCULAR HEMOGLOBIN 27.6 pg (28.0-32.0); MEAN CORPUSCULAR VOLUME 83.8 fL (80.0-94.0); MEAN PLATELET VOLUME 8.4 fl (7.4-10.4); MONOCYTES % 7.9 % (2.0-8.0); NEUTROPHILS % 67.1 % (40.0-76.0); PLATELET 177 x1000/uL (130-400); RED BLOOD CELL COUNT 4.85 mill/uL (4.7-6.1); WHITE BLOOD COUNT 5.7 x1000/uL (4.5-11.0)
[2024-04-25 10:22] LABS: CARBON DIOXIDE 27 mEq/L (21-32); CHLORIDE 106 mEq/L (98-107); POTASSIUM 3.9 mEq/L (3.5-5.1); SODIUM 138 mEq/L (136-145)
[2024-04-25 10:23] LABS: CALCIUM 9.5 mg/dL (8.7-10.4)
[2024-04-25 10:28] LABS: GLUCOSE 190 mg/dL (70-105); TROPONIN I HIGH SENSITIVITY 4 ng/L (3.0-53); UREA NITROGEN BLOOD 20 mg/dL (9-23)
[2024-04-25 10:29] LABS: ALANINE AMINOTRANSFERASE 73 IU/L (10-49)
[2024-04-25 10:30] LABS: ALBUMIN 4.3 g/dL (3.2-4.8); ASPARTATE AMINOTRANSFERASE 35 IU/L (<34); BILIRUBIN DIRECT 0.1 mg/dL (<=3.0); BILIRUBIN TOTAL 0.5 mg/dL (0.1-1.0); PROTEIN TOTAL 7.1 g/dL (6.0-8.3)
[2024-04-25 10:56] LABS: PROTHROMBIN TIME 10.7 sec (9.6-11.0)
[2024-04-25] MEDS: SODIUM CHLORIDE 0.9% 1,000 ML IV ONE (11:17)
[2024-04-25] MEDS: ONDANSETRON HCL 4MG/2ML INJ IV STA (11:17)
[2024-04-25] MEDS: FAMOTIDINE 20MG/2ML VIAL IV ONE (11:17)
[2024-04-25] MEDS: MORPHINE SULFATE 4 MG/ML INJ (FOR IV/IM USE) IV STA (11:17)
[2024-04-25] MEDS: MAGNESIUM/ALUMINUM HYDROXIDE/SIMETHICONE 30ML UDC PO STA (11:17)
[2024-04-25] MEDS ORDERED: MAG355OR21 MT (12:26)
[2024-04-25 12:27] VITALS: BP 95/47; PULSE 80; RESP 16; TEMP 37.05852; O2SAT 96
== END 2024-04-25 12:45 | disposition home or self-care (01) ==
LOC: ER 10:03
DX: R10.12 Left upper quadrant pain (principal); F12.90 Cannabis use, unspecified, uncomplicated; Z79.899 Other long term (current) drug therapy
CPT/HCPCS: 80076; 80048; 85025; 85610; 84484; 36415; 74176; 93005; 96361; 96374; 96375; 99285; J3490; J2405; J2270; J7030; Z7610 ×6

== ENCOUNTER 2024-05-20 10:52 | Emergency (ER) | payer BC ==
[~2024-05-20] VITALS: Ht 167.6 cm; Wt 100.0 kg
[2024-05-20] MEDS ORDERED: KETOROLAC 30MG/ML VIAL IV STA (10:58)
[2024-05-20] MEDS ORDERED: ONDANSETRON HCL 4MG/2ML INJ IV STA (10:58)
[2024-05-20 11:03] VITALS: TEMP 98.5; O2SAT 99
[2024-05-20 13:02] LABS: BASOPHILS % 0.4 % (0.0-2.0); EOSINOPHILS % 0.6 % (0.0-5.0); HEMATOCRIT. 44.8 % (42.0-52.0); HEMOGLOBIN. 14.7 g/dL (14.0-18.0); LYMPHOCYTES % 14.4 % (20.0-50.0); MEAN CORPUSCULAR HEMOGLOBIN 27.5 pg (28.0-32.0); MEAN CORPUSCULAR HGB CONC 32.9 g/dL (31.0-37.0); MEAN CORPUSCULAR VOLUME 83.6 fL (80.0-94.0); MEAN PLATELET VOLUME 8.3 fl (7.4-10.4); MONOCYTES % 5.5 % (2.0-8.0); NEUTROPHILS % 79.1 % (40.0-76.0); PLATELET 211 x1000/uL (130-400); RED BLOOD CELL COUNT 5.36 mill/uL (4.7-6.1); RED CELL DISTRIBUTION WIDTH 14.9 % (11.6-14.6); WHITE BLOOD COUNT 9.6 x1000/uL (4.5-11.0)
[2024-05-20 13:05] LABS: CHLORIDE 102 mEq/L (98-107); POTASSIUM 4.3 mEq/L (3.5-5.1); SODIUM 135 mEq/L (136-145)
[2024-05-20 13:06] LABS: CALCIUM 10.3 mg/dL (8.7-10.4); CARBON DIOXIDE 24 mEq/L (21-32)
[2024-05-20 13:10] LABS: INR 0.9; PROTHROMBIN TIME 10.6 sec (9.6-11.0)
[2024-05-20 13:11] LABS: GLUCOSE 163 mg/dL (70-105); UREA NITROGEN BLOOD 14 mg/dL (9-23)
[2024-05-20 14:10] VITALS: BP 179/105; PULSE 101; RESP 16; O2SAT 95
== END 2024-05-20 15:08 | disposition left against medical advice (07) ==
LOC: ER 11:05
DX: R10.84 Generalized abdominal pain (principal); F12.90 Cannabis use, unspecified, uncomplicated; Z79.899 Other long term (current) drug therapy
CPT/HCPCS: 80048; 83690; 85025; 85610; 36415; 99283; Z7610 ×2; C1893

== ENCOUNTER 2024-05-25 15:16 | Emergency (ER) | payer BC ==
[~2024-05-25] VITALS: Ht 170.2 cm; Wt 90.0 kg
[2024-05-25 15:17] VITALS: O2SAT 100
[2024-05-25 16:00] VITALS: BP 150/90; PULSE 101; RESP 25; TEMP 37.00296; O2SAT 98
[2024-05-25] MEDS: HALOPERIDOL LACTATE 5MG/ML VIAL IM ONE (16:32)
[2024-05-25] MEDS: KETOROLAC 30MG/ML VIAL IV ONE (16:33)
[2024-05-25] MEDS: LEVETIRACETAM 500MG PREMIX 100 ML IV ONE (16:33)
[2024-05-25 16:46] LABS: BASOPHILS % 0.7 % (0.0-2.0); EOSINOPHILS % 0.7 % (0.0-5.0); HEMATOCRIT. 42.7 % (42.0-52.0); HEMOGLOBIN. 13.9 g/dL (14.0-18.0); MEAN CORPUSCULAR HEMOGLOBIN 27.4 pg (28.0-32.0); MEAN CORPUSCULAR HGB CONC 32.5 g/dL (31.0-37.0); MEAN CORPUSCULAR VOLUME 84.3 fL (80.0-94.0); MEAN PLATELET VOLUME 8.5 fl (7.4-10.4); MONOCYTES % 6.5 % (2.0-8.0); NEUTROPHILS % 73.1 % (40.0-76.0); PLATELET 190 x1000/uL (130-400); RED BLOOD CELL COUNT 5.06 mill/uL (4.7-6.1); RED CELL DISTRIBUTION WIDTH 14.9 % (11.6-14.6); WHITE BLOOD COUNT 9.2 x1000/uL (4.5-11.0)
[2024-05-25 16:52] LABS: CHLORIDE 106 mEq/L (98-107); SODIUM 137 mEq/L (136-145)
[2024-05-25 16:54] LABS: CALCIUM 9.6 mg/dL (8.7-10.4); CARBON DIOXIDE 23 mEq/L (21-32)
[2024-05-25 16:59] LABS: CREATININE 0.9 mg/dL (0.6-1.3); GLUCOSE 137 mg/dL (70-105); UREA NITROGEN BLOOD 14 mg/dL (9-23)
[2024-05-25 17:00] LABS: ALANINE AMINOTRANSFERASE 43 IU/L (10-49)
[2024-05-25 17:01] LABS: ALBUMIN 4.4 g/dL (3.2-4.8); ASPARTATE AMINOTRANSFERASE 21 IU/L (<34); BILIRUBIN DIRECT 0.1 mg/dL (<=3.0); BILIRUBIN TOTAL 0.4 mg/dL (0.1-1.0); PROTEIN TOTAL 7.2 g/dL (6.0-8.3)
[2024-05-25 17:10] LABS: ETHANOL BLOOD < 10 mg/dL (<10)
[2024-05-25] MEDS ORDERED: LEVETIRACETAM 1000MG PREMIX 100 ML IV SCH (21:00)
== END 2024-05-25 16:09 | disposition home or self-care (01) ==
LOC: ER 15:16
DX: G89.29 Other chronic pain (principal); R10.84 Generalized abdominal pain; R56.9 Unspecified convulsions; F19.90 Other psychoactive substance use, unspecified, uncomplicated; Z79.899 Other long term (current) drug therapy
CPT/HCPCS: 80076; 80048; 80320; 83690; 85025; 36415; 96365; 96372; 96375; 99284; J1953; J1630; J1885; Z7610 ×4; G0480

== ENCOUNTER 2024-06-08 08:30 | Emergency (ER) | payer BC, MEDICAID ==
[~2024-06-08] VITALS: Ht 165.1 cm; Wt 91.0 kg
[2024-06-08 08:33] VITALS: TEMP 97.4; O2SAT 94
[2024-06-08 09:08] LABS: CHLORIDE 106 mEq/L (98-107); POTASSIUM 4.2 mEq/L (3.5-5.1); SODIUM 139 mEq/L (136-145)
[2024-06-08 09:09] LABS: CALCIUM 9.4 mg/dL (8.7-10.4); CARBON DIOXIDE 24 mEq/L (21-32)
[2024-06-08 09:14] LABS: CREATININE 0.9 mg/dL (0.6-1.3); GLUCOSE 211 mg/dL (70-105); UREA NITROGEN BLOOD 15 mg/dL (9-23)
[2024-06-08 09:16] LABS: ALANINE AMINOTRANSFERASE 46 IU/L (10-49); ALBUMIN 4.3 g/dL (3.2-4.8); ASPARTATE AMINOTRANSFERASE 22 IU/L (<34); BILIRUBIN TOTAL 0.2 mg/dL (0.1-1.0)
[2024-06-08 09:17] LABS: BILIRUBIN DIRECT < 0.1 mg/dL (<=3.0)
[2024-06-08 09:21] LABS: INR 0.9; PROTHROMBIN TIME 10.4 sec (9.6-11.0)
[2024-06-08 09:24] LABS: BASOPHILS % 0.2 % (0.0-2.0); EOSINOPHILS % 1.2 % (0.0-5.0); HEMATOCRIT. 39.7 % (42.0-52.0); HEMOGLOBIN. 12.9 g/dL (14.0-18.0); MEAN CORPUSCULAR HEMOGLOBIN 27.4 pg (28.0-32.0); MEAN CORPUSCULAR HGB CONC 32.5 g/dL (31.0-37.0); MEAN CORPUSCULAR VOLUME 84.2 fL (80.0-94.0); MEAN PLATELET VOLUME 8.5 fl (7.4-10.4); MONOCYTES % 6.2 % (2.0-8.0); NEUTROPHILS % 76.4 % (40.0-76.0); PLATELET 167 x1000/uL (130-400); RED BLOOD CELL COUNT 4.71 mill/uL (4.7-6.1); RED CELL DISTRIBUTION WIDTH 14.9 % (11.6-14.6); WHITE BLOOD COUNT 7.3 x1000/uL (4.5-11.0)
[2024-06-08 10:22] VITALS: BP 126/73; PULSE 88; RESP 18
[2024-06-08] MEDS: KETOROLAC 30MG/ML VIAL IV STA (10:22)
[2024-06-08] MEDS: ONDANSETRON HCL 4MG/2ML INJ IV STA (10:22)
== END 2024-06-08 13:30 | disposition left against medical advice (07) ==
LOC: ER 08:37 → EDBEDREQTM 10:12 → EDBEDREQ 10:12 → ER 13:30
DX: R10.84 Generalized abdominal pain (principal); R56.9 Unspecified convulsions; Z79.82 Long term (current) use of aspirin; Z79.899 Other long term (current) drug therapy
CPT/HCPCS: 80076; 80048; 83690; 85025; 85610; 36415; 93005; 96374; 96375; 99284; J1885; J2405; Z7610 ×3

== ENCOUNTER 2024-06-15 07:31 | Emergency (ER) | payer MEDICAID, MEDICARE ==
[~2024-06-15] VITALS: Ht 167.6 cm; Wt 90.0 kg
[2024-06-15 07:35] VITALS: BP 149/103; PULSE 118; RESP 18; TEMP 97.8; O2SAT 100
[2024-06-15] MEDS ORDERED: ONDANSETRON HCL 4MG/2ML INJ IV STA (07:40)
[2024-06-15] MEDS ORDERED: KETOROLAC 30MG/ML VIAL IV STA (07:40)
[2024-06-15] MEDS ORDERED: SODIUM CHLORIDE 0.9% 1,000 ML IV ONE (07:45)
[2024-06-15 09:54] LABS: BASOPHILS % 0.7 % (0.0-2.0); EOSINOPHILS % 0.2 % (0.0-5.0); HEMATOCRIT. 41.8 % (42.0-52.0); HEMOGLOBIN. 13.6 g/dL (14.0-18.0); LYMPHOCYTES % 12.9 % (20.0-50.0); MEAN CORPUSCULAR HEMOGLOBIN 27.4 pg (28.0-32.0); MEAN CORPUSCULAR HGB CONC 32.6 g/dL (31.0-37.0); MEAN CORPUSCULAR VOLUME 83.8 fL (80.0-94.0); MEAN PLATELET VOLUME 8.2 fl (7.4-10.4); MONOCYTES % 3.8 % (2.0-8.0); NEUTROPHILS % 82.4 % (40.0-76.0); PLATELET 234 x1000/uL (130-400); RED BLOOD CELL COUNT 4.98 mill/uL (4.7-6.1); RED CELL DISTRIBUTION WIDTH 15.5 % (11.6-14.6); WHITE BLOOD COUNT 9.9 x1000/uL (4.5-11.0)
[2024-06-15 10:02] LABS: CHLORIDE 103 mEq/L (98-107); SODIUM 136 mEq/L (136-145)
[2024-06-15 10:03] LABS: CALCIUM 9.7 mg/dL (8.7-10.4); CARBON DIOXIDE 24 mEq/L (21-32); PROTHROMBIN TIME 11.1 sec (9.6-11.0)
[2024-06-15 10:08] LABS: CREATININE 0.9 mg/dL (0.6-1.3); GLUCOSE 164 mg/dL (70-105); UREA NITROGEN BLOOD 11 mg/dL (9-23)
[2024-06-15] MEDS ORDERED: LEVETIRACETAM 1000MG PREMIX 100 ML IV ONE (11:30)
== END 2024-06-15 11:58 | disposition left against medical advice (07) ==
LOC: ER 07:31 → EDBEDREQ 11:03 → ER 11:58
DX: R11.2 Nausea with vomiting, unspecified (principal); R10.84 Generalized abdominal pain; Z79.899 Other long term (current) drug therapy
CPT/HCPCS: 80048; 83690; 85025; 85610; 36415; 99283; J7030; Z7610 ×3

== ENCOUNTER 2024-06-18 01:52 | Emergency (ER) | payer MEDICARE ==
[~2024-06-18] VITALS: Ht 165.1 cm; Wt 90.0 kg
[2024-06-18 01:55] VITALS: BP 168/107; PULSE 101; RESP 18; TEMP 98.1; O2SAT 100
[2024-06-18] MEDS: KETOROLAC 30MG/ML VIAL IM STA (03:29)
[2024-06-18] MEDS: MAGNESIUM/ALUMINUM HYDROXIDE/SIMETHICONE 30ML UDC PO STA (03:29)
[2024-06-18 04:59] LABS: BASOPHILS % 0.5 % (0.0-2.0); EOSINOPHILS % 0.2 % (0.0-5.0); HEMOGLOBIN. 13.7 g/dL (14.0-18.0); MEAN CORPUSCULAR HEMOGLOBIN 27.7 pg (28.0-32.0); MEAN CORPUSCULAR HGB CONC 33.3 g/dL (31.0-37.0); MEAN CORPUSCULAR VOLUME 83.3 fL (80.0-94.0); MEAN PLATELET VOLUME 8.4 fl (7.4-10.4); MONOCYTES % 3.9 % (2.0-8.0); NEUTROPHILS % 80.4 % (40.0-76.0); PLATELET 222 x1000/uL (130-400); RED BLOOD CELL COUNT 4.92 mill/uL (4.7-6.1); RED CELL DISTRIBUTION WIDTH 15.4 % (11.6-14.6); WHITE BLOOD COUNT 9.2 x1000/uL (4.5-11.0)
[2024-06-18 05:09] LABS: CHLORIDE 104 mEq/L (98-107); POTASSIUM 3.7 mEq/L (3.5-5.1); SODIUM 139 mEq/L (136-145)
[2024-06-18 05:10] LABS: CARBON DIOXIDE 26 mEq/L (21-32)
[2024-06-18 05:11] LABS: CALCIUM 9.8 mg/dL (8.7-10.4)
[2024-06-18 05:15] LABS: GLUCOSE 154 mg/dL (70-105); UREA NITROGEN BLOOD 15 mg/dL (9-23)
[2024-06-18 05:17] LABS: ALANINE AMINOTRANSFERASE 33 IU/L (10-49); ALBUMIN 4.8 g/dL (3.2-4.8); ASPARTATE AMINOTRANSFERASE 22 IU/L (<34); BILIRUBIN DIRECT 0.3 mg/dL (<=3.0)
[2024-06-18 05:18] LABS: PROTEIN TOTAL 7.5 g/dL (6.0-8.3)
== END 2024-06-18 07:34 | disposition home or self-care (01) ==
LOC: ER 01:52
DX: G89.29 Other chronic pain (principal); R10.9 Unspecified abdominal pain; Z79.899 Other long term (current) drug therapy; Z79.82 Long term (current) use of aspirin; Z86.59 Personal history of other mental and behavioral disorders
CPT/HCPCS: 80076; 80048; 83605; 83690; 85025; 36415; 96372; 99283; J1885; Z7610 ×3

== ENCOUNTER 2024-06-18 07:28 | Emergency (ER) | payer MEDICARE ==
[~2024-06-18] VITALS: Ht 172.7 cm; Wt 91.0 kg
[2024-06-18 07:41] VITALS: O2SAT 99
[2024-06-18 08:13] LABS: CHLORIDE 102 mEq/L (98-107); POTASSIUM 3.8 mEq/L (3.5-5.1); SODIUM 138 mEq/L (136-145)
[2024-06-18 08:14] LABS: CARBON DIOXIDE 23 mEq/L (21-32)
[2024-06-18 08:17] LABS: BASOPHILS % 1.3 % (0.0-2.0); EOSINOPHILS % 0.4 % (0.0-5.0); HEMOGLOBIN. 14.5 g/dL (14.0-18.0); LYMPHOCYTES % 24.2 % (20.0-50.0); MEAN CORPUSCULAR HGB CONC 32.2 g/dL (31.0-37.0); MEAN PLATELET VOLUME 8.3 fl (7.4-10.4); MONOCYTES % 6.8 % (2.0-8.0); NEUTROPHILS % 67.3 % (40.0-76.0); PLATELET 200 x1000/uL (130-400); RED BLOOD CELL COUNT 5.36 mill/uL (4.7-6.1); RED CELL DISTRIBUTION WIDTH 15.7 % (11.6-14.6); WHITE BLOOD COUNT 7.4 x1000/uL (4.5-11.0)
[2024-06-18 08:19] LABS: ETHANOL BLOOD < 10 mg/dL (<10); GLUCOSE 153 mg/dL (70-105); UREA NITROGEN BLOOD 16 mg/dL (9-23)
[2024-06-18 10:30] VITALS: BP 150/69; PULSE 86; RESP 19; TEMP 36.78072; O2SAT 98
== END 2024-06-18 13:59 | disposition left against medical advice (07) ==
LOC: ER 07:28
DX: R56.9 Unspecified convulsions (principal); R10.9 Unspecified abdominal pain; Z79.899 Other long term (current) drug therapy; Z79.82 Long term (current) use of aspirin; Z98.890 Other specified postprocedural states
CPT/HCPCS: 80048; 80320; 85025; 36415; 99283; Z7610; A4606; A4663; G0480

== ENCOUNTER 2024-06-28 06:11 | Emergency (ER) | payer MEDICAID, MEDICARE ==
[~2024-06-28] VITALS: Ht 175.3 cm; Wt 90.0 kg
[2024-06-28 06:26] VITALS: TEMP 98.1; O2SAT 100
[2024-06-28 07:22] VITALS: BP 141/101; PULSE 92; RESP 16
[2024-06-28] MEDS: KETOROLAC 30MG/ML VIAL IV STA (07:22)
[2024-06-28] MEDS: SODIUM CHLORIDE 0.9% 1,000 ML IV ONE (07:22)
[2024-06-28] MEDS: ONDANSETRON HCL 4MG/2ML INJ IV STA (07:22)
== END 2024-06-28 15:23 | disposition left against medical advice (07) ==
LOC: ER 06:11 → EDBEDREQTM 07:08 → EDBEDREQ 07:08 → ER 15:23
DX: R19.7 Diarrhea, unspecified (principal); R10.9 Unspecified abdominal pain; Z79.82 Long term (current) use of aspirin; Z79.899 Other long term (current) drug therapy
CPT/HCPCS: 99284; 96374; 96361; 96375; J1885; J2405; J7030